=== PATIENT | male | born 1955 | race Two or more races ===

== ENCOUNTER 2018-05-25 11:29 | Inpatient (IN) | payer OTHER ==
[~2018-05-25] VITALS: Ht 180.3 cm; Wt 86.0 kg
[2018-05-25] MEDS ORDERED: morphine 4 MG/ML VIAL IV STA (12:21)
[2018-05-25] MEDS ORDERED: ONDANSETRON 4 MG INJ IV STA (12:21)
[2018-05-25] MEDS ORDERED: SOD CHLORIDE 0.9% 1,000 ML IV STA (12:21)
[2018-05-25] MEDS ORDERED: OMEG-176 PO (13:00)
[2018-05-25] MEDS ORDERED: MULTI PO (13:00)
[2018-05-25] MEDS ORDERED: HYDROmorphONE 2 MG/ML SYG IV STA (13:24)
--- NOTE | 2018-05-25 14:26 | ERD ---
ER Documentation Chief Complaint Chief Complaint pt bib RA [id number] fall last night at home, left knee pain, "maybe passed out" HPI Patient is a 63-year-old male with hypertension who presents with passing out and left leg pain. The patient said that last night at 11 PM he said "I fainted or my knee went out". He said that his left knee is swollen. He got up to go to the bathroom when this episode happened. He was brought in by ambulance. He is having left leg pain as well. He has had no treatment yet. He denies any bleeding. Upon review of old medical records this is the patient's first visit to the emergency department. He does have a primary doctor. ROS All systems reviewed and are negative except as per history of present illness. Medications Home Meds Reported Medications Paradise-3S/Dha/Epa/Fish Oil (Fish Oil 1,000 mg Softgel) 1 Each Capsule, 1 EACH PO DAILY, CAP 05/25/18 Multivitamins* (Theragran*) 1 Tab Tab, 1 TAB PO DAILY, TAB 05/25/18 Allergies Allergies: Coded Allergies: No Known Allergy (Unverified , 05/25/18) PMhx/Soc History of Surgery: Yes (BACK SURGERY X2,APPENDECTOMY,BRAIN SX) Anesthesia Reaction: No Hx Neurological Disorder: No Hx Respiratory Disorders: No Hx Cardiac Disorders: Yes (HTN) Hx Psychiatric Problems: No Hx Miscellaneous Medical Probl: Yes (HIGH CHOLESTEROL) Hx Alcohol Use: Yes Hx Substance Use: No Hx Tobacco Use: Yes Smoking Status: Current some day smoker FmHx Family History: No diabetes Physical Exam Vitals Vital Signs Date Temp Pulse Resp B/P (MAP) Pulse Ox O2 O2 Flow FiO2 Time Delivery Rate 05/25/18 98.3 74 18 84/51 (62) 98 11:31 Physical Exam Const: No acute distress Head: Atraumatic Eyes: Normal Conjunctiva ENT: Normal External Ears, Nose and Mouth. Neck: Full range of motion. No meningismus. Resp: Clear to auscultation bilaterally Cardio: Regular rate and rhythm, no murmurs Abd: Soft, non tender, non distended. Normal bowel sounds Skin: No petechiae or rashes Back: No midline or flank tenderness Ext: Swelling to the proximal tibia/fibula area, patient able to wiggle toes on the left foot and does have 2+ DP pulses Neur: Awake and alert Psych: Normal Mood and Affect Result Diagram: 05/25/18 1251 05/25/18 1251 Results 24 hrs Laboratory Tests Test 05/25/18 12:51 White Blood Count 16.8 10^3/ul Red Blood Count 4.25 10^6/ul Hemoglobin 14.1 g/dl Hematocrit 40.9 % Mean Corpuscular Volume 96.2 fl Mean Corpuscular Hemoglobin 33.2 pg Mean Corpuscular Hemoglobin Concent 34.5 g/dl Red Cell Distribution Width 13.1 % Platelet Count 219 10^3/UL Mean Platelet Volume 9.4 fl Immature Granulocytes % 0.400 % Neutrophils % 46.5 % Lymphocytes % 46.0 % Monocytes % 6.4 % Eosinophils % 0.3 % Basophils % 0.4 % Nucleated Red Blood Cells % 0.0 /100WBC Immature Granulocytes # 0.060 10^3/ul Neutrophils # 7.8 10^3/ul Lymphocytes # 7.7 10^3/ul Monocytes # 1.1 10^3/ul Eosinophils # 0.1 10^3/ul Basophils # 0.1 10^3/ul Nucleated Red Blood Cells # 0.0 10^3/ul Prothrombin Time 12.8 Sec Prothrombin Time Ratio 1.0 INR International Normalized Ratio 0.95 Activated Partial Thromboplast Time 26.3 Sec Sodium Level 130 mmol/L Potassium Level 3.9 mmol/L Chloride Level 92 mmol/L Carbon Dioxide Level 26 mmol/L Anion Gap 12 Blood Urea Nitrogen 15 mg/dl Creatinine 0.87 mg/dl Est Glomerular Filtrat Rate mL/min > 60 mL/min Glucose Level 127 mg/dl Calcium Level 8.7 mg/dl Total Bilirubin 1.0 mg/dl Direct Bilirubin 0.00 mg/dl Indirect Bilirubin 1.0 mg/dl Aspartate Amino Transf (AST/SGOT) 27 IU/L Alanine Aminotransferase (ALT/SGPT) 22 IU/L Alkaline Phosphatase 82 IU/L Troponin I < 0.012 ng/ml Total Protein 7.3 g/dl Albumin 4.1 g/dl Globulin 3.20 g/dl Albumin/Globulin Ratio 1.28 Lipase 58 U/L Current Medications Medications Dose Sig/Yuni Start Time Status Last (Trade) Ordered Route PRN Stop Time Admin Dose Reason Admin Sodium 1,000 ml @ Q1H STAT 05/25/18 DC 05/25/18 Chloride 1,000 mls/hr IV 12:21 12:42 05/25/18 13:20 Morphine 4 mg ONCE STAT 05/25/18 DC 05/25/18 Sulfate IV 12:21 12:42 (morphine) 05/25/18 12:23 Ondansetron 4 mg ONCE STAT 05/25/18 DC 05/25/18 HCl (Zofran IV 12:21 12:42 Inj) 05/25/18 12:23 1 mg ONCE STAT 05/25/18 DC 05/25/18 Hydromorphone IV 13:24 13:40 HCl 05/25/18 (Dilaudid) 13:25 Ondansetron 4 mg ER BRIDGE 05/25/18 HCl (Zofran PRN IV 14:30 Inj) NAUSEA AND/OR 05/26/18 VOMITING 14:29 650 mg ER BRIDGE 05/25/18 Acetaminophen PRN PO MILD 14:30 (Tylenol PAIN(1-3)OR 05/26/18 Tab) ELEVATED TEMP 14:29 Procedures/MDM X-ray of the left tibia/fibula read by me: Proximal tibia and fibula fractures with mild displacement, comminuted Chest x-ray read by radiology. Splint Note Type: Posterior long leg Location: Left lower extremity Indication: Proximal tibia and fibula fracture Splint Assessment: Neurovascularly intact post splint placement with good fit. Smoking Cessation Therapy: Pt. was lectured for greater than 3 minutes on the health risks of continued smoking and the benefits of cessation. EKG read by me: Rate/Rhythm: Regular rate and rhythm at a normal rate Intervals: Normal Impression: No evidence of ischemia or arrhythmia Patient is a 63-year-old male with hypertension who presents with syncope. The patient was found to have a proximal tibia and fibula fracture. I believe the patient likely syncopized and fell to the ground onto his left leg. 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 I spoke with Dr. Singh from orthopedic surgery who will see the patient for fixation. I spoke with Dr. Meza from the panel team for admission to a telemetry bed. I do believe that inpatient admission is appropriate at this time as the patient had syncope but also a fracture which will need surgical fixation at the patient will not be able to ambulate or do activities of daily living. Departure Diagnosis: Primary Impression: Tibia/fibula fracture, shaft Encounter type: initial encounter Fracture type: closed Laterality: left Qualified Codes: S82.202A - Unspecified fracture of shaft of left tibia, initial encounter for closed fracture; S82.402A - Unspecified fracture of shaft of left fibula, initial encounter for closed fracture Additional Impressions: Syncope Syncope type: unspecified Qualified Codes: R55 - Syncope and collapse Fall Encounter type: initial encounter Qualified Codes: W19.XXXA - Unspecified fall, initial encounter Condition: KAMAR Su MD May 25, 2018 14:26
[2018-05-25] MEDS ORDERED: ONDANSETRON 4 MG INJ IV PRN ×2 (14:30→16:00)
[2018-05-25] MEDS ORDERED: ACETAMINOPHEN 325 MG TAB PO PRN ×2 (14:30→16:00)
[2018-05-25] MEDS ORDERED: CHOL100062 PO (15:26)
[2018-05-25] MEDS ORDERED: CYAN100080 PO (15:27)
[2018-05-25] MEDS ORDERED: [UNRECOGNIZED DRUG - CODE] TP (15:28)
[2018-05-25] MEDS ORDERED: POLY17PO6 PO (15:30)
[2018-05-25] MEDS ORDERED: ATEN-51 PO (15:31)
[2018-05-25] MEDS ORDERED: AMLO2.5T78 PO (15:31)
[2018-05-25] MEDS ORDERED: ALBU90AE INHALATION (15:32)
[2018-05-25] MEDS ORDERED: MULT-105 PO (15:32)
[2018-05-25] MEDS ORDERED: VIA100 PO (15:33)
[2018-05-25] MEDS ORDERED: FLUO10TA PO (15:34)
[2018-05-25] MEDS ORDERED: [UNRECOGNIZED DRUG - CODE] IU (15:36)
[2018-05-25] MEDS ORDERED: ATOR40TA68 PO (15:37)
[2018-05-25] MEDS ORDERED: ASPI-817 PO (15:37)
[2018-05-25] MEDS ORDERED: AMLO5TAB4 PO (15:38)
--- NOTE | 2018-05-25 15:39 | HP ---
Date/Time of Note Date/Time of Note DATE: 05/25/18 TIME: 15:39 Assessment/Plan VTE Prophylaxis Pharmacological prophylaxis: LMWH Lines/Catheters IV Catheter Type (from [facility]): Saline Lock Assessment/Plan Hospital Course 63-year-old male with comorbidities including COPD, hypertension, dyslipidemia, and anxiety disorder with a ground-level fall with impact to the left lower extremity and imaging studies showing comminuted fracture of the left proximal tibia and mildly impacted fracture of the left proximal fibula, who will be admitted to inpatient setting for further treatment and evaluation. 1. Syncope. -Etiology unclear. -Obtain a 2D echocardiogram to evaluate left ventricular ejection fraction and evaluate for any structural heart disease. -Continue telemetry monitoring. -Rule out for any underlying ACS. -Obtain a carotid Doppler study to evaluate for any significant carotid artery stenosis. -Obtain a brain CT scan. -Obtain a cardiology evaluation. 2. Comminuted fracture of the left proximal tibia and mildly impacted fracture of the left proximal fibula. -Continue bedrest. -Continue pain control. -Start prophylactic anticoagulation. -Orthopedic surgery consult. -Nonweightbearing on the left lower extremity. 3. Abnormal EKG. -Will rule out the patient for any ACS. -Obtain cardiology consult. -Obtain 2D echocardiogram. 4. Hypertension. -The patient was recently advised by his provider to hold antihypertensives because of hypotension and syncopal episodes. -Hold antihypertensives. 5. Dyslipidemia. -Low-cholesterol diet -Obtain fasting lipid panel. 6. COPD. -Continue maintenance inhalers. -Continue PRN LULA. 7. Anxiety disorder. -Continue BuSpar. 8. Alcohol dependence. -Daily beer drinker. -Start Librium taper to prevent any DTs. -IV benzodiazepines for any active DTs. -Daily multivitamins. 9. Hyponatremia. -Etiology unclear. -We will obtain a serum and urine osmolality. -Obtain a serum TSH and a cortisol level. -Monitor. 10. Leukocytosis. -Etiology unclear. -Probably reactive in origin. -The patient remains afebrile. Plan: The patient will be admitted to inpatient telemetry floor. The patient will be started on a low-cholesterol diet. The patient will be started on DVT prophylaxis. The patient will remain a full code. Activities will be bedrest. The rest of the patient's management will be based on the clinical course, inputs from consultants, and the results of diagnostic studies. Based on the patient's clinical presentation, he most probably requires at least 2 midnights' stay for further management and evaluation of his clinical presentation. The patient was seen in collaboration with Dr. Meza. Result Diagram: 05/25/18 1251 05/25/18 1251 Results 24hrs Laboratory Tests Test 05/25/18 12:51 White Blood Count 16.8 H Red Blood Count 4.25 L Hemoglobin 14.1 Hematocrit 40.9 L Mean Corpuscular Volume 96.2 Mean Corpuscular Hemoglobin 33.2 H Mean Corpuscular Hemoglobin Concent 34.5 Red Cell Distribution Width 13.1 Platelet Count 219 Mean Platelet Volume 9.4 Immature Granulocytes % 0.400 Neutrophils % 46.5 Lymphocytes % 46.0 Monocytes % 6.4 Eosinophils % 0.3 Basophils % 0.4 Nucleated Red Blood Cells % 0.0 Immature Granulocytes # 0.060 H Neutrophils # 7.8 H Lymphocytes # 7.7 H Monocytes # 1.1 H Eosinophils # 0.1 Basophils # 0.1 Nucleated Red Blood Cells # 0.0 Prothrombin Time 12.8 Prothrombin Time Ratio 1.0 INR International Normalized Ratio 0.95 Activated Partial Thromboplast Time 26.3 Sodium Level 130 L Potassium Level 3.9 Chloride Level 92 L Carbon Dioxide Level 26 Anion Gap 12 Blood Urea Nitrogen 15 Creatinine 0.87 Est Glomerular Filtrat Rate mL/min > 60 Glucose Level 127 Calcium Level 8.7 Total Bilirubin 1.0 Direct Bilirubin 0.00 Indirect Bilirubin 1.0 Aspartate Amino Transf (AST/SGOT) 27 Alanine Aminotransferase (ALT/SGPT) 22 Alkaline Phosphatase 82 Troponin I < 0.012 Total Protein 7.3 Albumin 4.1 Globulin 3.20 Albumin/Globulin Ratio 1.28 Lipase 58 HPI/ROS Admit Date/Time Admit Date/Time May 25, 2018 at 14:20 Hx of Present Illness This is a 63-year-old male with a past medical history of hypertension currently off antihypertensives because of frequent fainting spells, COPD, dyslipidemia, and anxiety disorder. The patient had a fall last night at 11 PM in his apartment. The patient verbalized that he got out of his bed and walked to the bathroom and he does not remember anything. The next thing he remembers was him lying on the floor. The patient crawled to his bedroom. The patient called his neighbor the next morning and was brought to the ER by EMS. He reported pain in the left lower extremity and inability to ambulate. The patient does not remember if he hit his head. He verbalized that he has been having frequent episodes of fainting in the recent past and he was told not to take his antihypertensives because his syncopal episodes are caused by hypotension. The patient denied any chest pain and the patient denied any history of seizures. In the emergency room, the patient underwent a x-ray of the left lower extremity that was showing comminuted fracture of the left proximal tibia with mild medial and anterior displacement of the distal fracture fragments along with mildly impacted fracture of the left proximal fibula. A splint was put in by the ER physician. An orthopedic surgery consult was obtained. ROS Constitutional: no complaints Eyes: no complaints ENT: no complaints Respiratory: no complaints Cardiovascular: no complaints Gastrointestinal: no complaints Genitourinary: no complaints Musculoskeletal: bone/joint pain Skin: no complaints Neurologic: no complaints Endocrine: no complaints Lymphatic: no complaints Psychological: no complaints Immunologic: no complaints PMH/Family/Social Past Medical History 1. Dyslipidemia. 2. COPD. 3. Hypertension. 4. Anxiety disorder. Coded Allergies: No Known Allergy (Unverified , 05/25/18) Past Surgical History 1. Brain surgery as a child. 2. Appendectomy. Social History He is . Lives by himself in an apartment. Alcohol Use: heavy Smoking Status: Former smoker Drug Use: none Exam/Review of Systems Vital Signs Vitals Vital Signs Date Temp Pulse Resp B/P (MAP) Pulse Ox O2 O2 Flow FiO2 Time Delivery Rate 05/25/18 89 18 106/62 94 Nasal 2.0 14:41 (77) Cannula 05/25/18 98.3 11:31 Exam Exam General: Adequately build 63 year-old male lying in bed in no apparent distress. HEENT: Normocephalic. Surgical scar the scalp in the left occipitoparietal area. Eyes: Anicteric sclerae, conjunctivae clear. ENT: Nasal septum midline, oral mucosa moist. Neck supple, no JVD noticed. Respiratory: Bilaterally diminished breath sounds. No use of accessory muscles of respiration. No adventitious breath sounds. Cardiovascular: S1, S2 heard. Regular rate and rhythm. Abdomen: Soft, nontender, and nondistended. Bowel sounds positive in all 4 jhon drants. Genitourinary: Deferred. Extremities: No cyanosis, no clubbing. Peripheral pulses palpable. Left lower extremity crusting present. Toes on the left foot could be moved. Neurologic: Cranial nerves II through XII grossly intact. The patient is awake, alert, and oriented. Skin: Normal skin turgor. No skin rashes. Additional Comments CXR IMPRESSION: 1. No radiographic evidence of acute cardiopulmonary disease. 2. Mild cardiomegaly and aortic atherosclerosis. X-Ray Tibia/Fibula IMPRESSION: 1. Comminuted fracture of the left proximal tibia with mild medial and anterior displacement of the distal fracture fragments. 2. Mildly impacted fracture of the left proximal fibula. DU HOWARD NP May 25, 2018 15:39
[2018-05-25 15:42] VITALS: BP 110/76; PULSE 93; RESP 20
[2018-05-25] MEDS ORDERED: DOCU250C58 PO (15:42)
[2018-05-25] MEDS ORDERED: SYMB80120 INHALATION (15:42)
[2018-05-25] MEDS ORDERED: OMEG-135 PO (15:43)
[2018-05-25] MEDS ORDERED: TIOT18CA INHALATION (15:44)
[2018-05-25] MEDS ORDERED: FLUT16SP17 NASAL (15:44)
[2018-05-25] MEDS ORDERED: TRA100 PO (15:45)
[2018-05-25 15:46] VITALS: PULSE 91
[2018-05-25] MEDS ORDERED: BUSP10TA2 PO (15:46)
[2018-05-25 16:00] VITALS: PULSE 97
[2018-05-25] MEDS ORDERED: morphine 2 MG INJ IV PRN (16:00)
[2018-05-25] MEDS ORDERED: NACL 0.9% 3 ML SYG IV SCH (16:00)
[2018-05-25] MEDS ORDERED: ALBUTEROL 0.083% (NEB) 2.5 MG/3 ML AMP HHN PRN (16:30)
[2018-05-25 16:41] VITALS: Ht 180.3 cm; Wt 86.0 kg
[2018-05-25] MEDS ORDERED: LORAZEPAM 4 MG/ML VIAL IV PRN (17:00)
--- NOTE | 2018-05-25 18:58 | NUR ---
Admitted from ER with Dx of Proximal tib/fib fracture/ Syncope. Awake, A&O x4. Oriented to room, call light use. Skin assessment done, photo taken. Discussed plan of care. Received t/o from Dr. Rosi Singh for CT left knee/ankle, pro walk for long leg brace with dial lock at the knee, approval form sent to central supply.
[2018-05-25 19:32] VITALS: BP 121/68; PULSE 94; RESP 22
[2018-05-25 20:00] VITALS: PULSE 91
[2018-05-25] MEDS: ARFORMOTEROL TARTRATE 15MCG/2 ML AMP NEB SCH (20:25)
--- NOTE | 2018-05-25 21:40 | NUR ---
Pt had CT of Left leg done. Pt given all night medications. Pt currently in room resting. Will continue to monitor.
[2018-05-25] MEDS: BUSPIRONE 10 MG TAB PO SCH (21:41)
[2018-05-25] MEDS: traZODone 100 MG TAB PO SCH (21:41)
[2018-05-25] MEDS: CHLORDIAZEPOXIDE 25 MG CAP PO SCH (21:41)
[2018-05-25] MEDS: ATORVASTATIN 40 MG TAB PO SCH (21:42)
--- NOTE | 2018-05-25 23:00 | CONS ---
DATE OF ADMISSION: 05/25/2018 DATE OF CONSULTATION: 05/25/2018 REASON FOR CONSULTATION: Preoperative evaluation. REQUESTING PHYSICIAN: Car Anne from the hospitalist service. HISTORY OF PRESENT ILLNESS: Mr. Valente is a 63-year-old male with history of recurrent syncopal epis odes over a 6-month period per patient, hypertension, dyslipidemia, COPD, recent quitting of tobacco, alcohol dependence who presented status post a syncopal episode with left leg pain. Upon arrival, t emperature was 98.3, blood pressure 84/51, pulse 74, respiratory rate 18, satting 98%. The patient's labs revealed a white blood cell count of 16.8, hemoglobin 14.1, platelet count 219; sodium 130, pot assium 3.9, creatinine 0.8, BUN 15; TSH of 4.1, free T4 of 1.3; INR of 0.95. The patient underwent a tib-fib x-ray revealing a comminuted fracture of left proximal tibia with mild medial and anterior d isplacement of the distal fracture fragment and a chest x-ray that revealed mild cardiomegaly and aor tic atherosclerosis. The patient's electrocardiogram revealed normal sinus rhythm, rate of 96, luis l axis, normal intervals with lateral T-wave inversions. The patient subsequently has been admitted to the floor and since admit to the floor denies chest pain, shortness of breath. He does have leg p ain. The patient states that he remembers getting up to go to bathroom at night, then he went to get some Skittles, he said, and the next thing he knows he woke up on the ground. PAST MEDICAL HISTORY: As above in HPI. MEDICATIONS CURRENTLY IN HOSPITAL: 1. Lovenox 40 mg subcutaneous daily. 2. Spiriva. 3. Vitamin D. 4. Vitamin B12. 5. Prozac. 6. Flonase. 7. MiraLax. 8. Theragran. 9. Lipitor 40 mg at bedtime. 10. BuSpar. 11. Trazodone. 12. Librium. 13. Ativan. 14. Morphine. ALLERGIES: NO KNOWN DRUG ALLERGIES. SOCIAL HISTORY: Remote tobacco, quit x1 to 2 months. Positive EtOH dependence. No illicit drug use . FAMILY HISTORY: No history of sudden cardiac or early CAD. REVIEW OF SYSTEMS: As above in HPI. CONSTITUTIONAL: No fevers or chills. PULMONARY: No current shortness of breath. CARDIOVASCULAR: No current chest pain. GASTROINTESTINAL: No vomiting. GENITOURINARY: No hematuria. MUSCULOSKELETAL: Degenerative joint disease, leg fracture. PSYCHIATRIC: The patient denies depression. NEUROLOGIC: No documented history of CVA. ENDOCRINE: No documented history of diabetes mellitus. PHYSICAL EXAMINATION: VITAL SIGNS: Temperature 98, blood pressure 110/76, pulse 92, respiratory rate 20, satting 98%. GENERAL: The patient is alert, awake, no acute distress. NECK: JVP approximately 8 to 9 cm of water. CHEST: Fair air movement throughout. HEART: Regular rate and rhythm, normal S1 and S2, I/ systolic murmur, nondisplaced PMI. ABDOMEN: Positive bowel sounds, soft. EXTREMITIES: No significant pitting edema, 1+ pulses in bilateral posterior tibial, left leg in a dr edgar. LABORATORIES: As above in HPI with most recently from today: Sodium 130, potassium 3.9, creatinine 0.8, BUN 15. TSH of 4.1. IMAGING STUDIES: As above in HPI. No further imaging studies for my review at this time. ECG: As above in HPI. No further electrocardiograms for my review at this time. IMPRESSION: 1. Syncope, rule out cardiac etiology, rule out cardiac arrhythmia. 2. Abnormal electrocardiogram, assess for acute coronary syndrome. 3. Dyslipidemia without medications. 4. Left tibia fracture. 5. History of chronic obstructive pulmonary disease. 6. Possible anxiety disorder. 7. Hyponatremia. 8. Leukocytosis. RECOMMENDATIONS: 1. At this time, we would maintain the patient on telemetry monitoring to assess for any possible ar rhythmia that caused patient's fall. 2. We will give patient IV fluid hydration and follow volume status closely. 3. Check a 2D echo to further assess this patient's ejection fraction, wall motion, any major abnorm alities. 4. Complete the patient's rule out for myocardial infarction to ensure this patient's constellation of symptoms are not a result of an acute coronary syndrome such as acute myocardial infarction. 5. Continue the patient's statin and adjust it according to a fasting lipid panel to be checked. 6. Continue to check serial EKGs to assess for any significant ongoing changes, repeat EKG in the mo rning, EKG for any complaints of chest pain or change in rhythm. 7. Pending ortho evaluation with probable need for lower extremity surgery. 8. Further recommendations pertaining to the surgical candidacy of the patient will be made after co mpletion of above studies including a 2D echo, serial troponin analysis, and serial blood pressures. Thank you for allowing me to take part in the care of this patient. I will continue to follow along very closely with you with further recommendations to be made as the patient progresses through his [facility] clinical course. Dictated By: IVANA TORRES/KAROLINE Conf#: [id number] DID#: [id number] CC: CAR ANNE BUCKRAM SEWER; JOHNY ROPER MD;*End*
[2018-05-25 23:35] VITALS: BP 121/71; PULSE 93; RESP 17
[2018-05-26] VITALS (13 sets, daily range): BP systolic 117–159; BP diastolic 64–78; PULSE 86–105; RESP 18–22
--- NOTE | 2018-05-26 07:29 | NUR ---
EOSS: Pt in room resting comfortably. Pt has no complaints, no s/s of distress. Bedside shift report given to ARLENE West.
[2018-05-26] MEDS: ARFORMOTEROL TARTRATE 15MCG/2 ML AMP NEB SCH ×2 (08:19→21:14)
[2018-05-26] MEDS: CHOLECALCIFEROL 1,000 UNIT TAB PO SCH (08:58)
[2018-05-26] MEDS: CYANOCOBALAMIN 500 MCG TAB PO SCH (08:58)
[2018-05-26] MEDS: TIOTROPIUM 18 MCG CAPSULE INHA DEV INH SCH (08:58)
[2018-05-26] MEDS: MULTIVITAMINS THERAPEUTIC TAB PO SCH (08:58)
[2018-05-26] MEDS: CHLORDIAZEPOXIDE 25 MG CAP PO SCH ×3 (08:58→20:30)
[2018-05-26] MEDS: FLUOXETINE 10 MG CAP PO SCH (08:58)
[2018-05-26] MEDS: BUSPIRONE 10 MG TAB PO SCH ×3 (08:58→21:29)
[2018-05-26] MEDS: DOCUSATE SODIUM 250 MG CAP PO SCH (08:58)
[2018-05-26] MEDS: FLUTICASONE 0.05% 16 GM NAS SPRAY NASAL SCH (08:58)
[2018-05-26] MEDS: POLYETHYLENE GLYCOL 17 GM PACKET PO SCH (08:58)
[2018-05-26] MEDS: ENOXAPARIN 40 MG/0.4 ML SYG SC SCH (09:32)
[2018-05-26] MEDS: morphine SULFATE/PF (2 MG/2 ML) SYG IV PRN ×3 (09:33→20:28)
[2018-05-26] MEDS ORDERED: IOHEXOL 100 ML ONE (14:11)
[2018-05-26] MEDS ORDERED: SOD CHLORIDE 0.9% 100 ML ONE (14:11)
--- NOTE | 2018-05-26 14:15 | PN ---
Date/Time of Note Date/Time of Note DATE: 05/26/18 TIME: 14:07 Assessment/Plan VTE Prophylaxis Risk score (from Ns)>0 risk: 5 SCD applied (from Ns): No SCD contraindicated: other Pharmacological prophylaxis: LMWH Lines/Catheters IV C[facility]ter Type ([facility] Saline Lock Assessment/Plan Hospital Course SUBJECTIVE: LLE pain well controlled. OBJECTIVE: Physical Exam General: Adequately build 63 year-old male lying in bed in no apparent distress. HEENT: Normocephalic. Surgical scar the scalp in the left occipitoparietal area. Eyes: Anicteric sclerae, conjunctivae clear. ENT: Nasal septum midline, oral mucosa moist. Neck supple, no JVD noticed. Respiratory: Bilaterally diminished breath sounds. No use of accessory muscles of respiration. No adventitious breath sounds. Cardiovascular: S1, S2 heard. Regular rate and rhythm. Abdomen: Soft, nontender, and nondistended. Bowel sounds positive in all 4 quadrants. Genitourinary: Deferred. Extremities: No cyanosis, no clubbing. Peripheral pulses palpable. Left lower extremity crusting present. Toes on the left foot could be moved. Neurologic: Cranial nerves II through XII grossly intact. The patient is awake, alert, and oriented. Skin: Normal skin turgor. No skin rashes. Labs & Vitals per chart ASSESSMENT & PLAN 63-year-old male with comorbidities including COPD, hypertension, dyslipidemia, and anxiety disorder with a ground-level fall with impact to the left lower extremity and imaging studies showing comminuted fracture of the left proximal tibia and mildly impacted fracture of the left proximal fibula, who was admitted to inpatient setting for further treatment and evaluation. 1. Syncope. -Etiology unclear. -Pending 2D echocardiogram to evaluate left ventricular ejection fraction and evaluate for any structural heart disease. -Continue telemetry monitoring. -Ruled out for any underlying ACS. -Carotid Doppler study showing moderate stenosis (50 - 69%) of the right internal carotid artery. -Brain CT scan negative for any acute findings. -Cardiology following. 2. Comminuted fracture of the left proximal tibia and mildly impacted fracture of the left proximal fibula. -Continue bedrest. -Continue pain control. -Continue prophylactic anticoagulation. -Orthopedic surgery consult. -Nonweightbearing on the left lower extremity. 3. Abnormal EKG. -Troponins negative. -Cardiology following. -Pending 2D echocardiogram. 4. Hypertension. -The patient was recently advised by his provider to hold antihypertensives because of hypotension and syncopal episodes. -Hold antihypertensives. 5. Dyslipidemia. -Low-cholesterol diet -Fasting lipid panel satisfactory. 6. COPD. -Continue maintenance inhalers. -Continue PRN LULA. 7. Anxiety disorder. -Continue BuSpar. 8. Alcohol dependence. -Daily beer drinker. -Continue Librium taper to prevent any DTs. -IV benzodiazepines for any active DTs. -Daily multivitamins. 9. Hyponatremia. -Etiology unclear. -Hypotonic. Probably secondary to alcoholism. 10. Leukocytosis. -Etiology unclear. -Probably reactive in origin. -The patient remains afebrile. 11. Fluids, electrolytes, and nutrition. -Low-cholesterol diet. 12. DVT prophylaxis. -Subcutaneous Lovenox. 13. Plan. -Obtain a CT to evaluate for any carotid stenosis. -Await cardiac clearance for surgical intervention. -Continue pain control. -Continue nonweightbearing of the left lower extremity. The patient was seen in collaboration with Dr. Mcintosh. Result Diagram: 05/26/18 0511 05/26/18 0511 Results 24hrs Laboratory Tests Test 05/25/18 17:33 05/25/18 17:50 05/26/18 05:11 Creatine Kinase 135 126 Creatine Kinase Index 1.3 1.6 Creatinine Kinase MB (Mass) 1.77 2.05 Troponin I < 0.012 < 0.012 Urine Osmolality 553 Urine Opiates Screen Positive Urine Barbiturates Negative Urine Amphetamines Screen Negative Urine Benzodiazepines Screen Negative Urine Cocaine Screen Negative Urine Cannabinoids Negative White Blood Count 14.9 H Red Blood Count 3.44 L Hemoglobin 11.6 L Hematocrit 33.6 L Mean Corpuscular Volume 97.7 Mean Corpuscular Hemoglobin 33.7 H Mean Corpuscular 34.5 Hemoglobin Concent Red Cell Distribution Width 12.9 Platelet Count 165 # Mean Platelet Volume 9.5 Immature Granulocytes % 0.400 Neutrophils % Segmented Neutrophils % (Manual) 43 Band Neutrophils % (Manual) 3 Lymphocytes % Lymphocytes % (Manual) 33 Reactive Lymphocytes % (Manual) 14 H Monocytes % Monocytes % (Manual) 3 Eosinophils % Eosinophils % (Manual) 2 Basophils % Basophils % (Manual) 1 Metamyelocytes % (manual) 1 H Nucleated Red Blood Cells % 0.0 Immature Granulocytes # 0.060 H Neutrophils # Neutrophils # (Manual) 6.5 Band Neutrophils # 0.4 Lymphocytes (Manual) 4.9 H Lymphocytes # Reactive Lymphocytes # 2.0 H Monocytes # Monocytes # (Manual) 0.4 Eosinophils # Basophils # Basophils # (Manual) 0.1 H Metamyelocytes # 0.1 H Nucleated Red Blood Cells # Platelet Estimate NORMAL Anisocytosis 1+ Prothrombin Time 13.9 Prothrombin Time Ratio 1.1 INR International 1.06 Normalized Ratio Activated Partial Thromboplast 29.2 Time Sodium Level 132 L Potassium Level 4.6 Chloride Level 93 L Carbon Dioxide Level 29 Anion Gap 10 Blood Urea Nitrogen 19 Creatinine 0.77 Est Glomerular Filtrat > 60 Rate mL/min Glucose Level 111 Calcium Level 8.4 Phosphorus Level 3.8 Magnesium Level 2.0 Total Bilirubin 0.9 Direct Bilirubin 0.00 Indirect Bilirubin 0.9 Aspartate Amino 21 Transf (AST/SGOT) Alanine 26 Aminotransferase (ALT/SGPT) Alkaline Phosphatase 65 Total Protein 5.8 #L Albumin 3.4 Globulin 2.40 Albumin/Globulin Ratio 1.41 Triglycerides Level 61 Cholesterol Level 126 LDL Cholesterol, Calculated 65 HDL Cholesterol 49 Cholesterol/HDL Ratio 2.5 Exam/Review of Systems Vital Signs Vitals Vital Signs Date Temp Pulse Resp B/P (MAP) Pulse Ox O2 O2 Flow FiO2 Time Delivery Rate 05/26/18 88 12:51 05/26/18 98.0 20 159/72 92 Nasal 11:33 (101) Cannula 05/26/18 2.0 08:26 Intake and Output 05/25/18 05/25/18 05/26/18 1515:00 23:00 07:00 IntakeIntake Total 400 ml 540 ml OutputOutput Total 100 ml 650 ml BalanceBalance 300 ml -110 ml Medications Medications Current Medications IV Flush (NS 3 ml) 3 ml PER PROTOCOL IV ; Start 05/25/18 at 16:00 Ondansetron HCl (Zofran Inj) 4 mg Q6H PRN IV NAUSEA AND/OR VOMITING; Start 05/25/18 at 16:00 Acetaminophen (Tylenol Tab) 650 mg Q6H PRN PO PAIN LEVEL 1-3 OR FEVER; Start 05/25/18 at 16:00 Acetaminophen/ Hydrocodone Bitart ([place] (5/325)) 1 tab Q6H PRN PO PAIN LEVEL 4-6; Start 05/25/18 at 16:00 Enoxaparin Sodium (Lovenox) 40 mg DAILY SC Last administered on 05/26/18 09:32; Admin Dose 40 MG; Start 05/26/18 at 09:00 Tiotropium [place] (Spiriva) 1 inh DAILY INH Last administered on 05/26/18 08:58; Admin Dose 1 INH; Start 05/26/18 at 09:00 Albuterol (Proventil 0.083% (Neb)) 2.5 mg Q4H RESP THERAPY PRN HHN SHORTNESS OF BREATH; Start 05/25/18 at 16:30 Atorvastatin Calcium (Lipitor) 40 mg QHS PO Last administered on 05/25/18 21:42; Admin Dose 40 MG; Start 05/25/18 at 21:00 Buspirone HCl (Buspar) 10 mg TID PO Last administered on 05/26/18 12:35; Admin Dose 10 MG; Start 05/25/18 at 21:00 Cholecalciferol (Vitamin D) 1,000 unit DAILY PO Last administered on 05/26/18 08:58; Admin Dose 1,000 UNIT; Start 05/26/18 at 09:00 Cyanocobalamin (Vitamin B12) 1,000 mcg DAILY PO Last administered on 05/26/18 08:58; Admin Dose 1,000 MCG; Start 05/26/18 at 09:00 Docusate Sodium (Colace) 250 mg DAILY PO Last administered on 05/26/18 08:58; Admin Dose 250 MG; Start 05/26/18 at 09:00 Fluoxetine HCl (Prozac) 10 mg DAILY PO Last administered on 05/26/18 08:58; Admin Dose 10 MG; Start 05/26/18 at 09:00 Fluticasone Propionate (Flonase 0.05% Nasal) 1 spray DAILY NASAL Last administered on 05/26/18 08:58; Admin Dose 1 SPRAY; Start 05/26/18 at 09:00 Polyethylene Glycol (Miralax) 17 gm DAILY PO Last administered on 05/26/18 08:58; Admin Dose 17 GM; Start 05/26/18 at 09:00 Trazodone HCl (Desyrel) 100 mg QHS PO Last administered on 05/25/18 21:41; Admin Dose 100 MG; Start 05/25/18 at 21:00 Arformoterol Tartrate (Brovana (Neb)) 2 ml BID RESP THERAPY NEB Last administered on 05/26/18 08:19; Admin Dose 2 ML; Start 05/25/18 at 20:00 Chlordiazepoxide (Librium) 25 mg TID PO Last administered on 05/26/18at 12:35; Admin Dose 25 MG; Start 05/25/18 at 21:00 Lorazepam (Ativan) 1 mg Q2H PRN IV Anxiety; Start 05/25/18 at 17:00 Multivitamins Therapeutic (Theragran) 1 tab DAILY PO Last administered on 05/26/18at 08:58; Admin Dose 1 TAB; Start 05/26/18 at 09:00 Morphine Sulfate (morphine SULFATE (PF)) 2 mg Q4H PRN IV PAIN LEVEL 7-10 Last administered on 05/26/18 09:33; Admin Dose 2 MG; Start 05/25/18 at 22:00 DU HOWARD NP May 26, 2018 14:15
--- NOTE | 2018-05-26 15:07 | CONS ---
Date/Time of Note Date/Time of Note DATE: 05/26/18 TIME: 15:04 Assessment/Plan Assessment/Plan Hospital Course IMPRESSION: 1. Syncope, rule out cardiac etiology, rule out cardiac arrhythmia. -neg trop x 3 2. Abnormal electrocardiogram, assess for acute coronary syndrome. 3. Dyslipidemia without medications. 4. Left tibia fracture. 5. History of chronic obstructive pulmonary disease. 6. Possible anxiety disorder. 7. Hyponatremia-slowly improving 8. Leukocytosis. REcc: -Tele -start BB -will f/u echo -pain control -continue statin -pnding ortho eval Result Diagram: 05/26/18 0511 05/26/18 0511 Results 24hrs Laboratory Tests Test 05/25/18 17:33 05/25/18 17:50 05/26/18 05:11 Creatine Kinase 135 126 Creatine Kinase Index 1.3 1.6 Creatinine Kinase MB (Mass) 1.77 2.05 Troponin I < 0.012 < 0.012 Urine Osmolality 553 Urine Opiates Screen Positive Urine Barbiturates Negative Urine Amphetamines Screen Negative Urine Benzodiazepines Screen Negative Urine Cocaine Screen Negative Urine Cannabinoids Negative White Blood Count 14.9 H Red Blood Count 3.44 L Hemoglobin 11.6 L Hematocrit 33.6 L Mean Corpuscular Volume 97.7 Mean Corpuscular Hemoglobin 33.7 H Mean Corpuscular 34.5 Hemoglobin Concent Red Cell Distribution Width 12.9 Platelet Count 165 # Mean Platelet Volume 9.5 Immature Granulocytes % 0.400 Neutrophils % Segmented Neutrophils % (Manual) 43 Band Neutrophils % (Manual) 3 Lymphocytes % Lymphocytes % (Manual) 33 Reactive Lymphocytes % (Manual) 14 H Monocytes % Monocytes % (Manual) 3 Eosinophils % Eosinophils % (Manual) 2 Basophils % Basophils % (Manual) 1 Metamyelocytes % (manual) 1 H Nucleated Red Blood Cells % 0.0 Immature Granulocytes # 0.060 H Neutrophils # Neutrophils # (Manual) 6.5 Band Neutrophils # 0.4 Lymphocytes (Manual) 4.9 H Lymphocytes # Reactive Lymphocytes # 2.0 H Monocytes # Monocytes # (Manual) 0.4 Eosinophils # Basophils # Basophils # (Manual) 0.1 H Metamyelocytes # 0.1 H Nucleated Red Blood Cells # Platelet Estimate NORMAL Anisocytosis 1+ Prothrombin Time 13.9 Prothrombin Time Ratio 1.1 INR International 1.06 Normalized Ratio Activated Partial Thromboplast 29.2 Time Sodium Level 132 L Potassium Level 4.6 Chloride Level 93 L Carbon Dioxide Level 29 Anion Gap 10 Blood Urea Nitrogen 19 Creatinine 0.77 Est Glomerular Filtrat > 60 Rate mL/min Glucose Level 111 Calcium Level 8.4 Phosphorus Level 3.8 Magnesium Level 2.0 Total Bilirubin 0.9 Direct Bilirubin 0.00 Indirect Bilirubin 0.9 Aspartate Amino 21 Transf (AST/SGOT) Alanine 26 Aminotransferase (ALT/SGPT) Alkaline Phosphatase 65 Total Protein 5.8 #L Albumin 3.4 Globulin 2.40 Albumin/Globulin Ratio 1.41 Triglycerides Level 61 Cholesterol Level 126 LDL Cholesterol, Calculated 65 HDL Cholesterol 49 Cholesterol/HDL Ratio 2.5 Consultation Date/Type/Reason Admit Date/Time May 25, 2018 at 14:20 Initial Consult Date 05/25/18 Type of Consult cardiology Reason for Consultation syncope Requesting Provider: DU HOWARD [employer] ESTIMATING MANAGER Exam/Review of Systems Vital Signs Vitals Vital Signs Date Temp Pulse Resp B/P (MAP) Pulse Ox O2 O2 Flow FiO2 Time Delivery Rate 05/26/18 88 12:51 05/26/18 98.0 20 159/72 92 Nasal 11:33 (101) Cannula 05/26/18 2.0 08:26 Intake and Output 05/25/18 05/25/18 05/26/18 1515:00 23:00 07:00 IntakeIntake Total 400 ml 540 ml OutputOutput Total 100 ml 650 ml BalanceBalance 300 ml -110 ml Exam Review of Systems: CONSTITUTIONAL: No fevers, chills. PULMONARY: No sob CARDIOVASCULAR: No chest pain/palpitations GASTROINTESTINAL: No nausea/vomiting. GENITOURINARY: No hematuria/dysuria. MUSCULOSKELETAL: pain in leg PSYCHIATRIC: The patient denies depression. NEUROLOGIC: No weakness Constitutional: alert Psych: no complaints Head: normocephalic ENMT: mucosa pink and moist Neck: supple, jvd (9 cm water) Respiratory: clear to auscultation Cardiovascular: regular rate and rhythm Gastrointestinal: soft, non-tender Musculoskeletal: muscle tone (normal) Extremities: edema (none) Neurological: other (NO focval deficits) Medications Medications Current Medications IV Flush (NS 3 ml) 3 ml PER PROTOCOL IV ; Start 05/25/18 at 16:00 Ondansetron HCl (Zofran Inj) 4 mg Q6H PRN IV NAUSEA AND/OR VOMITING; Start 05/25/18 at 16:00 Acetaminophen (Tylenol Tab) 650 mg Q6H PRN PO PAIN LEVEL 1-3 OR FEVER; Start 05/25/18 at 16:00 Acetaminophen/ Hydrocodone Bitart ([place] (5/325)) 1 tab Q6H PRN PO PAIN LEVEL 4-6; Start 05/25/18 at 16:00 Enoxaparin Sodium (Lovenox) 40 mg DAILY SC Last administered on 05/26/18 09:32; Admin Dose 40 MG; Start 05/26/18 at 09:00 Tiotropium [place] (Spiriva) 1 inh DAILY INH Last administered on 05/26/18 08:58; Admin Dose 1 INH; Start 05/26/18 at 09:00 Albuterol (Proventil 0.083% (Neb)) 2.5 mg Q4H RESP THERAPY PRN HHN SHORTNESS OF BREATH; Start 05/25/18 at 16:30 Atorvastatin Calcium (Lipitor) 40 mg QHS PO Last administered on 05/25/18at 21:42; Admin Dose 40 MG; Start 05/25/18 at 21:00 Buspirone HCl (Buspar) 10 mg TID PO Last administered on 05/26/18at 12:35; Admin Dose 10 MG; Start 05/25/18 at 21:00 Cholecalciferol (Vitamin D) 1,000 unit DAILY PO Last administered on 05/26/18 08:58; Admin Dose 1,000 UNIT; Start 05/26/18 at 09:00 Cyanocobalamin (Vitamin B12) 1,000 mcg DAILY PO Last administered on 05/26/18 08:58; Admin Dose 1,000 MCG; Start 05/26/18 at 09:00 Docusate Sodium (Colace) 250 mg DAILY PO Last administered on 05/26/18 08:58; Admin Dose 250 MG; Start 05/26/18 at 09:00 Fluoxetine HCl (Prozac) 10 mg DAILY PO Last administered on 05/26/18 08:58; Admin Dose 10 MG; Start 05/26/18 at 09:00 Fluticasone Propionate (Flonase 0.05% Nasal) 1 spray DAILY NASAL Last administered on 05/26/18 08:58; Admin Dose 1 SPRAY; Start 05/26/18 at 09:00 Polyethylene Glycol (Miralax) 17 gm DAILY PO Last administered on 05/26/18 08:58; Admin Dose 17 GM; Start 05/26/18 at 09:00 Trazodone HCl (Desyrel) 100 mg QHS PO Last administered on 05/25/18 21:41; Admin Dose 100 MG; Start 05/25/18 at 21:00 Arformoterol Tartrate (Brovana (Neb)) 2 ml BID RESP THERAPY NEB Last administered on 05/26/18 08:19; Admin Dose 2 ML; Start 05/25/18 at 20:00 Chlordiazepoxide (Librium) 25 mg TID PO Last administered on 05/26/18 12:35; Admin Dose 25 MG; Start 05/25/18 at 21:00 Lorazepam (Ativan) 1 mg Q2H PRN IV Anxiety; Start 05/25/18 at 17:00 Multivitamins Therapeutic (Theragran) 1 tab DAILY PO Last administered on 05/26/18 08:58; Admin Dose 1 TAB; Start 05/26/18 at 09:00 Morphine Sulfate (morphine SULFATE (PF)) 2 mg Q4H PRN IV PAIN LEVEL 7-10 Last administered on 05/26/18 09:33; Admin Dose 2 MG; Start 05/25/18 at 22:00 IVANA LANGSTON May 26, 2018 15:06
[2018-05-26] MEDS ORDERED: HYDROmorphONE 1 MG/ML SYG IV ONE ×2 (16:00)
--- NOTE | 2018-05-26 17:16 | RADRPT ---
Echocardiogram Report Patient Name: ANDREA MAS Gender: Male Date: 1955 Study Date: 26-May-2018 Editor Managing Director: Raeann Mendez RDCS Location: 603-A Ref. Physician: DU HOWARD Quality: Adequate Procedures: Transthoracic echocardiogram with complete 2D, M-Mode, and doppler examination. Indications: Evaluate Left Ventricular function. 2D/M Mode Doppler Measurement Value Normal Ranges Measurement Value Normal Ranges LVIDd 2D 3.4 3.5 - 5.6 cm AV Peak Yoandy 1.1 m/sec LVIDs 2D 2.3 2.1 - 4.1 cm AV Peak PG 5.0 mmHg FS 2D 32.5 % AI Peak PG 38.0 mmHg LVPWd 2D 1.1 0.6 - 1.1 cm AI Peak Yoandy 3.1 m/sec IVSd 2D 0.9 0.6 - 1.1 cm AI PHT 583.0 msec IVS/LVPW 2D 0.9 LVOT Peak Yoandy 0.9 m/sec AoR Diam 2D 3.8 2.0 - 3.7 cm LVOT Peak PG 3.0 mmHg LA/Ao 2D 1 0 - 1 MV E Peak Yoandy 0.6 m/sec EDV 2D 38.6 cm3 MV A Peak Yoandy 0.9 m/sec ESV 2D 11.9 cm3 MV E/A 0.6 LA Dimen 2D 3.6 2.3 - 4.0 cm MV Decel Time 183 msec MV E/A 0.6 Findings Left Ventricle: Normal left ventricular systolic function. Normal left ventricular cavity size. Left ventricular wall thickness upper limits of normal. Ejection fraction is visually estimated at 60 %. Tissue Doppler/Mitral Doppler indices are consistent with impaired relaxation (Stage I diastolic dysfunction). Right Ventricle: Normal right ventricular size. Normal right ventricular systolic function. Left Atrium: The left atrium is normal in size. Right Atrium: The right atrium is normal in size. Atrial Septum: Normal atrial septum. Bubble study was performed with and with out valsalva indicating no evidence of intra atrial shunt. Mitral Valve: Normal appearance of the mitral valve. Trace mitral regurgitation. Aortic Valve: Normal appearance of the aortic valve. Mild aortic valve regurgitation. Tricuspid Valve: Normal appearance of the tricuspid valve. There is trace tricuspid regurgitation. Pericardium: There is an anterior echo free space consistent with epicardial fat pad. Aorta: Sinotubular junction: 3.80 cm. IVC: Normal size and normal respiratory collapse consistent with normal right atrial pressure. Conclusions Normal left ventricular systolic function. Normal left ventricular cavity size. Left ventricular wall thickness upper limits of normal. Ejection fraction is visually estimated at 60 %. Tissue Doppler/Mitral Doppler indices are consistent with impaired relaxation (Stage I diastolic dysfunction). Normal atrial septum. Bubble study was performed with and with out valsalva indicating no evidence of intra atrial shunt. Normal appearance of the mitral valve. Trace mitral regurgitation. Normal appearance of the aortic valve. Mild aortic valve regurgitation. Normal appearance of the tricuspid valve. There is trace tricuspid regurgitation. Electronically Signed By: Herminio Mac 26-May-2018 17:15:48 -0800 Patient Name: ANDREA MAS Study Date: 26-May-2018 [id number]
--- NOTE | 2018-05-26 18:34 | NUR ---
Seen by Dr. Singh, assisted MD to re-align left leg w/ long leg brace applied. Pre medicated with dilaudid 1 mg IV once. Repeat xray of left knee/leg was ordered by MD. Plan : Awaiting for cardiac clearance for possible surgery.
[2018-05-26] MEDS: ATORVASTATIN 40 MG TAB PO SCH (20:28)
[2018-05-26] MEDS: traZODone 100 MG TAB PO SCH (20:29)
[2018-05-26] MEDS: METOPROLOL 25 MG TAB PO SCH (20:30)
--- NOTE | 2018-05-26 22:03 | CONS ---
DATE OF ADMISSION: 05/25/2018 DATE OF CONSULTATION: 05/25/2018 HISTORY OF PRESENT ILLNESS: The patient is a 63-year-old male, who was admitted on 05/25/2018 when daxa woodard was brought into the emergency room because of the painful swelling involving his left lower extrem ity, which developed following a fall during his fainting spell. He is not exactly sure what was the mechanism of injury to his left lower extremity. However, after the fall, he could not stand up or walk because of the pain. PAST HISTORY: He is known to have several medical problems including hypertension, dyslipidemia, [employer] D and anxiety disorder. He is known to be a smoker, and he also has alcohol dependency. He had an a ppendectomy and back surgery in the past. PHYSICAL EXAMINATION: My examination revealed a 63-year-old male, who is not in any acute distress. His left lower extremity was immobilized in a long leg brace with a dial lock at the knee joint. Li mited examination through the brace revealed an obvious swelling around the left knee along with the tenderness over the proximal portion of the left leg. There was no local tenderness around the left ankle, and there were mild swelling, probably from the swelling around the left knee. There was no evidence of acute neurovascular compromise involving the left lower extremity. DIAGNOSTIC STUDIES: X-rays of the left knee and leg revealed a presence of fracture involving the pr oximal shaft of the left tibia with extension up to the medial tibial plateau along with the x-rays i nvolving the fibular neck. The fractures were minimally displaced. DIAGNOSTIC IMPRESSION: Orthopedic surgical problem is fracture involving the proximal shaft of the l eft tibia combined with the undisplaced medial tibial plateau fracture along with the fibular neck fr acture. TREATMENT PLAN: 1. Trial of conservative nonsurgical treatment with manipulative reduction and immobilization in a l eleanor leg brace. 2. If the alignment was not satisfactory or cannot be maintained in a satisfactory alignment, then o pen reduction and internal fixation of the proximal tibia and medial tibial plateau fracture have to be considered. Dictated By: KELSEY SOL MD IK/NTS Conf#: [id number] DID#: [id number] CC: JOHNY ROPER MD;*EndCC*
--- NOTE | 2018-05-26 23:36 | OPR ---
DATE OF OPERATION: 05/26/2018 PREOPERATIVE DIAGNOSIS: Proximal tibial shaft fracture with extension into the medial tibial plateau along with the fibular neck fracture. POSTOPERATIVE DIAGNOSIS: Proximal tibial shaft fracture with extension into the medial tibial platea u along with the fibular neck fracture. PROCEDURE PERFORMED: Manipulative reduction of the proximal tibial shaft fracture with extension int o the medial tibial plateau followed by immobilization of the left lower extremity in a long leg brac e. ANESTHESIA: IV sedation with 1 mg of Dilaudid. SURGEON: Kelsey Sol MD. DESCRIPTION OF PROCEDURE: After positioning the patient properly, the proximal thigh portion of the long leg brace was stabilized in the proximal femur, and then with the distal portion of the brace fr ee of the leg, manipulative reduction was carried out by exerting distal axial pull along with the ro tatory adjustment and then this was stabilized by applying the distal portion of the brace into the p roximal and mid portion of the leg. After the stabilization, the ____ lock of the knee was locked in full extension. The patient tolerated the entire procedure very well without any unusual problems. Postop, repeated x-rays were ordered. Dictated By: KELSEY SOL MD IK/NTS Conf#: [id number] DID#: [id number] CC: JOHNY ROPER MD;*EndCC*
[2018-05-27] VITALS (9 sets, daily range): BP systolic 114–141; BP diastolic 55–73; PULSE 69–106; RESP 16–18
--- NOTE | 2018-05-27 07:13 | NUR ---
EOSS Hourly rounding performed, vitals stable through night, pt with leg pain r/t to fall injury, pain meds administered. Pt currently resting in bed, bed alarm on, call light within reach.
[2018-05-27] MEDS: ARFORMOTEROL TARTRATE 15MCG/2 ML AMP NEB SCH ×2 (08:27→19:49)
--- NOTE | 2018-05-27 08:40 | RADRPT ---
Vent Rate: 95 bpm RR Interval: 0 msec MS Interval: 152 msec QRS Duration: 88 msec QT Interval: 360 msec QTC Interval: 452 msec P-R-T [place]: 78 - 79 - 84 degrees Normal sinus rhythm Anteroseptal infarct , age undetermined Abnormal ECG Electronically Signed By: Chance Mcelroy [id number]
[2018-05-27] MEDS: CHOLECALCIFEROL 1,000 UNIT TAB PO SCH (09:30)
[2018-05-27] MEDS: BUSPIRONE 10 MG TAB PO SCH ×3 (09:30→20:44)
[2018-05-27] MEDS: METOPROLOL 25 MG TAB PO SCH ×2 (09:30→20:45)
[2018-05-27] MEDS: FLUOXETINE 10 MG CAP PO SCH (09:30)
[2018-05-27] MEDS: DOCUSATE SODIUM 250 MG CAP PO SCH (09:31)
[2018-05-27] MEDS: MULTIVITAMINS THERAPEUTIC TAB PO SCH (09:31)
[2018-05-27] MEDS: POLYETHYLENE GLYCOL 17 GM PACKET PO SCH (09:31)
[2018-05-27] MEDS: CYANOCOBALAMIN 500 MCG TAB PO SCH (09:31)
[2018-05-27] MEDS: ENOXAPARIN 40 MG/0.4 ML SYG SC SCH (09:35)
[2018-05-27] MEDS: FLUTICASONE 0.05% 16 GM NAS SPRAY NASAL SCH (09:37)
[2018-05-27] MEDS: CHLORDIAZEPOXIDE 25 MG CAP PO SCH (09:37)
[2018-05-27] MEDS: TIOTROPIUM 18 MCG CAPSULE INHA DEV INH SCH (09:37)
[2018-05-27] MEDS: HYDROCODONE/APAP (5/325) TAB PO PRN (09:46)
--- NOTE | 2018-05-27 11:33 | PN ---
Date/Time of Note Date/Time of Note DATE: 05/27/18 TIME: 11:18 Assessment/Plan VTE Prophylaxis Risk score (from Nsg)>0 risk: 5 SCD applied (from Ns): No SCD contraindicated: other Pharmacological prophylaxis: LMWH Lines/Catheters IV Catheter Type (from Nrs): Peripheral IV Urinary Cath still in place: No Assessment/Plan Hospital Course SUBJECTIVE: LLE pain well controlled. OBJECTIVE: Physical Exam General: Adequately build 63 year-old male lying in bed in no apparent distress. HEENT: Normocephalic. Surgical scar the scalp in the left occipitoparietal area. Eyes: Anicteric sclerae, conjunctivae clear. ENT: Nasal septum midline, oral mucosa moist. Neck supple, no JVD noticed. Respiratory: Bilaterally diminished breath sounds. No use of accessory muscles of respiration. No adventitious breath sounds. Cardiovascular: S1, S2 heard. Regular rate and rhythm. Abdomen: Soft, nontender, and nondistended. Bowel sounds positive in all 4 quadrants. Genitourinary: Deferred. Extremities: No cyanosis, no clubbing. Peripheral pulses palpable. Left lower extremity brace in place. Minimal pedal edema on the left. Neurologic: Cranial nerves II through XII grossly intact. The patient is awake, alert, and oriented. Skin: Normal skin turgor. No skin rashes. Labs & Vitals per chart ASSESSMENT & PLAN 63-year-old male with comorbidities including COPD, hypertension, dyslipidemia, and anxiety disorder with a ground-level fall with impact to the left lower extremity and imaging studies showing comminuted fracture of the left proximal tibia and mildly impacted fracture of the left proximal fibula, who was admitted to inpatient setting for further treatment and evaluation. 1. Syncope. -Etiology unclear. -2D echocardiogram showing preserved LVEF. -Continue telemetry monitoring. -Ruled out for any underlying ACS. -Carotid Doppler study showing moderate stenosis (50 - 69%) of the right internal carotid artery. -Neck CTA showing focal 50 - 69% stenosis proximal right ICA due to calcified plaque; focal 50% stenosis proximal left ICA due to calcified plaque. -Brain CT scan negative for any acute findings. -Cardiology following. 2. Comminuted fracture of the left proximal tibia and mildly impacted fracture of the left proximal fibula. -Continue bedrest. -Continue pain control. -Continue prophylactic anticoagulation. -S/P manipulative reduction of the proximal tibial shaft fracture with extension into the medial tibial plateau followed by immobilization of the left lower extremity in a long leg brace on 05/26/2018. -Nonweightbearing on the left lower extremity. 3. Carotid artery stenosis. -Neck CTA showing focal 50 - 69% stenosis proximal right ICA due to calcified plaque; focal 50% stenosis proximal left ICA due to calcified plaque. -Vascular Surgery consult obtained. -Hold initiation of antiplatelet(ASA) therapy in anticipation for any surgical intervention. 4. Hypertension. -Continue BBs. 5. Dyslipidemia. -Low-cholesterol diet -Fasting lipid panel satisfactory. 6. COPD. -Continue maintenance inhalers. -Continue PRN LULA. 7. Anxiety disorder. -Continue BuSpar. 8. Alcohol dependence. -Daily beer drinker. -Continue Librium taper to prevent any DTs. -IV benzodiazepines for any active DTs. -Daily multivitamins. 9. Hyponatremia. -Etiology unclear. -Hypotonic. -Probably secondary to alcoholism. 10. Leukocytosis. -Etiology unclear. -Probably reactive in origin. -The patient remains afebrile. 11. Fluids, electrolytes, and nutrition. -Low-cholesterol diet. 12. DVT prophylaxis. -Subcutaneous Lovenox. 13. Plan. -Continue pain control. -Continue nonweightbearing of the left lower extremity. -Obtain Vascular Surgery consult for evaluation of carotid artery disease. Plan of care was explained to the patient and updated the patient's daughter Madyson @ [phone]. The patient was seen in collaboration with Dr. Mcintosh. Result Diagram: 05/27/18 0449 05/27/18 0449 Results 24hrs Laboratory Tests Test 05/27/18 04:49 White Blood Count 14.7 H Red Blood Count 3.15 L Hemoglobin 10.7 L Hematocrit 30.9 L Mean Corpuscular Volume 98.1 Mean Corpuscular Hemoglobin 34.0 H Mean Corpuscular Hemoglobin Concent 34.6 Red Cell Distribution Width 12.9 Platelet Count 151 Mean Platelet Volume 9.3 Immature Granulocytes % 0.300 Neutrophils % 41.7 Lymphocytes % 49.0 Monocytes % 7.6 Eosinophils % 1.1 Basophils % 0.3 Nucleated Red Blood Cells % 0.0 Immature Granulocytes # 0.050 H Neutrophils # 6.1 Lymphocytes # 7.2 H Monocytes # 1.1 H Eosinophils # 0.2 Basophils # 0.0 Nucleated Red Blood Cells # 0.0 Sodium Level 130 L Potassium Level 4.6 Chloride Level 94 L Carbon Dioxide Level 30 Anion Gap 6 Blood Urea Nitrogen 17 Creatinine 0.71 Est Glomerular Filtrat Rate mL/min > 60 Glucose Level 107 Calcium Level 8.4 Phosphorus Level 3.9 Magnesium Level 1.9 Exam/Review of Systems Vital Signs Vitals Vital Signs Date Temp Pulse Resp B/P (MAP) Pulse Ox O2 O2 Flow FiO2 Time Delivery Rate 05/27/18 101 08:38 05/27/18 93 Nasal 3.0 08:25 Cannula 05/27/18 98.0 133/72 07:50 (92) Intake and Output 05/26/18 05/26/18 05/27/18 1515:00 23:00 07:00 IntakeIntake Total 800 ml 330 ml OutputOutput Total 650 ml 500 ml BalanceBalance 150 ml -170 ml Medications Medications Current Medications IV Flush (NS 3 ml) 3 ml PER PROTOCOL IV ; Start 05/25/18 at 16:00 Ondansetron HCl (Zofran Inj) 4 mg Q6H PRN IV NAUSEA AND/OR VOMITING; Start 05/25/18 at 16:00 Acetaminophen (Tylenol Tab) 650 mg Q6H PRN PO PAIN LEVEL 1-3 OR FEVER; Start 05/25/18 at 16:00 Acetaminophen/ Hydrocodone Bitart ([place] (5/325)) 1 tab Q6H PRN PO PAIN LEVEL 4-6 Last administered on 05/27/18at 09:46; Admin Dose 1 TAB; Start 05/25/18 at 16:00 Enoxaparin Sodium (Lovenox) 40 mg DAILY SC Last administered on 05/27/18at 09:35; Admin Dose 40 MG; Start 05/26/18 at 09:00 Tiotropium [place] (Spiriva) 1 inh DAILY INH Last administered on 05/27/18at 09:37; Admin Dose 1 INH; Start 05/26/18 at 09:00 Albuterol (Proventil 0.083% (Neb)) 2.5 mg Q4H RESP THERAPY PRN HHN SHORTNESS OF BREATH; Start 05/25/18 at 16:30 Atorvastatin Calcium (Lipitor) 40 mg QHS PO Last administered on 05/26/18at 20:28; Admin Dose 40 MG; Start 05/25/18 at 21:00 Buspirone HCl (Buspar) 10 mg TID PO Last administered on 05/27/18 09:30; Admin Dose 10 MG; Start 05/25/18 at 21:00 Cholecalciferol (Vitamin D) 1,000 unit DAILY PO Last administered on 05/27/18 09:30; Admin Dose 1,000 UNIT; Start 05/26/18 at 09:00 Cyanocobalamin (Vitamin B12) 1,000 mcg DAILY PO Last administered on 05/27/18 09:31; Admin Dose 1,000 MCG; Start 05/26/18 at 09:00 Docusate Sodium (Colace) 250 mg DAILY PO Last administered on 05/27/18 09:31; Admin Dose 250 MG; Start 05/26/18 at 09:00 Fluoxetine HCl (Prozac) 10 mg DAILY PO Last administered on 05/27/18 09:30; Admin Dose 10 MG; Start 05/26/18 at 09:00 Fluticasone Propionate (Flonase 0.05% Nasal) 1 spray DAILY NASAL Last admin istered on 05/27/18 09:37; Admin Dose 1 SPRAY; Start 05/26/18 at 09:00 Polyethylene Glycol (Miralax) 17 gm DAILY PO Last administered on 05/27/18 09:31; Admin Dose 17 GM; Start 05/26/18 at 09:00 Trazodone HCl (Desyrel) 100 mg QHS PO Last administered on 05/26/18 20:29; Admin Dose 100 MG; Start 05/25/18 at 21:00 Arformoterol Tartrate (Brovana (Neb)) 2 ml BID RESP THERAPY NEB Last admin istered on 05/27/18 08:27; Admin Dose 2 ML; Start 05/25/18 at 20:00 Chlordiazepoxide (Librium) 25 mg TID PO Last administered on 05/27/18 09:37; Admin Dose 25 MG; Start 05/25/18 at 21:00 Lorazepam (Ativan) 1 mg Q2H PRN IV Anxiety; Start 05/25/18 at 17:00 Multivitamins Therapeutic (Theragran) 1 tab DAILY PO Last administered on 05/27/18 09:31; Admin Dose 1 TAB; Start 12/29/18 at 09:00 Morphine Sulfate (morphine SULFATE (PF)) 2 mg Q4H PRN IV PAIN LEVEL 7-10 Last administered on 05/26/18at 20:28; Admin Dose 2 MG; Start 05/25/18 at 22:00 Metoprolol Tartrate (Lopressor) 25 mg BID PO Last administered on 05/27/18at 09:30; Admin Dose 25 MG; Start 05/26/18 at 21:00 DU HOWARD NP May 27, 2018 11:28
[2018-05-27] MEDS: morphine SULFATE/PF (2 MG/2 ML) SYG IV PRN (12:25)
--- NOTE | 2018-05-27 13:27 | CONS ---
Date/Time of Note Date/Time of Note DATE: 05/27/18 TIME: 13:25 Assessment/Plan Assessment/Plan Hospital Course IMPRESSION: 1. Syncope, rule out cardiac etiology, rule out cardiac arrhythmia. -neg trop x 3 2. Abnormal electrocardiogram, assess for acute coronary syndrome. 3. Dyslipidemia without medications. 4. Left tibia fracture. 5. History of chronic obstructive pulmonary disease. 6. Possible anxiety disorder. 7. Hyponatremia-slowly improving 8. Leukocytosis. REcc: -Tele -Continue BB -would lighten sedation as patient very somnolent -pain control -continue statin -s/p orthopaedic surgical procedure Result Diagram: 05/27/18 0449 05/27/18448 Results 24hrs Laboratory Tests Test 05/27/18 04:49 White Blood Count 14.7 H Red Blood Count 3.15 L Hemoglobin 10.7 L Hematocrit 30.9 L Mean Corpuscular Volume 98.1 Mean Corpuscular Hemoglobin 34.0 H Mean Corpuscular Hemoglobin Concent 34.6 Red Cell Distribution Width 12.9 Platelet Count 151 Mean Platelet Volume 9.3 Immature Granulocytes % 0.300 Neutrophils % 41.7 Lymphocytes % 49.0 Monocytes % 7.6 Eosinophils % 1.1 Basophils % 0.3 Nucleated Red Blood Cells % 0.0 Immature Granulocytes # 0.050 H Neutrophils # 6.1 Lymphocytes # 7.2 H Monocytes # 1.1 H Eosinophils # 0.2 Basophils # 0.0 Nucleated Red Blood Cells # 0.0 Sodium Level 130 L Potassium Level 4.6 Chloride Level 94 L Carbon Dioxide Level 30 Anion Gap 6 Blood Urea Nitrogen 17 Creatinine 0.71 Est Glomerular Filtrat Rate mL/min > 60 Glucose Level 107 Calcium Level 8.4 Phosphorus Level 3.9 Magnesium Level 1.9 Consultation Date/Type/Reason Admit Date/Time May 25, 2018 at 14:20 Initial Consult Date 05/25/18 Type of Consult cardiology Reason for Consultation syncope Requesting Provider: DU HOWARD WET CROWN BLOCKING OPERATOR Exam/Review of Systems Vital Signs Vitals Vital Signs Date Temp Pulse Resp B/P (MAP) Pulse Ox O2 O2 Flow FiO2 Time Delivery Rate 05/27/18 98.6 69 16 114/55 95 11:19 (74) 05/27/18 Nasal 3.0 08:25 Cannula Intake and Output 05/26/18 05/26/18 05/27/18 1414:59 22:59 06:59 IntakeIntake Total 800 ml 330 ml OutputOutput Total 650 ml 500 ml BalanceBalance 150 ml -170 ml Exam Review of Systems: CONSTITUTIONAL: No fevers, chills. PULMONARY: No sob CARDIOVASCULAR: No chest pain/palpitations GASTROINTESTINAL: No nausea/vomiting. GENITOURINARY: No hematuria/dysuria. MUSCULOSKELETAL: No myagias/arthalgias. PSYCHIATRIC: The patient denies depression. NEUROLOGIC: No weakness Constitutional: alert Psych: no complaints Head: normocephalic ENMT: mucosa pink and moist Neck: supple, jvd (9 cm water) Respiratory: clear to auscultation Cardiovascular: regular rate and rhythm Gastrointestinal: soft, non-tender Musculoskeletal: muscle tone (normal) Extremities: edema (none) Neurological: other (No focal deficits) Medications Medications Current Medications IV Flush (NS 3 ml) 3 ml PER PROTOCOL IV ; Start 05/25/18 at 16:00 Ondansetron HCl (Zofran Inj) 4 mg Q6H PRN IV NAUSEA AND/OR VOMITING; Start 05/25/18 at 16:00 Acetaminophen (Tylenol Tab) 650 mg Q6H PRN PO PAIN LEVEL 1-3 OR FEVER; Start 05/25/18 at 16:00 Acetaminophen/ Hydrocodone Bitart ([place] (5/325)) 1 tab Q6H PRN PO PAIN LEVEL 4-6 Last administered on 05/27/18at 09:46; Admin Dose 1 TAB; Start 05/25/18 at 16:00 Enoxaparin Sodium (Lovenox) 40 mg DAILY SC Last administered on 05/27/18at 09:35; Admin Dose 40 MG; Start 05/26/18 at 09:00 Tiotropium [place] (Spiriva) 1 inh DAILY INH Last administered on 05/27/18at 09:37; Admin Dose 1 INH; Start 05/26/18 at 09:00 Albuterol (Proventil 0.083% (Neb)) 2.5 mg Q4H RESP THERAPY PRN HHN SHORTNESS OF BREATH; Start 05/25/18 at 16:30 Atorvastatin Calcium (Lipitor) 40 mg QHS PO Last administered on 05/26/18at 20:28; Admin Dose 40 MG; Start 05/25/18 at 21:00 Buspirone HCl (Buspar) 10 mg TID PO Last administered on 05/27/18 09:30; A dmin Dose 10 MG; Start 05/25/18 at 21:00 Cholecalciferol (Vitamin D) 1,000 unit DAILY PO Last administered on 05/27/18 09:30; Admin Dose 1,000 UNIT; Start 05/26/18 at 09:00 Cyanocobalamin (Vitamin B12) 1,000 mcg DAILY PO Last administered on 05/27/18 09:31; Admin Dose 1,000 MCG; Start 05/26/18 at 09:00 Docusate Sodium (Colace) 250 mg DAILY PO Last administered on 05/27/18 09:31; Admin Dose 250 MG; Start 05/26/18 at 09:00 Fluoxetine HCl (Prozac) 10 mg DAILY PO Last administered on 05/27/18 09:30; Admin Dose 10 MG; Start 05/26/18 at 09:00 Fluticasone Propionate (Flonase 0.05% Nasal) 1 spray DAILY NASAL Last administered on 05/27/18 09:37; Admin Dose 1 SPRAY; Start 05/26/18 at 09:00 Polyethylene Glycol (Miralax) 17 gm DAILY PO Last administered on 05/27/18 09:31; Admin Dose 17 GM; Start 05/26/18 at 09:00 Trazodone HCl (Desyrel) 100 mg QHS PO Last administered on 05/26/18 20:29; Admin Dose 100 MG; Start 05/25/18 at 21:00 Arformoterol Tartrate (Brovana (Neb)) 2 ml BID RESP THERAPY NEB Last administered on 05/27/18 08:27; Admin Dose 2 ML; Start 05/25/18 at 20:00 Lorazepam (Ativan) 1 mg Q2H PRN IV Anxiety; Start 05/25/18 at 17:00 Multivitamins Therapeutic (Theragran) 1 tab DAILY PO Last administered on 05/27/18 09:31; Admin Dose 1 TAB; Start 05/26/18 at 09:00 Morphine Sulfate (morphine SULFATE (PF)) 2 mg Q4H PRN IV PAIN LEVEL 7-10 Last administered on 05/27/18 12:25; Admin Dose 2 MG; Start 05/25/18 at 22:00 Metoprolol Tartrate (Lopressor) 25 mg BID PO Last administered on 05/27/18at 09:30; Admin Dose 25 MG; Start 05/26/18 at 21:00 Chlordiazepoxide (Librium) 10 mg TID PO ; Start 05/27/18 at 13:00 IVANA LANGSTON May 27, 2018 13:27
[2018-05-27] MEDS: CHLORDIAZEPOXIDE 5 MG CAP PO SCH ×2 (13:32→20:44)
--- NOTE | 2018-05-27 18:21 | NUR ---
EOSS: Patient lying comfortably in bed on NC 2L, AO4. No incidents occurred during shift. VSS. MCKENZIE.
--- NOTE | 2018-05-27 20:24 | CONS ---
DATE OF ADMISSION: 05/25/2018 DATE OF CONSULTATION: REASON FOR CONSULTATION: Evaluation of a carotid stenosis. HISTORY OF PRESENT ILLNESS: This is a 63-year-old male with a history of COPD, hypertension, and hyp erlipidemia, admitted because of syncope. Part of his workup included a carotid ultrasound, which rojas s showed a 50% to 69% stenosis in the right internal carotid artery. This was followed up with a CT angiogram of the neck, which has showed 50% to 69% stenosis of the right internal carotid artery and focal 50% stenosis of the left internal carotid artery. The patient is currently recovering from his syncopal episode. PAST MEDICAL HISTORY: Hypertension, hyperlipidemia, COPD and dyslipidemia. PAST SURGICAL HISTORY: None. ALLERGIES: NONE. SOCIAL HISTORY: Positive for daily alcohol use. MEDICATIONS: List reviewed. PHYSICAL EXAMINATION: GENERAL: The patient is awake, responds appropriately. VITAL SIGNS: Blood pressure is 119/69, pulse is 72, respiration is 18, saturation is 94% on 3 liters of oxygen. CARDIOVASCULAR: Regular rate and rhythm. LUNGS: Clear. ABDOMEN: Soft. EXTREMITIES: Warm. LABORATORY VALUES: Significant for hemoglobin of 10.7, white count 14.7 and platelet count 151. Nor mal coagulation factors and a creatinine of 0.71. IMPRESSION: 1. Syncope. 2. Right carotid stenosis. RECOMMENDATIONS: The patient will need a neurological evaluation. If no other cause of syncope is n oted, the patient will need right carotid endarterectomy. This should be done after the patient has recovered from orthopedic procedure that was just done with fracture of the tibia. This was discusse d with the patient. We will discuss with the referring physicians. Dictated By: COLLIN EGAN/KAROLINE Conf#: [id number] DID#: [id number]
[2018-05-27] MEDS: ATORVASTATIN 40 MG TAB PO SCH (20:44)
[2018-05-27] MEDS: traZODone 100 MG TAB PO SCH (20:44)
--- NOTE | 2018-05-27 23:21 | NUR ---
Spoke with pt's sister Madyson. Madyson states that she would like to be called by MD to get results of Brain CT.
[2018-05-28] VITALS (11 sets, daily range): BP systolic 101–135; BP diastolic 55–66; PULSE 72–94; RESP 16–18
--- NOTE | 2018-05-28 07:52 | NUR ---
EOSS: Pt in room resting comfortably. Pt has no complaints at this time. Bedside shift report given to ARLENE Child.
[2018-05-28] MEDS: BUSPIRONE 10 MG TAB PO SCH ×3 (08:07→20:45)
[2018-05-28] MEDS: CYANOCOBALAMIN 500 MCG TAB PO SCH (08:07)
[2018-05-28] MEDS: DOCUSATE SODIUM 250 MG CAP PO SCH (08:08)
[2018-05-28] MEDS: CHOLECALCIFEROL 1,000 UNIT TAB PO SCH (08:08)
[2018-05-28] MEDS: FLUOXETINE 10 MG CAP PO SCH (08:08)
[2018-05-28] MEDS: CHLORDIAZEPOXIDE 5 MG CAP PO SCH ×3 (08:08→20:19)
[2018-05-28] MEDS: FLUTICASONE 0.05% 16 GM NAS SPRAY NASAL SCH (08:08)
[2018-05-28] MEDS: METOPROLOL 25 MG TAB PO SCH ×2 (08:08→20:45)
[2018-05-28] MEDS: MULTIVITAMINS THERAPEUTIC TAB PO SCH (08:08)
[2018-05-28] MEDS: TIOTROPIUM 18 MCG CAPSULE INHA DEV INH SCH (08:09)
[2018-05-28] MEDS: POLYETHYLENE GLYCOL 17 GM PACKET PO SCH (08:09)
[2018-05-28] MEDS: ENOXAPARIN 40 MG/0.4 ML SYG SC SCH (08:25)
[2018-05-28] MEDS: ARFORMOTEROL TARTRATE 15MCG/2 ML AMP NEB SCH ×2 (08:41→20:26)
--- NOTE | 2018-05-28 10:37 | PN ---
Date/Time of Note Date/Time of Note DATE: 05/28/18 TIME: 10:36 Assessment/Plan Lines/Catheters IV Catheter Type (from Nrsg): Peripheral IV Teague in Place (from Nrsg): No Assessment/Plan Assessment/Plan MPRESSION: 1. Syncope. 2. Right carotid stenosis. RECOMMENDATIONS: The patient will need a neurological evaluation. If no other cause of syncope is noted, the patient will need right carotid endarterectomy. This should be done after the patient has recovered from orthopedic procedure that was just done with fracture of the tibia. This was discussed with the patient. We will discuss with the referring physicians. Subjective 24 Hr Interval Summary Constitutional: improved Pain Control: mild Exam/Review of Systems Vital Signs Vitals Vital Signs Date Temp Pulse Resp B/P (MAP) Pulse Ox O2 O2 Flow FiO2 Time Delivery Rate 05/28/18 3.0 08:43 05/28/18 83 20 95 Nasal 08:42 Cannula 05/28/18 98.0 135/66 07:18 (89) Intake and Output 05/27/18 05/27/18 05/28/18 1515:00 23:00 07:00 IntakeIntake Total 520 ml OutputOutput Total 500 ml BalanceBalance 20 ml Exam Eyes: nl conjunctiva, EOMI, nl lids, nl sclera ENMT: nl external ears & nose, nl lips & teeth, nl nasal mucosa & septum, mucosa pink and moist Neck: supple, non-tender Respiratory: clear to auscultation, normal air movement Cardiovascular: regular rate and rhythm, nl pulses Musculoskeletal: nl extremities to inspection, nl gait and stance Results Result Diagram: 05/28/18 0446 05/28/18 044 COLLIN MARTINS MD May 28, 2018 10:37
[2018-05-28] MEDS: morphine SULFATE/PF (2 MG/2 ML) SYG IV PRN ×2 (13:13→20:45)
--- NOTE | 2018-05-28 14:10 | CONS ---
Date/Time of Note Date/Time of Note DATE: 05/28/18 TIME: 14:08 Assessment/Plan Assessment/Plan Hospital Course IMPRESSION: 1. Syncope, rule out cardiac etiology, rule out cardiac arrhythmia. -neg trop x 3 2. Abnormal electrocardiogram, assess for acute coronary syndrome. 3. Dyslipidemia without medications. 4. Left tibia fracture. 5. History of chronic obstructive pulmonary disease. 6. Possible anxiety disorder. 7. Hyponatremia-slowly improving 8. Leukocytosis. 9. carotid stenosis REcc: -Tele -Continue BB -pain control -continue statin -s/p vascvular surgery consult given carotid stenosis -s/p orthopaedic surgical procedure Result Diagram: 05/28/18 0446 05/28/18 0446 Results 24hrs Laboratory Tests Test 05/28/18 04:46 White Blood Count 12.6 H Red Blood Count 3.12 L Hemoglobin 10.5 L Hematocrit 30.3 L Mean Corpuscular Volume 97.1 Mean Corpuscular Hemoglobin 33.7 H Mean Corpuscular Hemoglobin Concent 34.7 Red Cell Distribution Width 13.0 Platelet Count 158 Mean Platelet Volume 9.3 Immature Granulocytes % 0.400 Neutrophils % 36.4 L Lymphocytes % 52.1 H Monocytes % 8.4 Eosinophils % 2.4 Basophils % 0.3 Nucleated Red Blood Cells % 0.0 Immature Granulocytes # 0.050 H Neutrophils # 4.6 Lymphocytes # 6.6 H Monocytes # 1.1 H Eosinophils # 0.3 Basophils # 0.0 Nucleated Red Blood Cells # 0.0 Sodium Level 134 L Potassium Level 4.9 Chloride Level 95 L Carbon Dioxide Level 32 H Anion Gap 7 Blood Urea Nitrogen 19 Creatinine 0.70 Est Glomerular Filtrat Rate mL/min > 60 Glucose Level 99 Calcium Level 8.5 Phosphorus Level 4.0 Magnesium Level 2.1 Consultation Date/Type/Reason Admit Date/Time May 25, 2018 at 14:20 Initial Consult Date 05/25/18 Type of Consult cardiology Reason for Consultation syncope Requesting Provider: DU HOWARD WOOD MODEL BUILDER Exam/Review of Systems Vital Signs Vitals Vital Signs Date Temp Pulse Resp B/P (MAP) Pulse Ox O2 O2 Flow FiO2 Time Delivery Rate 05/28/18 76 12:00 05/28/18 98.4 16 122/58 95 11:23 (79) 05/28/18 3.0 08:43 05/28/18 Nasal 08:42 Cannula Intake and Output 05/27/18 05/27/18 05/28/18 1515:00 23:00 07:00 IntakeIntake Total 520 ml OutputOutput Total 500 ml BalanceBalance 20 ml Exam Review of Systems: CONSTITUTIONAL: No fevers, chills. PULMONARY: No sob CARDIOVASCULAR: No chest pain/palpitations GASTROINTESTINAL: No nausea/vomiting. GENITOURINARY: No hematuria/dysuria. MUSCULOSKELETAL: No myagias/arthalgias. PSYCHIATRIC: The patient denies depression. NEUROLOGIC: No weakness Constitutional: alert, oriented Psych: no complaints Head: normocephalic ENMT: mucosa pink and moist Neck: supple, jvd (9 cm water) Respiratory: clear to auscultation Cardiovascular: regular rate and rhythm Gastrointestinal: soft, non-tender Musculoskeletal: muscle tone (normal) Extremities: edema (none) Neurological: other (No focal deficits) Medications Medications Current Medications IV Flush (NS 3 ml) 3 ml PER PROTOCOL IV ; Start 05/25/18 at 16:00 Ondansetron HCl (Zofran Inj) 4 mg Q6H PRN IV NAUSEA AND/OR VOMITING; Start 05/25/18 at 16:00 Acetaminophen (Tylenol Tab) 650 mg Q6H PRN PO PAIN LEVEL 1-3 OR FEVER; Start 05/25/18 at 16:00 Acetaminophen/ Hydrocodone Bitart ([place] (5/325)) 1 tab Q6H PRN PO PAIN LEVEL 4-6 Last administered on 05/27/18at 09:46; Admin Dose 1 TAB; Start 05/25/18 at 16:00 Enoxaparin Sodium (Lovenox) 40 mg DAILY SC Last administered on 05/28/18at 08:25; Admin Dose 40 MG; Start 05/26/18 at 09:00 Tiotropium [place] (Spiriva) 1 inh DAILY INH Last administered on 05/28/18at 08 :09; Admin Dose 1 INH; Start 05/26/18 at 09:00 Albuterol (Proventil 0.083% (Neb)) 2.5 mg Q4H RESP THERAPY PRN HHN SHORTNESS OF BREATH; Start 05/25/18 at 16:30 Atorvastatin Calcium (Lipitor) 40 mg QHS PO Last administered on 05/27/18at 20:44; Admin Dose 40 MG; Start 05/25/18 at 21:00 Buspirone HCl (Buspar) 10 mg TID PO Last administered on 05/28/18 13:13; Admin Dose 10 MG; Start 05/25/18 at 21:00 Cholecalciferol (Vitamin D) 1,000 unit DAILY PO Last administered on 05/28/18 08:08; Admin Dose 1,000 UNIT; Start 05/26/18 at 09:00 Cyanocobalamin (Vitamin B12) 1,000 mcg DAILY PO Last administered on 05/28/18 08:07; Admin Dose 1,000 MCG; Start 05/26/18 at 09:00 Docusate Sodium (Colace) 250 mg DAILY PO Last administered on 05/28/18 08:08; Admin Dose 250 MG; Start 05/26/18 at 09:00 Fluoxetine HCl (Prozac) 10 mg DAILY PO Last administered on 05/28/18 08:08; Admin Dose 10 MG; Start 05/26/18 at 09:00 Fluticasone Propionate (Flonase 0.05% Nasal) 1 spray DAILY NASAL Last adm inistered on 05/28/18 08:08; Admin Dose 1 SPRAY; Start 05/26/18 at 09:00 Polyethylene Glycol (Miralax) 17 gm DAILY PO Last administered on 05/28/18 08:09; Admin Dose 17 GM; Start 05/26/18 at 09:00 Trazodone HCl (Desyrel) 100 mg QHS PO Last administered on 05/27/18 20:44; Admin Dose 100 MG; Start 05/25/18 at 21:00 Arformoterol Tartrate (Brovana (Neb)) 2 ml BID RESP THERAPY NEB Last adm inistered on 05/28/18 08:41; Admin Dose 2 ML; Start 05/25/18 at 20:00 Lorazepam (Ativan) 1 mg Q2H PRN IV Anxiety; Start 05/25/18 at 17:00 Multivitamins Therapeutic (Theragran) 1 tab DAILY PO Last administered on 05/28/18 08:08; Admin Dose 1 TAB; Start 05/26/18 at 09:00 Morphine Sulfate (morphine SULFATE (PF)) 2 mg Q4H PRN IV PAIN LEVEL 7-10 Last administered on 05/28/18 13:13; Admin Dose 2 MG; Start 05/25/18 at 22:00 Metoprolol Tartrate (Lopressor) 25 mg BID PO Last administered on 05/28/18at 08:08; Admin Dose 25 MG; Start 05/26/18 at 21:00 Chlordiazepoxide (Librium) 10 mg TID PO Last administered on 05/28/18at 13:13; Admin Dose 10 MG; Start 05/27/18 at 13:00 IVANA LANGSTON May 28, 2018 14:10
--- NOTE | 2018-05-28 15:45 | PN ---
Date/Time of Note Date/Time of Note DATE: 05/28/18 TIME: 15:38 Assessment/Plan VTE Prophylaxis Risk score (from Ns)>0 risk: 12 SCD applied (from [facility] [place]): No SCD contraindicated: low risk/ambulating Pharmacological prophylaxis: NA/contraindicated Pharm contraindication: low risk/ambulating Lines/Catheters IV Catheter Type (from [facility] Peripheral IV Urinary Cath still in place: No Assessment/Plan Hospital Course Assessment and plan 1. Syncope ukn etio, likely due to orthostatic changes/hypovolemia. unable to do orthostatics, stable observed 2. Carotid stenosis bilateral, possibly symptomatic, stable consult neurology. Surgical eval appreciated. 3. Lt Tib- Fib fracture sp reduction/ immobilization, nwb, stable consider dc to snf 4. Past alcoholism versus ongoing? 5. Nonadherence 6. Failure to thrive 7. Anemia rule out occult bleed 8. History of lacunar infarcts? Obtain MRI 9. Chronic COPD 10. Past tobacco 11. Hypertension? 12. Dyslipidemia 13. Abn EKG, however echo w/o any wma's Subjective: No history of tongue bite or incontinence. Recurrent falls possibly syncope occurring without any known aggravating or relieving factors. Sometimes days sometimes night sometimes outside his house. No previous history of injuries prior to this arrival. He drinks 4 beers a day. He is awake alert oriented to year month and eyes any chest pain palpitations loss of focal deficits speech or vision prior to these events. Denies any history of strokes. Objective: Vital signs stable Physical exam No pallor adenopathy droop or carotid bruits appreciated Heart regular no murmur rub gallop Clear Benign No edema Neuro: Essentially symmet bilat Result Diagram: 05/28/18 0446 05/28/18 0446 Results 24hrs Laboratory Tests Test 05/28/18 04:46 White Blood Count 12.6 H Red Blood Count 3.12 L Hemoglobin 10.5 L Hematocrit 30.3 L Mean Corpuscular Volume 97.1 Mean Corpuscular Hemoglobin 33.7 H Mean Corpuscular Hemoglobin Concent 34.7 Red Cell Distribution Width 13.0 Platelet Count 158 Mean Platelet Volume 9.3 Immature Granulocytes % 0.400 Neutrophils % 36.4 L Lymphocytes % 52.1 H Monocytes % 8.4 Eosinophils % 2.4 Basophils % 0.3 Nucleated Red Blood Cells % 0.0 Immature Granulocytes # 0.050 H Neutrophils # 4.6 Lymphocytes # 6.6 H Monocytes # 1.1 H Eosinophils # 0.3 Basophils # 0.0 Nucleated Red Blood Cells # 0.0 Sodium Level 134 L Potassium Level 4.9 Chloride Level 95 L Carbon Dioxide Level 32 H Anion Gap 7 Blood Urea Nitrogen 19 Creatinine 0.70 Est Glomerular Filtrat Rate mL/min > 60 Glucose Level 99 Calcium Level 8.5 Phosphorus Level 4.0 Magnesium Level 2.1 Exam/Review of Systems Vital Signs Vitals Vital Signs Date Temp Pulse Resp B/P (MAP) Pulse Ox O2 O2 Flow FiO2 Time Delivery Rate 05/28/18 76 12:00 05/28/18 98.4 16 122/58 95 11:23 (79) 05/28/18 3.0 08:43 05/28/18 Nasal 08:42 Cannula Intake and Output 05/27/18 05/27/18 05/28/18 1414:59 22:59 06:59 IntakeIntake Total 520 ml OutputOutput Total 500 ml BalanceBalance 20 ml Medications Medications Current Medications IV Flush (NS 3 ml) 3 ml PER PROTOCOL IV ; Start 05/25/18 at 16:00 Ondansetron HCl (Zofran Inj) 4 mg Q6H PRN IV NAUSEA AND/OR VOMITING; Start 05/25/18 at 16:00 Acetaminophen (Tylenol Tab) 650 mg Q6H PRN PO PAIN LEVEL 1-3 OR FEVER; Start 05/25/18 at 16:00 Acetaminophen/ Hydrocodone Bitart ([place] (5/325)) 1 tab Q6H PRN PO PAIN LEVEL 4-6 Last administered on 05/27/18at 09:46; Admin Dose 1 TAB; Start 05/25/18 at 16:00 Enoxaparin Sodium (Lovenox) 40 mg DAILY SC Last administered on 05/28/18at 08:25; Admin Dose 40 MG; Start 05/26/18 at 09:00 Tiotropium [place] (Spiriva) 1 inh DAILY INH Last administered on 05/28/18at 08:09; Admin Dose 1 INH; Start 05/26/18 at 09:00 Albuterol (Proventil 0.083% (Neb)) 2.5 mg Q4H RESP THERAPY PRN HHN SHORTNESS OF BREATH; Start 05/25/18 at 16:30 Atorvastatin Calcium (Lipitor) 40 mg QHS PO Last administered on 05/27/18 20:44; Admin Dose 40 MG; Start 05/25/18 at 21:00 Buspirone HCl (Buspar) 10 mg TID PO Last administered on 05/28/18 13:13; Admin Dose 10 MG; Start 05/25/18 at 21:00 Cholecalciferol (Vitamin D) 1,000 unit DAILY PO Last administered on 05/28/18 08:08; Admin Dose 1,000 UNIT; Start 05/26/18 at 09:00 Cyanocobalamin (Vitamin B12) 1,000 mcg DAILY PO Last administered on 05/28/18 08:07; Admin Dose 1,000 MCG; Start 05/26/18 at 09:00 Docusate Sodium (Colace) 250 mg DAILY PO Last administered on 05/28/18 08:08; Admin Dose 250 MG; Start 05/26/18 at 09:00 Fluoxetine HCl (Prozac) 10 mg DAILY PO Last administered on 05/28/18 08:08; Admin Dose 10 MG; Start 05/26/18 at 09:00 Fluticasone Propionate (Flonase 0.05% Nasal) 1 spray DAILY NASAL Last administered on 05/28/18 08:08; Admin Dose 1 SPRAY; Start 05/26/18 at 09:00 Polyethylene Glycol (Miralax) 17 gm DAILY PO Last administered on 05/28/18 08:09; Admin Dose 17 GM; Start 05/26/18 at 09:00 Trazodone HCl (Desyrel) 100 mg QHS PO Last administered on 05/27/18 20:44; Admin Dose 100 MG; Start 05/25/18 at 21:00 Arformoterol Tartrate (Brovana (Neb)) 2 ml BID RESP THERAPY NEB Last administered on 05/28/18 08:41; Admin Dose 2 ML; Start 05/25/18 at 20:00 Lorazepam (Ativan) 1 mg Q2H PRN IV Anxiety; Start 05/25/18 at 17:00 Multivitamins Therapeutic (Theragran) 1 tab DAILY PO Last administered on 05/28/18 08:08; Admin Dose 1 TAB; Start 05/26/18 at 09:00 Morphine Sulfate (morphine SULFATE (PF)) 2 mg Q4H PRN IV PAIN LEVEL 7-10 Last administered on 05/28/18at 13:13; Admin Dose 2 MG; Start 05/25/18 at 22:00 Metoprolol Tartrate (Lopressor) 25 mg BID PO Last administered on 05/28/18at 08:08; Admin Dose 25 MG; Start 05/26/18 at 21:00 Chlordiazepoxide (Librium) 10 mg TID PO Last administered on 05/28/18at 13:13; Admin Dose 10 MG; Start 05/27/18 at 13:00 SURINDER NAVA MD May 28, 2018 15:44
[2018-05-28] MEDS ORDERED: ALBUTEROL HFA 8 GM INHALER INH PRN (16:00)
--- NOTE | 2018-05-28 17:51 | PN ---
DATE: 05/28/2018 Fairly comfortable with the left lower extremity in a long leg brace. Post-reduction x-rays of the l eft knee and tibia shows satisfactory alignment of the fractures. He can be treated with continuous immobilization of the left lower extremity in the already applied long leg brace. He has to be on no nweightbearing completely involving the left lower extremity for 4 to 6 weeks and the arrangement has to be made for him to keep this restrictions. If the restriction of nonweightbearing on the left lo wer extremity can be complied, he can be discharged any time from orthopedic surgical point of view. He needs to follow up orthopedic surgical care in 2 weeks including x-rays of the left knee. Dictated By: KELSEY SOL MD IK/NTS Conf#: [id number] DID#: [id number] CC: SURINDER NAVA MD; Derrick Rincon MD; IVANA LANGSTON MD;*EndCC*
--- NOTE | 2018-05-28 18:29 | NUR ---
EOSS: Pt laying in bed comfortably, a/o x 4, with left leg brace, non-pitting edema on LLE. VS stable, no acute events during shift. Pt was seen by Dr. Singh, stated may get by without surgery on his left leg as long as he wears the leg brace and does not stand on it. Pt spoke to me and stated he wants a second opinion from his MD. Will endorse plan of care to oncoming shift accordingly.
--- NOTE | 2018-05-28 19:50 | NUR ---
While attempting to obtain MRI screening. Pt states that he does not want to do screening, and does not want his MRI tonight. He states that he is willing to do it, but not tonight.
[2018-05-28] MEDS: ATORVASTATIN 40 MG TAB PO SCH (20:45)
[2018-05-29] VITALS (14 sets, daily range): BP systolic 108–139; BP diastolic 59–77; PULSE 72–150; RESP 18–20
[2018-05-29] MEDS: POLYETHYLENE GLYCOL 17 GM PACKET PO SCH (08:23)
[2018-05-29] MEDS: CHLORDIAZEPOXIDE 5 MG CAP PO SCH ×3 (08:23→21:42)
[2018-05-29] MEDS: MULTIVITAMINS THERAPEUTIC TAB PO SCH (08:23)
[2018-05-29] MEDS: DOCUSATE SODIUM 250 MG CAP PO SCH (08:23)
[2018-05-29] MEDS: CHOLECALCIFEROL 1,000 UNIT TAB PO SCH (08:23)
[2018-05-29] MEDS: BUSPIRONE 10 MG TAB PO SCH ×3 (08:23→21:42)
[2018-05-29] MEDS: FLUOXETINE 10 MG CAP PO SCH (08:23)
[2018-05-29] MEDS: METOPROLOL 25 MG TAB PO SCH ×2 (08:24→21:43)
[2018-05-29] MEDS: morphine SULFATE/PF (2 MG/2 ML) SYG IV PRN ×2 (08:24→18:34)
[2018-05-29] MEDS: TIOTROPIUM 18 MCG CAPSULE INHA DEV INH SCH (08:24)
[2018-05-29] MEDS: FLUTICASONE 0.05% 16 GM NAS SPRAY NASAL SCH (08:25)
[2018-05-29] MEDS: ENOXAPARIN 40 MG/0.4 ML SYG SC SCH (08:34)
[2018-05-29] MEDS: CYANOCOBALAMIN 500 MCG TAB PO SCH (08:34)
[2018-05-29] MEDS: ARFORMOTEROL TARTRATE 15MCG/2 ML AMP NEB SCH ×2 (09:00→19:37)
--- NOTE | 2018-05-29 12:26 | CONS ---
Assessment/Plan Assessment/Plan Hospital Course A; 63 yo M with hx of brain surgery NOS, repeated syncopal episodes who presents following a fall c/b L tib/fib fx...for which neurology is consulted. Perhaps syncope vs. seizure Stroke is less likely... CTH is without acute intracranial pathology, though is notable for old strokes. CTA N is notable for moderate BL ICA stenoses. P: MRI w/ and w/o contrast for further characterization EEG to evaluate for epileptiform activity Await orthostatics Cont ASA/Lipitor for secondary stroke prevention Other medical management and supportive care per primary Will follow clinically Result Diagram: 05/29/18 0434 05/29/18 0434 Results 24hrs Laboratory Tests Test 05/29/18 04:34 White Blood Count 12.3 H Red Blood Count 3.15 L Hemoglobin 10.6 L Hematocrit 30.7 L Mean Corpuscular Volume 97.5 Mean Corpuscular Hemoglobin 33.7 H Mean Corpuscular Hemoglobin Concent 34.5 Red Cell Distribution Width 13.2 Platelet Count 180 Mean Platelet Volume 9.4 Immature Granulocytes % 0.500 H Neutrophils % Segmented Neutrophils % (Manual) 42 Band Neutrophils % (Manual) 1 Lymphocytes % Lymphocytes % (Manual) 23 Reactive Lymphocytes % (Manual) 25 H Monocytes % Monocytes % (Manual) 5 Eosinophils % Eosinophils % (Manual) 4 Basophils % Nucleated Red Blood Cells % 0.0 Immature Granulocytes # 0.060 H Neutrophils # Neutrophils # (Manual) 5.2 Band Neutrophils # 0.1 Lymphocytes (Manual) 2.8 Lymphocytes # Reactive Lymphocytes # 3.0 H Monocytes # Monocytes # (Manual) 0.6 Eosinophils # Basophils # Nucleated Red Blood Cells # Platelet Estimate NORMAL Polychromasia 1+ Anisocytosis 1+ Echinocytes 1+ Sodium Level 132 L Potassium Level 4.3 Chloride Level 97 Carbon Dioxide Level 32 H Anion Gap 3 L Blood Urea Nitrogen 19 Creatinine 0.67 Est Glomerular Filtrat Rate mL/min > 60 Glucose Level 114 Calcium Level 8.2 L Magnesium Level 1.9 Iron Level 65 Total Iron Binding Capacity 222 L Percent Iron Saturation 29 Total Bilirubin 0.5 Direct Bilirubin 0.00 Indirect Bilirubin 0.5 Aspartate Amino Transf (AST/SGOT) 19 Alanine Aminotransferase (ALT/SGPT) 27 Alkaline Phosphatase 57 Total Protein 5.9 L Albumin 3.1 L Globulin 2.80 Albumin/Globulin Ratio 1.10 Triglycerides Level 57 Cholesterol Level 109 LDL Cholesterol, Calculated 63 HDL Cholesterol 35 Cholesterol/HDL Ratio 3.1 Consultation Date/Type/Reason Admit Date/Time May 25, 2018 at 14:20 Type of Consult Neurology Requesting Provider: SURINDER NAVA MD Date/Time of Note DATE: 05/29/18 TIME: 12:26 Hx of Present Illness Hx of Present Illness This is a 63-year-old male with a past medical history of hypertension currently off antihypertensives because of frequent fainting spells, COPD, dyslipidemia, and anxiety disorder. The patient had a fall last night at 11 PM in his apartment. The patient verbalized that he got out of his bed and walked to the bathroom and he does not remember anything. The next thing he remembers was him lying on the floor. The patient crawled to his bedroom. The patient called his neighbor the next morning and was brought to the ER by EMS. He reported pain in the left lower extremity and inability to ambulate. The patient does not remember if he hit his head. He verbalized that he has been having frequent episodes of fainting in the recent past and he was told not to take his antihypertensives because his syncopal episodes are caused by hypotension. The patient denied any chest pain and the patient denied any history of seizures. In the emergency room, the patient underwent a x-ray of the left lower extremity that was showing comminuted fracture of the left proximal tibia with mild medial and anterior displacement of the distal fracture fragments along with mildly impacted fracture of the left proximal fibula. A splint was put in by the ER physician. An orthopedic surgery consult was obtained. negative unless noted otherwise in HPI Exam/Review of Systems Vital Signs Vitals Vital Signs Date Temp Pulse Resp B/P (MAP) Pulse Ox O2 O2 Flow FiO2 Time Delivery Rate 05/29/18 72 12:00 05/29/18 98.3 18 131/67 96 11:59 (88) 139/73 (95) 05/29/18 Nasal 3.0 10:48 Cannula Intake and Output 05/28/18 05/28/18 05/29/18 1515:00 23:00 07:00 IntakeIntake Total 900 ml 720 ml OutputOutput Total 500 ml 650 ml BalanceBalance 400 ml 70 ml Exam PE: Gen Appearance: No Apparent Distress HEENT: Normocephalic Cardiovascular: Regular rate Lungs: Clear bilaterally Abdomen: Soft Extremities: Dry NE: The patient was alert and oriented.. Language was normal. Fund of knowledge was normal. Pupils were equal and reactive to light. There was no afferent pupillary defect. Visual singh were normal. Funduscopic examination was limited. Extra-ocular m ovements were full. Ptosis was absent. There was no nystagmus. Facial sensation was normal. Face was symmetric with normal strength. Hearing was intact. Palate movements were normal. Neck strength was normal. There was normal tongue bulk and speed of movement. Tone was normal. Muscle bulk was normal. I did not see fasciculations. Arms were strong; legs were pain-limited (L>R). Vibration sensation was normal. Temperature and pinprick sensation was normal. Rapid alternating movements were normal. There was no dysmetria. There was no intention tremor. Gait was deferred due to bedrest. Arm and leg reflexes were 2+ and symmetric. Rodriguez's sign was absent. Plantar responses were flexor. Medications Medications Current Medications IV Flush (NS 3 ml) 3 ml PER PROTOCOL IV ; Start 05/25/18 at 16:00 Ondansetron HCl (Zofran Inj) 4 mg Q6H PRN IV NAUSEA AND/OR VOMITING; Start 05/25/18 at 16:00 Acetaminophen (Tylenol Tab) 650 mg Q6H PRN PO PAIN LEVEL 1-3 OR FEVER; Start 05/25/18 at 16:00 Acetaminophen/ Hydrocodone Bitart ([place] (5/325)) 1 tab Q6H PRN PO PAIN LEVEL 4-6 Last administered on 05/27/18at 09:46; Admin Dose 1 TAB; Start 05/25/18 at 16:00 Enoxaparin Sodium (Lovenox) 40 mg DAILY SC Last administered on 05/29/18 08:34; Admin Dose 40 MG; Start 05/26/18 at 09:00 Tiotropium [place] (Spiriva) 1 inh DAILY INH Last administered on 05/29/18 08:24; Admin Dose 1 INH; Start 05/26/18 at 09:00 Albuterol (Proventil 0.083% (Neb)) 2.5 mg Q4H RESP THERAPY PRN HHN SHORTNESS OF BREATH; Start 05/25/18 at 16:30 Atorvastatin Calcium (Lipitor) 40 mg QHS PO Last administered on 05/28/18 20:45; Admin Dose 40 MG; Start 05/25/18 at 21:00 Buspirone HCl (Buspar) 10 mg TID PO Last administered on 05/29/18 12:14; Admin Dose 10 MG; Start 05/25/18 at 21:00 Cholecalciferol (Vitamin D) 1,000 unit DAILY PO Last administered on 05/29/18 08:23; Admin Dose 1,000 UNIT; Start 05/26/18 at 09:00 Cyanocobalamin (Vitamin B12) 1,000 mcg DAILY PO Last administered on 05/29/18 08:34; Admin Dose 1,000 MCG; Start 05/26/18 at 09:00 Docusate Sodium (Colace) 250 mg DAILY PO Last administered on 05/29/18 08:23; Admin Dose 250 MG; Start 05/26/18 at 09:00 Fluoxetine HCl (Prozac) 10 mg DAILY PO Last administered on 05/29/18 08:23; Admin Dose 10 MG; Start 05/26/18 at 09:00 Fluticasone Propionate (Flonase 0.05% Nasal) 1 spray DAILY NASAL Last administered on 05/29/18 08:25; Admin Dose 1 SPRAY; Start 05/26/18 at 09:00 Polyethylene Glycol (Miralax) 17 gm DAILY PO Last administered on 05/29/18 08:23; Admin Dose 17 GM; Start 05/26/18 at 09:00 Arformoterol Tartrate (Brovana (Neb)) 2 ml BID RESP THERAPY NEB Last administered on 05/28/18 20:26; Admin Dose 2 ML; Start 05/25/18 at 20:00 Lorazepam (Ativan) 1 mg Q2H PRN IV Anxiety; Start 05/25/18 at 17:00 Multivitamins Therapeutic (Theragran) 1 tab DAILY PO Last administered on 05/29/18 08:23; Admin Dose 1 TAB; Start 05/26/18 at 09:00 Morphine Sulfate (morphine SULFATE (PF)) 2 mg Q4H PRN IV PAIN LEVEL 7-10 Last administered on 05/29/18 08:24; Admin Dose 2 MG; Start 05/25/18 at 22:00 Metoprolol Tartrate (Lopressor) 25 mg BID PO Last administered on 05/29/18 08:24; Admin Dose 25 MG; Start 05/26/18 at 21:00 Chlordiazepoxide (Librium) 10 mg TID PO Last administered on 05/29/18 12:14; Admin Dose 10 MG; Start 05/27/18 at 13:00 Albuterol (Ventolin Hfa) 2 puff Q6H RESP THERAPY PRN INH SHORTNESS OF BREATH; Start 05/28/18 at 16:00 Imaging Imaging CTH reviewed: IMPRESSION: 1. Negative for evidence of acute intracranial hemorrhage or significant mass effect. Negative for CT evidence of acute large territory vascular infarct. If there is concern for recent ischemia, consider MRI brain for further evaluation. 2. Patchy low density changes in the supratentorial deep white matter are nonspecific but likely due to chronic small vessel ischemia. Chronic lacunar infarcts in bilateral cerebral hemispheres as described. 3. Moderate intracranial atherosclerosis. Moderate diffuse cerebral tissue loss. CTA N: IMPRESSION: 1. Focal 50 - 69% stenosis proximal right ICA due to calcified plaque. 2. Focal 50% stenosis proximal left ICA due to calcified plaque. 3. Aortic arch and great vessel origins were not included in the film of view. Past Medical History reviewed Medications Current Medications IV Flush (NS 3 ml) 3 ml PER PROTOCOL IV ; Start 05/25/18 at 16:00 Ondansetron HCl (Zofran Inj) 4 mg Q6H PRN IV NAUSEA AND/OR VOMITING; Start 05/25/18 at 16:00 Acetaminophen (Tylenol Tab) 650 mg Q6H PRN PO PAIN LEVEL 1-3 OR FEVER; Start 05/25/18 at 16:00 Acetaminophen/ Hydrocodone Bitart ([place] (5/325)) 1 tab Q6H PRN PO PAIN LEVEL 4-6 Last administered on 05/27/18at 09:46; Admin Dose 1 TAB; Start 05/25/18 at 16:00 Enoxaparin Sodium (Lovenox) 40 mg DAILY SC Last administered on 05/29/18 08:34; Admin Dose 40 MG; Start 05/26/18 at 09:00 Tiotropium [place] (Spiriva) 1 inh DAILY INH Last administered on 05/29/18 08:24; Admin Dose 1 INH; Start 05/26/18 at 09:00 Albuterol (Proventil 0.083% (Neb)) 2.5 mg Q4H RESP THERAPY PRN HHN SHORTNESS OF BREATH; Start 05/25/18 at 16:30 Atorvastatin Calcium (Lipitor) 40 mg QHS PO Last administered on 05/28/18 20:45; Admin Dose 40 MG; Start 05/25/18 at 21:00 Buspirone HCl (Buspar) 10 mg TID PO Last administered on 05/29/18 12:14; Admin Dose 10 MG; Start 05/25/18 at 21:00 Cholecalciferol (Vitamin D) 1,000 unit DAILY PO Last administered on 05/29/18 08:23; Admin Dose 1,000 UNIT; Start 05/26/18 at 09:00 Cyanocobalamin (Vitamin B12) 1,000 mcg DAILY PO Last administered on 05/29/18 08:34; Admin Dose 1,000 MCG; Start 05/26/18 at 09:00 Docusate Sodium (Colace) 250 mg DAILY PO Last administered on 05/29/18 08:23; Admin Dose 250 MG; Start 05/26/18 at 09:00 Fluoxetine HCl (Prozac) 10 mg DAILY PO Last administered on 05/29/18 08:23; Admin Dose 10 MG; Start 05/26/18 at 09:00 Fluticasone Propionate (Flonase 0.05% Nasal) 1 spray DAILY NASAL Last administered on 05/29/18 08:25; Admin Dose 1 SPRAY; Start 05/26/18 at 09:00 Polyethylene Glycol (Miralax) 17 gm DAILY PO Last administered on 05/29/18 08:23; Admin Dose 17 GM; Start 05/26/18 at 09:00 Arformoterol Tartrate (Brovana (Neb)) 2 ml BID RESP THERAPY NEB Last administered on 05/28/18 20:26; Admin Dose 2 ML; Start 05/25/18 at 20:00 Lorazepam (Ativan) 1 mg Q2H PRN IV Anxiety; Start 05/25/18 at 17:00 Multivitamins Therapeutic (Theragran) 1 tab DAILY PO Last administered on 05/29/18 08:23; Admin Dose 1 TAB; Start 05/26/18 at 09:00 Morphine Sulfate (morphine SULFATE (PF)) 2 mg Q4H PRN IV PAIN LEVEL 7-10 Last administered on 05/29/18 08:24; Admin Dose 2 MG; Start 05/25/18 at 22:00 Metoprolol Tartrate (Lopressor) 25 mg BID PO Last administered on 05/29/18 08:24; Admin Dose 25 MG; Start 05/26/18 at 21:00 Chlordiazepoxide (Librium) 10 mg TID PO Last administered on 05/29/18 12:14; Admin Dose 10 MG; Start 05/27/18 at 13:00 Albuterol (Ventolin Hfa) 2 puff Q6H RESP THERAPY PRN INH SHORTNESS OF BREATH; Start 05/28/18 at 16:00 Allergies: Coded Allergies: No Known Allergy (Unverified , 05/25/18) Past Surgical History reviewed Social History reviewed Alcohol Use: heavy Smoking Status: Former smoker Drug Use: none FILEMON AREVALO NP May 29, 2018 12:26 MIKE RENEE May 30, 2018 06:37
--- NOTE | 2018-05-29 13:29 | CONS ---
Date/Time of Note Date/Time of Note DATE: 05/29/18 TIME: 13:28 Assessment/Plan Assessment/Plan Hospital Course IMPRESSION: 1. Syncope, rule out cardiac etiology, rule out cardiac arrhythmia. -neg trop x 3 2. Abnormal electrocardiogram, assess for acute coronary syndrome. 3. Dyslipidemia without medications. 4. Left tibia fracture. 5. History of chronic obstructive pulmonary disease. 6. Possible anxiety disorder. 7. Hyponatremia-slowly improving 8. Leukocytosis. 9. carotid stenosis REcc: -Tele -Continue BB -pain control -continue statin -s/p vascular surgery consult given carotid stenosis -s/p orthopaedic surgical procedure Result Diagram: 05/29/18 0434 05/29/18 0434 Results 24hrs Laboratory Tests Test 05/29/18 04:34 White Blood Count 12.3 H Red Blood Count 3.15 L Hemoglobin 10.6 L Hematocrit 30.7 L Mean Corpuscular Volume 97.5 Mean Corpuscular Hemoglobin 33.7 H Mean Corpuscular Hemoglobin Concent 34.5 Red Cell Distribution Width 13.2 Platelet Count 180 Mean Platelet Volume 9.4 Immature Granulocytes % 0.500 H Neutrophils % Segmented Neutrophils % (Manual) 42 Band Neutrophils % (Manual) 1 Lymphocytes % Lymphocytes % (Manual) 23 Reactive Lymphocytes % (Manual) 25 H Monocytes % Monocytes % (Manual) 5 Eosinophils % Eosinophils % (Manual) 4 Basophils % Nucleated Red Blood Cells % 0.0 Immature Granulocytes # 0.060 H Neutrophils # Neutrophils # (Manual) 5.2 Band Neutrophils # 0.1 Lymphocytes (Manual) 2.8 Lymphocytes # Reactive Lymphocytes # 3.0 H Monocytes # Monocytes # (Manual) 0.6 Eosinophils # Basophils # Nucleated Red Blood Cells # Platelet Estimate NORMAL Polychromasia 1+ Anisocytosis 1+ Echinocytes 1+ Sodium Level 132 L Potassium Level 4.3 Chloride Level 97 Carbon Dioxide Level 32 H Anion Gap 3 L Blood Urea Nitrogen 19 Creatinine 0.67 Est Glomerular Filtrat Rate mL/min > 60 Glucose Level 114 Calcium Level 8.2 L Magnesium Level 1.9 Iron Level 65 Total Iron Binding Capacity 222 L Percent Iron Saturation 29 Total Bilirubin 0.5 Direct Bilirubin 0.00 Indirect Bilirubin 0.5 Aspartate Amino Transf (AST/SGOT) 19 Alanine Aminotransferase (ALT/SGPT) 27 Alkaline Phosphatase 57 Total Protein 5.9 L Albumin 3.1 L Globulin 2.80 Albumin/Globulin Ratio 1.10 Triglycerides Level 57 Cholesterol Level 109 LDL Cholesterol, Calculated 63 HDL Cholesterol 35 Cholesterol/HDL Ratio 3.1 Consultation Date/Type/Reason Admit Date/Time May 25, 2018 at 14:20 Initial Consult Date 05/25/18 Type of Consult cardiology Reason for Consultation syncope Requesting Provider: DU HOWARD NP Exam/Review of Systems Vital Signs Vitals Vital Signs Date Temp Pulse Resp B/P (MAP) Pulse Ox O2 O2 Flow FiO2 Time Delivery Rate 05/29/18 72 12:00 05/29/18 98.3 18 131/67 96 11:59 (88) 139/73 (95) 05/29/18 Nasal 3.0 10:48 Cannula Intake and Output 05/28/18 05/28/18 05/29/18 1515:00 23:00 07:00 IntakeIntake Total 900 ml 720 ml OutputOutput Total 500 ml 650 ml BalanceBalance 400 ml 70 ml Exam Review of Systems: CONSTITUTIONAL: No fevers, chills. PULMONARY: No sob CARDIOVASCULAR: No chest pain/palpitations GASTROINTESTINAL: No nausea/vomiting. GENITOURINARY: No hematuria/dysuria. MUSCULOSKELETAL: No myagias/arthalgias. PSYCHIATRIC: The patient denies depression. NEUROLOGIC: No weakness Constitutional: alert, oriented Psych: no complaints Head: normocephalic ENMT: mucosa pink and moist Neck: supple, jvd (9 cm water) Respiratory: diminished breath sounds Cardiovascular: regular rate and rhythm Gastrointestinal: soft, non-tender Musculoskeletal: muscle tone (normal) Extremities: edema (none) Neurological: other (No focal deficits) Medications Medications Current Medications IV Flush (NS 3 ml) 3 ml PER PROTOCOL IV ; Start 05/25/18 at 16:00 Ondansetron HCl (Zofran Inj) 4 mg Q6H PRN IV NAUSEA AND/OR VOMITING; Start 05/25/18 at 16:00 Acetaminophen (Tylenol Tab) 650 mg Q6H PRN PO PAIN LEVEL 1-3 OR FEVER; Start 05/25/18 at 16:00 Acetaminophen/ Hydrocodone Bitart ([place] (5/325)) 1 tab Q6H PRN PO PAIN LEVEL 4-6 Last administered on 05/27/18at 09:46; Admin Dose 1 TAB; Start 05/25/18 at 16:00 Enoxaparin Sodium (Lovenox) 40 mg DAILY SC Last administered on 05/29/18 08:34; Admin Dose 40 MG; Start 05/26/18 at 09:00 Tiotropium [place] (Spiriva) 1 inh DAILY INH Last administered on 05/29/18 08:24; Admin Dose 1 INH; Start 05/26/18 at 09:00 Albuterol (Proventil 0.083% (Neb)) 2.5 mg Q4H RESP THERAPY PRN HHN SHORTNESS OF BREATH; Start 05/25/18 at 16:30 Atorvastatin Calcium (Lipitor) 40 mg QHS PO Last administered on 05/28/18 20:45; Admin Dose 40 MG; Start 05/25/18 at 21:00 Buspirone HCl (Buspar) 10 mg TID PO Last administered on 05/29/18 12:14; Admin Dose 10 MG; Start 05/25/18 at 21:00 Cholecalciferol (Vitamin D) 1,000 unit DAILY PO Last administered on 05/29/18 08:23; Admin Dose 1,000 UNIT; Start 05/26/18 at 09:00 Cyanocobalamin (Vitamin B12) 1,000 mcg DAILY PO Last administered on 05/29/18 08:34; Admin Dose 1,000 MCG; Start 05/26/18 at 09:00 Docusate Sodium (Colace) 250 mg DAILY PO Last administered on 05/29/18 08:23; Admin Dose 250 MG; Start 05/26/18 at 09:00 Fluoxetine HCl (Prozac) 10 mg DAILY PO Last administered on 05/29/18 08:23; Admin Dose 10 MG; Start 05/26/18 at 09:00 Fluticasone Propionate (Flonase 0.05% Nasal) 1 spray DAILY NASAL Last administered on 05/29/18 08:25; Admin Dose 1 SPRAY; Start 05/26/18 at 09:00 Polyethylene Glycol (Miralax) 17 gm DAILY PO Last administered on 05/29/18 08:23; Admin Dose 17 GM; Start 05/26/18 at 09:00 Arformoterol Tartrate (Brovana (Neb)) 2 ml BID RESP THERAPY NEB Last administered on 05/28/18 20:26; Admin Dose 2 ML; Start 05/25/18 at 20:00 Lorazepam (Ativan) 1 mg Q2H PRN IV Anxiety; Start 05/25/18 at 17:00 Multivitamins Therapeutic (Theragran) 1 tab DAILY PO Last administered on 05/29/18 08:23; Admin Dose 1 TAB; Start 05/26/18 at 09:00 Morphine Sulfate (morphine SULFATE (PF)) 2 mg Q4H PRN IV PAIN LEVEL 7-10 Last administered on 05/29/18 08:24; Admin Dose 2 MG; Start 05/25/18 at 22:00 Metoprolol Tartrate (Lopressor) 25 mg BID PO Last administered on 05/29/18 08:24; Admin Dose 25 MG; Start 05/26/18 at 21:00 Chlordiazepoxide (Librium) 10 mg TID PO Last administered on 05/29/18 12:14; Admin Dose 10 MG; Start 05/27/18 at 13:00 Albuterol (Ventolin Hfa) 2 puff Q6H RESP THERAPY PRN INH SHORTNESS OF BREATH; Start 05/28/18 at 16:00 IVANA LANGSTON May 29, 2018 13:29
--- NOTE | 2018-05-29 15:26 | PN ---
Date/Time of Note Date/Time of Note DATE: 05/29/18 TIME: 15:24 Assessment/Plan VTE Prophylaxis Risk score (from Ns)>0 risk: 13 SCD applied (from [facility] [place]): No SCD contraindicated: bilateral LE trauma Pharmacological prophylaxis: NA/contraindicated, LMWH Pharm contraindication: low risk/ambulating Lines/Catheters IV [facility]ter Type (from [facility] Peripheral IV Urinary Cath still in place: No Assessment/Plan Hospital Course Assessment and plan 1. Syncope ukn etio, likely due to orthostatic changes/hypovolemia. unable to do orthostatics, stable observe and appreciate neurology opinion 2. Carotid stenosis bilateral, possibly symptomatic, stable consulted neuro. Surgical eval appreciated. 3. Lt Tib- Fib fracture sp reduction/ immobilization, nwb, stable, dc to snf. X-rays prior to or to visit 4. Past alcoholism vs ongoing? 5. Nonadherence 6. Failure to thrive: Discharge to sniff after eval from neuro/vascular carotid stenosis 7. Anemia rule out occult bleed 8. History of lacunar infarcts? MRI pending 9. Chronic COPD 10. Past tobacco 11. Hypertension? 12. Dyslipidemia 13. Abn EKG, however echo w/o any wma's Subjective: no history of tongue bite or incontinence. Recurrent falls possibly syncope occurring without any known aggravating or relieving factors. Sometimes days sometimes night sometimes outside his house. No previous history of injuries prior to this arrival. He drinks 4 beers a day. He is awake alert oriented to year month and eyes any chest pain palpitations loss of focal deficits speech or vision prior to these events. Denies any history of strokes. 05/29: No distress. No loss of speech vision focal deficits, chest pain or palpitations Objective: Vital signs stable Physical exam No pallor adenopathy droop or carotid bruits appreciated Heart reg no murmur rub gallop Clear Benign No edema Neuro: Essentially symmet bilat Result Diagram: 05/29/18 0434 05/29/18 0434 Results 24hrs Laboratory Tests Test 05/29/18 04:34 White Blood Count 12.3 H Red Blood Count 3.15 L Hemoglobin 10.6 L Hematocrit 30.7 L Mean Corpuscular Volume 97.5 Mean Corpuscular Hemoglobin 33.7 H Mean Corpuscular Hemoglobin Concent 34.5 Red Cell Distribution Width 13.2 Platelet Count 180 Mean Platelet Volume 9.4 Immature Granulocytes % 0.500 H Neutrophils % Segmented Neutrophils % (Manual) 42 Band Neutrophils % (Manual) 1 Lymphocytes % Lymphocytes % (Manual) 23 Reactive Lymphocytes % (Manual) 25 H Monocytes % Monocytes % (Manual) 5 Eosinophils % Eosinophils % (Manual) 4 Basophils % Nucleated Red Blood Cells % 0.0 Immature Granulocytes # 0.060 H Neutrophils # Neutrophils # (Manual) 5.2 Band Neutrophils # 0.1 Lymphocytes (Manual) 2.8 Lymphocytes # Reactive Lymphocytes # 3.0 H Monocytes # Monocytes # (Manual) 0.6 Eosinophils # Basophils # Nucleated Red Blood Cells # Platelet Estimate NORMAL Polychromasia 1+ Anisocytosis 1+ Echinocytes 1+ Sodium Level 132 L Potassium Level 4.3 Chloride Level 97 Carbon Dioxide Level 32 H Anion Gap 3 L Blood Urea Nitrogen 19 Creatinine 0.67 Est Glomerular Filtrat Rate mL/min > 60 Glucose Level 114 Calcium Level 8.2 L Magnesium Level 1.9 Iron Level 65 Total Iron Binding Capacity 222 L Percent Iron Saturation 29 Total Bilirubin 0.5 Direct Bilirubin 0.00 Indirect Bilirubin 0.5 Aspartate Amino Transf (AST/SGOT) 19 Alanine Aminotransferase (ALT/SGPT) 27 Alkaline Phosphatase 57 Total Protein 5.9 L Albumin 3.1 L Globulin 2.80 Albumin/Globulin Ratio 1.10 Triglycerides Level 57 Cholesterol Level 109 LDL Cholesterol, Calculated 63 HDL Cholesterol 35 Cholesterol/HDL Ratio 3.1 Exam/Review of Systems Vital Signs Vitals Vital Signs Date Temp Pulse Resp B/P (MAP) Pulse Ox O2 O2 Flow FiO2 Time Delivery Rate 05/29/18 72 12:00 05/29/18 98.3 18 131/67 96 11:59 (88) 139/73 (95) 05/29/18 Nasal 3.0 10:48 Cannula Intake and Output 05/28/18 05/28/18 05/29/18 1515:00 23:00 07:00 IntakeIntake Total 900 ml 720 ml OutputOutput Total 500 ml 650 ml BalanceBalance 400 ml 70 ml Medications Medications Current Medications IV Flush (NS 3 ml) 3 ml PER PROTOCOL IV ; Start 05/25/18 at 16:00 Ondansetron HCl (Zofran Inj) 4 mg Q6H PRN IV NAUSEA AND/OR VOMITING; Start 05/25/18 at 16:00 Acetaminophen (Tylenol Tab) 650 mg Q6H PRN PO PAIN LEVEL 1-3 OR FEVER; Start 05/25/18 at 16:00 Acetaminophen/ Hydrocodone Bitart ([place] (5/325)) 1 tab Q6H PRN PO PAIN LEVEL 4-6 Last administered on 05/27/18at 09:46; Admin Dose 1 TAB; Start 05/25/18 at 16:00 Enoxaparin Sodium (Lovenox) 40 mg DAILY SC Last administered on 05/29/18 08:34; Admin Dose 40 MG; Start 05/26/18 at 09:00 Tiotropium [place] (Spiriva) 1 inh DAILY INH Last administered on 05/29/18 08:24; Admin Dose 1 INH; Start 05/26/18 at 09:00 Albuterol (Proventil 0.083% (Neb)) 2.5 mg Q4H RESP THERAPY PRN HHN SHORTNESS OF BREATH; Start 05/25/18 at 16:30 Atorvastatin Calcium (Lipitor) 40 mg QHS PO Last administered on 05/28/18at 20: 45; Admin Dose 40 MG; Start 05/25/18 at 21:00 Buspirone HCl (Buspar) 10 mg TID PO Last administered on 05/29/18 12:14; Admin Dose 10 MG; Start 05/25/18 at 21:00 Cholecalciferol (Vitamin D) 1,000 unit DAILY PO Last administered on 05/29/18 08:23; Admin Dose 1,000 UNIT; Start 05/26/18 at 09:00 Cyanocobalamin (Vitamin B12) 1,000 mcg DAILY PO Last administered on 05/29/18 08:34; Admin Dose 1,000 MCG; Start 05/26/18 at 09:00 Docusate Sodium (Colace) 250 mg DAILY PO Last administered on 05/29/18 08:23; Admin Dose 250 MG; Start 05/26/18 at 09:00 Fluoxetine HCl (Prozac) 10 mg DAILY PO Last administered on 05/29/18 08:23; Admin Dose 10 MG; Start 05/26/18 at 09:00 Fluticasone Propionate (Flonase 0.05% Nasal) 1 spray DAILY NASAL Last administered on 05/29/18 08:25; Admin Dose 1 SPRAY; Start 05/26/18 at 09:00 Polyethylene Glycol (Miralax) 17 gm DAILY PO Last administered on 05/29/18 08 :23; Admin Dose 17 GM; Start 05/26/18 at 09:00 Arformoterol Tartrate (Brovana (Neb)) 2 ml BID RESP THERAPY NEB Last administered on 05/28/18at 20:26; Admin Dose 2 ML; Start 05/25/18 at 20:00 Lorazepam (Ativan) 1 mg Q2H PRN IV Anxiety; Start 05/25/18 at 17:00 Multivitamins Therapeutic (Theragran) 1 tab DAILY PO Last administered on 05/29/18 08:23; Admin Dose 1 TAB; Start 05/26/18 at 09:00 Morphine Sulfate (morphine SULFATE (PF)) 2 mg Q4H PRN IV PAIN LEVEL 7-10 Last administered on 05/29/18 08:24; Admin Dose 2 MG; Start 05/25/18 at 22:00 Metoprolol Tartrate (Lopressor) 25 mg BID PO Last administered on 05/29/18 08:24; Admin Dose 25 MG; Start 05/26/18 at 21:00 Chlordiazepoxide (Librium) 10 mg TID PO Last administered on 05/29/18 12:14; Admin Dose 10 MG; Start 05/27/18 at 13:00 Albuterol (Ventolin Hfa) 2 puff Q6H RESP THERAPY PRN INH SHORTNESS OF BREATH; Start 05/28/18 at 16:00 SURINDER NAVA MD May 29, 2018 15:26
--- NOTE | 2018-05-29 17:24 | NUR ---
EOSS Patient is alert, oriented x4. Respiration even and unlabored. On nasal cannula at 2lit/min. No SOB or desaturation noted. Patient on bed rest. Repositioned Q2H. Denies pain,
[2018-05-29] MEDS: ATORVASTATIN 40 MG TAB PO SCH (21:42)
[2018-05-30] VITALS (13 sets, daily range): BP systolic 116–162; BP diastolic 57–84; PULSE 68–92; RESP 18–20
--- NOTE | 2018-05-30 05:39 | NUR ---
Collected stool sample. Informed lab to pick pack worker sample.
[2018-05-30] MEDS: CYANOCOBALAMIN 500 MCG TAB PO SCH (08:11)
[2018-05-30] MEDS: CHLORDIAZEPOXIDE 5 MG CAP PO SCH ×3 (08:11→20:23)
[2018-05-30] MEDS: TIOTROPIUM 18 MCG CAPSULE INHA DEV INH SCH (08:11)
[2018-05-30] MEDS: MULTIVITAMINS THERAPEUTIC TAB PO SCH (08:11)
[2018-05-30] MEDS: METOPROLOL 25 MG TAB PO SCH ×2 (08:12→20:24)
[2018-05-30] MEDS: FLUOXETINE 10 MG CAP PO SCH (08:12)
[2018-05-30] MEDS: BUSPIRONE 10 MG TAB PO SCH ×3 (08:12→20:24)
[2018-05-30] MEDS: DOCUSATE SODIUM 250 MG CAP PO SCH (08:12)
[2018-05-30] MEDS: CHOLECALCIFEROL 1,000 UNIT TAB PO SCH (08:12)
[2018-05-30] MEDS: FLUTICASONE 0.05% 16 GM NAS SPRAY NASAL SCH (08:13)
[2018-05-30] MEDS: POLYETHYLENE GLYCOL 17 GM PACKET PO SCH (08:13)
[2018-05-30] MEDS: ENOXAPARIN 40 MG/0.4 ML SYG SC SCH (08:29)
[2018-05-30] MEDS: ARFORMOTEROL TARTRATE 15MCG/2 ML AMP NEB SCH ×2 (08:30→21:05)
[2018-05-30] MEDS ORDERED: ASPIRIN (EC) 325 MG TAB PO ONE (11:00)
--- NOTE | 2018-05-30 11:19 | NUR ---
Received phone call from patient's sister Madyson ([phone]), who requested to speak with Dr. Gallo and Dr. Morris. Informed both MDs.
--- NOTE | 2018-05-30 11:22 | CONS ---
Date/Time of Note Date/Time of Note DATE: 05/30/18 TIME: 11:21 Assessment/Plan Assessment/Plan Hospital Course IMPRESSION: 1. Syncope, rule out cardiac etiology, rule out cardiac arrhythmia. -neg trop x 3 2. Abnormal electrocardiogram, assess for acute coronary syndrome. 3. Dyslipidemia without medications. 4. Left tibia fracture. 5. History of chronic obstructive pulmonary disease. 6. Possible anxiety disorder. 7. Hyponatremia-slowly improving 8. Leukocytosis. 9. carotid stenosis REcc: -Tele -Continue BB -pain control -continue statin -s/p vascular surgery consult given carotid stenosis -s/p orthopaedic surgical procedure Result Diagram: 05/29/18 0434 05/29/18 0434 Results 24hrs Laboratory Tests Test 05/30/18 05:30 Stool Occult Blood NEGATIVE Consultation Date/Type/Reason Admit Date/Time May 25, 2018 at 14:20 Initial Consult Date 05/25/18 Type of Consult cardiology Reason for Consultation syncope Requesting Provider: SURINDER NAVA MD Exam/Review of Systems Vital Signs Vitals Vital Signs Date Temp Pulse Resp B/P (MAP) Pulse Ox O2 O2 Flow FiO2 Time Delivery Rate 05/30/18 3.0 08:32 05/30/18 82 18 96 Nasal 08:31 Cannula 05/30/18 98.2 137/81 07:47 (99) Intake and Output 05/29/18 05/29/18 05/30/18 1515:00 23:00 07:00 IntakeIntake Total 450 ml 520 ml OutputOutput Total 1200 ml 650 ml BalanceBalance -750 ml -130 ml Exam Review of Systems: CONSTITUTIONAL: No fevers, chills. PULMONARY: No sob CARDIOVASCULAR: No chest pain/palpitations GASTROINTESTINAL: No nausea/vomiting. GENITOURINARY: No hematuria/dysuria. MUSCULOSKELETAL: No myagias/arthalgias. PSYCHIATRIC: The patient denies depression. NEUROLOGIC: No weakness Constitutional: alert Psych: no complaints Head: normocephalic ENMT: mucosa pink and moist Neck: supple, jvd (9 cm water) Respiratory: diminished breath sounds Cardiovascular: regular rate and rhythm Gastrointestinal: soft, non-tender Musculoskeletal: muscle tone (normal) Extremities: edema (none) Neurological: other (No focalo deficits) Medications Medications Current Medications IV Flush (NS 3 ml) 3 ml PER PROTOCOL IV ; Start 05/25/18 at 16:00 Ondansetron HCl (Zofran Inj) 4 mg Q6H PRN IV NAUSEA AND/OR VOMITING; Start 05/25/18 at 16:00 Acetaminophen (Tylenol Tab) 650 mg Q6H PRN PO PAIN LEVEL 1-3 OR FEVER; Start 05/25/18 at 16:00 Acetaminophen/ Hydrocodone Bitart ([place] (5/325)) 1 tab Q6H PRN PO PAIN LEVEL 4-6 Last administered on 05/27/18 09:46; Admin Dose 1 TAB; Start 05/25/18 at 16:00 Enoxaparin Sodium (Lovenox) 40 mg DAILY SC Last administered on 05/30/18 08:29; Admin Dose 40 MG; Start 05/26/18 at 09:00 Tiotropium [place] (Spiriva) 1 inh DAILY INH Last administered on 05/30/18 08:11; Admin Dose 1 INH; Start 05/26/18 at 09:00 Albuterol (Proventil 0.083% (Neb)) 2.5 mg Q4H RESP THERAPY PRN HHN SHORTNESS OF BREATH; Start 05/25/18 at 16:30 Atorvastatin Calcium (Lipitor) 40 mg QHS PO Last administered on 05/29/18 21:42; Admin Dose 40 MG; Start 05/25/18 at 21:00 Buspirone HCl (Buspar) 10 mg TID PO Last administered on 05/30/18 08:12; Admin Dose 10 MG; Start 05/25/18 at 21:00 Cholecalciferol (Vitamin D) 1,000 unit DAILY PO Last administered on 05/30/18 08:12; Admin Dose 1,000 UNIT; Start 05/26/18 at 09:00 Cyanocobalamin (Vitamin B12) 1,000 mcg DAILY PO Last administered on 05/30/18 08:11; Admin Dose 1,000 MCG; Start 05/26/18 at 09:00 Docusate Sodium (Colace) 250 mg DAILY PO Last administered on 05/30/18 08:12; Admin Dose 250 MG; Start 05/26/18 at 09:00 Fluoxetine HCl (Prozac) 10 mg DAILY PO Last administered on 05/30/18 08:12; Admin Dose 10 MG; Start 05/26/18 at 09:00 Fluticasone Propionate (Flonase 0.05% Nasal) 1 spray DAILY NASAL Last administered on 05/30/18 08:13; Admin Dose 1 SPRAY; Start 05/26/18 at 09:00 Polyethylene Glycol (Miralax) 17 gm DAILY PO Last administered on 05/30/18 08:13; Admin Dose 17 GM; Start 05/26/18 at 09:00 Arformoterol Tartrate (Brovana (Neb)) 2 ml BID RESP THERAPY NEB Last administered on 05/29/18 19:37; Admin Dose 2 ML; Start 05/25/18 at 20:00 Lorazepam (Ativan) 1 mg Q2H PRN IV Anxiety; Start 05/25/18 at 17:00 Multivitamins Therapeutic (Theragran) 1 tab DAILY PO Last administered on 05/30/18 08:11; Admin Dose 1 TAB; Start 05/26/18 at 09:00 Morphine Sulfate (morphine SULFATE (PF)) 2 mg Q4H PRN IV PAIN LEVEL 7-10 Last administered on 05/29/18 18:34; Admin Dose 2 MG; Start 05/25/18 at 22:00 Metoprolol Tartrate (Lopressor) 25 mg BID PO Last administered on 05/30/18 08:12; Admin Dose 25 MG; Start 05/26/18 at 21:00 Chlordiazepoxide (Librium) 10 mg TID PO Last administered on 05/30/18 08:11; Admin Dose 10 MG; Start 05/27/18 at 13:00 Albuterol (Ventolin Hfa) 2 puff Q6H RESP THERAPY PRN INH SHORTNESS OF BREATH; Start 05/28/18 at 16:00 Aspirin (Halfprin) 81 mg DAILY PO ; Start 05/31/18 at 09:00 IVANA LANGSTON May 30, 2018 11:22
--- NOTE | 2018-05-30 11:59 | NUR ---
CM NOTE DISCHARGE PLAN UPDATE: INQUIRY SENT FOR SNF PLACEMENT TO [place] [phone] PHONE [facility] [phone] AND FAX [phone] FAX [facility] FAX [phone] [place] FAX [phone] [facility] FAX [phone] RECEIVED A CALL FROM [facility] AND PT IS BEING REVIEWED AT THIS TIME, WILL AWAIT AN UPDATE. Addendum: 05/30/18 at 1311 by SIENA DESAI RN, CM CM NOTE PT HAS BEEN ACCEPTED AT [facility] PER DISHA, PT IS NOW PENDING AUTH.
--- NOTE | 2018-05-30 12:40 | CONS ---
Assessment/Plan Assessment/Plan Hospital Course A: 63 yo M with hx of brain surgery NOS, repeated syncopal episodes who presents following a fall c/b L tib/fib fx...for which neurology is consulted. Of note, he reports a Hx of epilepsy earlier in life following remote head trauma... The clinical picture raises concern for seizure.. Of note, MRI brain revealed a small R putamen infarction.. CTA N is notable for moderate BL ICA stenoses, R> L. P: Recommend vascular surgeon to evaluate R carotid stenosis Await EEG to evaluate for epileptiform activity Start asa daily for secondary stroke prevention Cont Lipitor for the same Other medical management and supportive care per primary Will follow clinically Result Diagram: 05/29/18 0434 05/29/18 0434 Results 24hrs Laboratory Tests Test 05/30/18 05:30 Stool Occult Blood NEGATIVE Consultation Date/Type/Reason Admit Date/Time May 25, 2018 at 14:20 Type of Consult Neurology Requesting Provider: SURINDER NAVA MD Date/Time of Note DATE: 05/30/18 TIME: 12:40 24 HR Interval Summary Free Text/Dictation Continues telemetry monitoring. S/p MRI. Pt states that he had brain surgery as a kid after falling out of a window. He also states that he had a hx of epilepsy as a kid which according to him, has supposedly resolved. Exam Vital Signs Vitals Vital Signs Date Temp Pulse Resp B/P (MAP) Pulse Ox O2 O2 Flow FiO2 Time Delivery Rate 05/30/18 78 12:00 05/30/18 98.0 20 157/84 98 Nasal 11:46 (108) Cannula 05/30/18 3.0 08:32 Intake and Output 05/29/18 05/29/18 05/30/18 1515:00 23:00 07:00 IntakeIntake Total 450 ml 520 ml OutputOutput Total 1200 ml 650 ml BalanceBalance -750 ml -130 ml Exam PE: Gen Appearance: No Apparent Distress HEENT: Normocephalic Cardiovascular: Regular rate Lungs: Clear bilaterally Abdomen: Soft Extremities: Dry NE: The patient was alert and oriented.. Language was normal. Fund of knowledge was normal. Pupils were equal and reactive to light. There was no afferent pupillary defect. Visual singh were normal. Funduscopic examination was limited. Extra-ocular movements were full. Ptosis was absent. There was no nystagmus. Facial sensation was normal. Face was symmetric with normal strength. Hearing was intact. Palate movements were normal. Neck strength was normal. There was normal tongue bulk and speed of movement. Tone was normal. Muscle bulk was normal. I did not see fasciculations. Arms were strong; legs were pain-limited (L>R). Vibration sensation was normal. Temperature and pinprick sensation was normal. Rapid alternating movements were normal. There was no dysmetria. There was no intention tremor. Gait was deferred due to bedrest. Arm and leg reflexes were 2+ and symmetric. Rodriguez's sign was absent. Plantar responses were flexor. FILEMON AREVALO NP May 30, 2018 12:40 MIKE RENEE May 30, 2018 13:14
--- NOTE | 2018-05-30 14:10 | PN ---
Date/Time of Note Date/Time of Note DATE: 05/30/18 TIME: 14:01 Assessment/Plan VTE Prophylaxis Risk score (from Ns)>0 risk: 13 SCD applied (from Ns): No SCD contraindicated: low risk/ambulating Pharmacological prophylaxis: LMWH Lines/Catheters IV Catheter Type (from [facility]): Peripheral IV Urinary Cath still in place: No Assessment/Plan Hospital Course Assessment and plan 1. Syncope ukn etio, likely due to orthostatic changes/hypovolemia. unable to do orthostatics, stable observe, appreciate neurology opinion. MRI results noted. EEG pending. 2. Carotid stenosis bilateral, possibly symptomatic, stable consulted neuro/vascular. 3. Lt Tib- Fib fracture sp reduction/ immobilization, nwb, stable, dc to snf. Xr prior to or to visit 4. Past alcoholism vs ongoing? 5. Nonadherence 6. Ftt: Dc to snf after eval from neuro/vascular carotid stenosis. vs ARU 7. Anemia rule out occult bleed 8. H/o lacunar infarcts? MRI- subacute/ acute; recommend recovery from stroke/ leg fracture, then carotid surgery 9. Chr COPD 10. Past tobacco 11. Hypertension? 12. Dyslipidemia 13. Abn EKG, however echo w/o any wma's S: no history of tongue bite or incontinence. Recurrent falls possibly syncope occurring without any known aggravating or relieving factors. Sometimes days sometimes night sometimes outside his house. No previous history of injuries p rior to this arrival. He drinks 4 beers a day. He is awake alert oriented to year month and eyes any chest pain palpitations loss of focal deficits speech or vision prior to these events. Denies any history of strokes. 05/29: No distress. No loss of speech vision focal deficits, chest pain or palp itations 05/30: No tongue bite no loss of speech or vision. Frustrated wants to ambulate. O: Vital signs stable PE No pallor adenopathy droop or carotid bruits appreciated s1s2 reg no m/r/g Clear Benign No edema; brace intact Neuro: Essentially symmet bilat Result Diagram: 05/29/1843305/29/18 0434 Results 24hrs Laboratory Tests Test 05/30/18 05:30 Stool Occult Blood NEGATIVE Exam/Review of Systems Vital Signs Vitals Vital Signs Date Temp Pulse Resp B/P (MAP) Pulse Ox O2 O2 Flow FiO2 Time Delivery Rate 05/30/18 78 12:00 05/30/18 98.0 20 157/84 98 Nasal 11:46 (108) Cannula 05/30/18 3.0 08:32 Intake and Output 05/29/18 05/29/18 05/30/18 1515:00 23:00 07:00 IntakeIntake Total 450 ml 520 ml OutputOutput Total 1200 ml 650 ml BalanceBalance -750 ml -130 ml Medications Medications Current Medications IV Flush (NS 3 ml) 3 ml PER PROTOCOL IV ; Start 05/25/18 at 16:00 Ondansetron HCl (Zofran Inj) 4 mg Q6H PRN IV NAUSEA AND/OR VOMITING; Start 05/25/18 at 16:00 Acetaminophen (Tylenol Tab) 650 mg Q6H PRN PO PAIN LEVEL 1-3 OR FEVER; Start 05/25/18 at 16:00 Acetaminophen/ Hydrocodone Bitart ([place] (5/325)) 1 tab Q6H PRN PO PAIN LEVEL 4-6 Last administered on 05/27/18 09:46; Admin Dose 1 TAB; Start 05/25/18 at 16:00 Enoxaparin Sodium (Lovenox) 40 mg DAILY SC Last administered on 05/30/18 08:29; Admin Dose 40 MG; Start 05/26/18 at 09:00 Tiotropium [place] (Spiriva) 1 inh DAILY INH Last administered on 05/30/18 08:11; Admin Dose 1 INH; Start 05/26/18 at 09:00 Albuterol (Proventil 0.083% (Neb)) 2.5 mg Q4H RESP THERAPY PRN HHN SHORTNESS OF BREATH; Start 05/25/18 at 16:30 Atorvastatin Calcium (Lipitor) 40 mg QHS PO Last administered on 05/29/18 21:42; Admin Dose 40 MG; Start 05/25/18 at 21:00 Buspirone HCl (Buspar) 10 mg TID PO Last administered on 05/30/18 12:04; Admin Dose 10 MG; Start 05/25/18 at 21:00 Cholecalciferol (Vitamin D) 1,000 unit DAILY PO Last administered on 05/30/18 08:12; Admin Dose 1,000 UNIT; Start 05/26/18 at 09:00 Cyanocobalamin (Vitamin B12) 1,000 mcg DAILY PO Last administered on 05/30/18 08:11; Admin Dose 1,000 MCG; Start 05/26/18 at 09:00 Docusate Sodium (Colace) 250 mg DAILY PO Last administered on 05/30/18 08:12; Admin Dose 250 MG; Start 05/26/18 at 09:00 Fluoxetine HCl (Prozac) 10 mg DAILY PO Last administered on 05/30/18 08:12; Admin Dose 10 MG; Start 05/26/18 at 09:00 Fluticasone Propionate (Flonase 0.05% Nasal) 1 spray DAILY NASAL Last administered on 05/30/18 08:13; Admin Dose 1 SPRAY; Start 05/26/18 at 09:00 Polyethylene Glycol (Miralax) 17 gm DAILY PO Last administered on 05/30/18 08:13; Admin Dose 17 GM; Start 05/26/18 at 09:00 Arformoterol Tartrate (Brovana (Neb)) 2 ml BID RESP THERAPY NEB Last administered on 05/29/18 19:37; Admin Dose 2 ML; Start 05/25/18 at 20:00 Lorazepam (Ativan) 1 mg Q2H PRN IV Anxiety; Start 05/25/18 at 17:00 Multivitamins Therapeutic (Theragran) 1 tab DAILY PO Last administered on 05/30/18 08:11; Admin Dose 1 TAB; Start 05/26/18 at 09:00 Morphine Sulfate (morphine SULFATE (PF)) 2 mg Q4H PRN IV PAIN LEVEL 7-10 Last administered on 05/29/18 18:34; Admin Dose 2 MG; Start 05/25/18 at 22:00 Metoprolol Tartrate (Lopressor) 25 mg BID PO Last administered on 05/30/18 08:12; Admin Dose 25 MG; Start 05/26/18 at 21:00 Chlordiazepoxide (Librium) 10 mg TID PO Last administered on 05/30/18 12:04; Admin Dose 10 MG; Start 05/27/18 at 13:00 Albuterol (Ventolin Hfa) 2 puff Q6H RESP THERAPY PRN INH SHORTNESS OF BREATH; Start 05/28/18 at 16:00 Aspirin (Halfprin) 81 mg DAILY PO ; Start 05/31/18 at 09:00 SURINDER NAVA MD May 30, 2018 14:10
--- NOTE | 2018-05-30 14:21 | NUR ---
cm note aru eval referral made s/w Dago ext [phone] and per Dago he will work on eval right away.
[2018-05-30] MEDS: THIAMINE 100 MG TAB PO SCH (15:54)
[2018-05-30] MEDS: LOSARTAN 25 MG TAB PO SCH (15:54)
--- NOTE | 2018-05-30 18:45 | PN ---
Date/Time of Note Date/Time of Note DATE: 05/30/18 TIME: 18:41 Assessment/Plan Lines/Catheters IV Catheter Type (from Nrsg): Peripheral IV Teague in Place (from Nrsg): No Assessment/Plan Assessment/Plan MPRESSION: 1. Syncope. 2. Right carotid stenosis. RECOMMENDATIONS: If no other cause of syncope is noted, the patient will need right carotid endarterectomy. This should be done after the patient has recovered from orthopedic procedure that was just done with fracture of the tibia. This can be done in 2 to 3 weeks This was discussed with the patient. We will discuss with the referring physicians. Subjective 24 Hr Interval Summary Constitutional: improved Pain Control: mild Exam/Review of Systems Vital Signs Vitals Vital Signs Date Temp Pulse Resp B/P (MAP) Pulse Ox O2 O2 Flow FiO2 Time Delivery Rate 05/30/18 88 16:04 05/30/18 98.3 20 162/77 92 Nasal 15:48 (105) Cannula 05/30/18 3.0 08:32 Intake and Output 05/29/18 05/29/18 05/30/18 1515:00 23:00 07:00 IntakeIntake Total 450 ml 520 ml OutputOutput Total 1200 ml 650 ml BalanceBalance -750 ml -130 ml Exam Eyes: nl conjunctiva, EOMI, nl lids, nl sclera ENMT: nl external ears & nose, nl lips & teeth, nl nasal mucosa & septum, mucosa pink and moist Neck: supple, non-tender Respiratory: clear to auscultation, normal air movement Cardiovascular: regular rate and rhythm, nl pulses Gastrointestinal: soft, nl liver, spleen, non-tender Musculoskeletal: nl extremities to inspection, nl gait and stance Results Result Diagram: 05/29/18 0434 05/29/18 0434 COLLIN MARTINS MD May 30, 2018 18:45
--- NOTE | 2018-05-30 20:02 | NUR ---
EOSS Patient is AAOx4. BP was slightly elevated with SBP in the 150s and 160s. Scheduled BP meds given and BP stabilized. Patient has denied any respiratory distress. On nasal cannula at 2L. No SOB or desaturation noted. Patient continues to be on bed rest. No complaints of pain during shift. Lastly, patient's sister Madyson called and stated she did not hear back from . Paged Dr. Hughes again to inform him. EEG results pending. All needs attended. Continue with plan of care.
[2018-05-30] MEDS: ATORVASTATIN 40 MG TAB PO SCH (20:24)
[2018-05-30] MEDS: morphine LIQ (10 MG/5 ML) CUP PO PRN (20:24)
[2018-05-31] VITALS (10 sets, daily range): BP systolic 142–167; BP diastolic 74–78; PULSE 67–81; RESP 18–20
--- NOTE | 2018-05-31 05:56 | NUR ---
NURSES NOTE: PATIENT REFUSED 4AM VITALS. CHARGE NURSE AWARE, PT STABLE, WILL CONTINUE TO MONITOR.
--- NOTE | 2018-05-31 06:43 | NUR ---
EOSS: PATIENT IS A/O X3-4, SR ON THE MONITORS, VSS, ON ROOM AIR, STILL HAS BRACE ON LEFT LEG, MANAGED PAIN THROUGHOUT THE NIGHT, NO C/O CP OR SOB, NO ACUTE EVENTS OVER NIGHT. PATIENT IS CLEAN AND DRY, HAS CALL LIGHT IN REACH, BED IN LOWEST POSITION, REFUSING BED ALARM, NON-SLIP SOCKS ON, ROOM IS CLUTTER FREE. CONTINUE POC; WILL ENDORSE TO DAY SHIFT RN.
--- NOTE | 2018-05-31 07:54 | EEG ---
EEG NOTE Report Details DATE OF TEST: 05/30/18 HISTORY: The patient is a 63-year-old M who presents following LOC. This EEG is requested to evaluate for an epileptic disorder. SEDATION: None. CONDITIONS OF RECORDING: This EEG was recorded digitally on the intelloCut machine, using the International 10-20 System of electrodes plus anterior temporals and [place]. STATES SAMPLED: Wakefulness through stage II sleep. FINDINGS: During wakefulness, there is a 7 Hz posterior dominant rhythm, which attenuates normally with eye opening. There is a normal vjwjuqno-ox-gayorheoa frequency-amplitude gradient. The remainder of the awake background is notable for admixed theta and delta activity. Photic stimulation does not elicit any definite driving responses or epileptiform discharges. Hyperventilation was not performed. The patient passed into sleep, reaching stage II, characterized by normal and symmetrical vertex waves and spindles. No asymmetries, focal abnormalities or epileptiform discharges were seen. IMPRESSION: Abnormal electroencephalogram due to: mild diffuse slowing. COMMENT: The slowing of the background indicates mild, diffuse cortical dysfunction of nonspecific etiology. Clinical correlation is advised. MIKE RENEE May 31, 2018 07:54
[2018-05-31] MEDS: METOPROLOL 25 MG TAB PO SCH ×2 (08:16→21:22)
[2018-05-31] MEDS: CHOLECALCIFEROL 1,000 UNIT TAB PO SCH (08:17)
[2018-05-31] MEDS: DOCUSATE SODIUM 250 MG CAP PO SCH (08:17)
[2018-05-31] MEDS: FLUOXETINE 10 MG CAP PO SCH (08:17)
[2018-05-31] MEDS: LOSARTAN 25 MG TAB PO SCH (08:17)
[2018-05-31] MEDS: CHLORDIAZEPOXIDE 5 MG CAP PO SCH ×3 (08:17→21:22)
[2018-05-31] MEDS: TIOTROPIUM 18 MCG CAPSULE INHA DEV INH SCH (08:18)
[2018-05-31] MEDS: THIAMINE 100 MG TAB PO SCH (08:18)
[2018-05-31] MEDS: CYANOCOBALAMIN 500 MCG TAB PO SCH (08:18)
[2018-05-31] MEDS: MULTIVITAMINS THERAPEUTIC TAB PO SCH (08:18)
[2018-05-31] MEDS: ASPIRIN (EC) 81 MG TAB PO SCH (08:18)
[2018-05-31] MEDS: BUSPIRONE 10 MG TAB PO SCH ×3 (08:18→21:22)
[2018-05-31] MEDS: POLYETHYLENE GLYCOL 17 GM PACKET PO SCH (08:18)
[2018-05-31] MEDS: FLUTICASONE 0.05% 16 GM NAS SPRAY NASAL SCH (08:18)
[2018-05-31] MEDS: ENOXAPARIN 40 MG/0.4 ML SYG SC SCH (08:34)
[2018-05-31] MEDS: ARFORMOTEROL TARTRATE 15MCG/2 ML AMP NEB SCH ×2 (08:39→20:00)
[2018-05-31] MEDS: morphine LIQ (10 MG/5 ML) CUP PO PRN ×2 (10:58→22:34)
--- NOTE | 2018-05-31 12:26 | CONS ---
Date/Time of Note Date/Time of Note DATE: 05/31/18 TIME: 12:23 Assessment/Plan Assessment/Plan Hospital Course IMPRESSION: 1. Syncope, rule out cardiac etiology, rule out cardiac arrhythmia. -neg trop x 3 2. Abnormal electrocardiogram, assess for acute coronary syndrome. 3. Dyslipidemia without medications. 4. Left tibia fracture. 5. History of chronic obstructive pulmonary disease. 6. Possible anxiety disorder. 7. Hyponatremia-slowly improving 8. Leukocytosis. 9. carotid stenosis REcc: -Tele -Continue BB -pain control -continue statin -s/p vascular surgery consult given carotid stenosis with plans for outpatient f/u and plans for surgery -s/p orthopaedic surgical procedure Result Diagram: 05/29/18 0434 05/29/18 0434 Results 24hrs Laboratory Tests Test 05/30/18 12:28 05/30/18 12:29 Erythrocyte Sedimentation Rate 20 Rapid Plasma Reagin NONREACTIVE Consultation Date/Type/Reason Admit Date/Time May 25, 2018 at 14:20 Initial Consult Date 05/25/18 Type of Consult cardiology Reason for Consultation jose Requesting Provider: SURINDER NAVA MD Exam/Review of Systems Vital Signs Vitals Vital Signs Date Temp Pulse Resp B/P (MAP) Pulse Ox O2 O2 Flow FiO2 Time Delivery Rate 05/31/18 72 12:01 05/31/18 98.3 20 142/78 92 Room Air 11:37 (99) 05/31/18 21 08:42 05/31/18 3.0 01:24 Intake and Output 05/30/18 05/30/18 05/31/18 1515:00 23:00 07:00 IntakeIntake Total 600 ml 100 ml OutputOutput Total 1200 ml 750 ml BalanceBalance -600 ml -650 ml Exam Review of Systems: CONSTITUTIONAL: No fevers, chills. PULMONARY: No sob CARDIOVASCULAR: No chest pain/palpitations GASTROINTESTINAL: No nausea/vomiting. GENITOURINARY: No hematuria/dysuria. MUSCULOSKELETAL: No myagias/arthalgias. PSYCHIATRIC: The patient denies depression. NEUROLOGIC: lethargic Constitutional: alert Psych: no complaints Head: normocephalic ENMT: mucosa pink and moist Neck: supple, jvd (9 cm water) Respiratory: clear to auscultation Cardiovascular: regular rate and rhythm Gastrointestinal: soft, non-tender Musculoskeletal: muscle tone (normal) Extremities: edema (none) Neurological: other (No focal deficits) Medications Medications Current Medications IV Flush (NS 3 ml) 3 ml PER PROTOCOL IV ; Start 05/25/18 at 16:00 Ondansetron HCl (Zofran Inj) 4 mg Q6H PRN IV NAUSEA AND/OR VOMITING; Start 05/25/18 at 16:00 Acetaminophen (Tylenol Tab) 650 mg Q6H PRN PO PAIN LEVEL 1-3 OR FEVER; Start 05/25/18 at 16:00 Acetaminophen/ Hydrocodone Bitart ([place] (5/325)) 1 tab Q6H PRN PO PAIN LEVEL 4-6 Last administered on 05/27/18at 09:46; Admin Dose 1 TAB; Start 05/25/18 at 16:00 Enoxaparin Sodium (Lovenox) 40 mg DAILY SC Last administered on 05/31/18 08:34; Admin Dose 40 MG; Start 05/26/18 at 09:00 Tiotropium Chaun[place] (Spiriva) 1 inh DAILY INH Last administered on 05/31/18 08:18; Admin Dose 1 INH; Start 05/26/18 at 09:00 Albuterol (Proventil 0.083% (Neb)) 2.5 mg Q4H RESP THERAPY PRN HHN SHORTNESS OF BREATH; Start 05/25/18 at 16:30 Atorvastatin Calcium (Lipitor) 40 mg QHS PO Last administered on 05/30/18 2 0:24; Admin Dose 40 MG; Start 05/25/18 at 21:00 Buspirone HCl (Buspar) 10 mg TID PO Last administered on 05/31/18 08:18; Admin Dose 10 MG; Start 05/25/18 at 21:00 Cholecalciferol (Vitamin D) 1,000 unit DAILY PO Last administered on 05/31/18 08:17; Admin Dose 1,000 UNIT; Start 05/26/18 at 09:00 Cyanocobalamin (Vitamin B12) 1,000 mcg DAILY PO Last administered on 05/31/18 08:18; Admin Dose 1,000 MCG; Start 05/26/18 at 09:00 Docusate Sodium (Colace) 250 mg DAILY PO Last administered on 05/31/18 08:17; Admin Dose 250 MG; Start 05/26/18 at 09:00 Fluoxetine HCl (Prozac) 10 mg DAILY PO Last administered on 05/31/18 08:17; Admin Dose 10 MG; Start 05/26/18 at 09:00 Fluticasone Propionate (Flonase 0.05% Nasal) 1 spray DAILY NASAL Last administered on 05/31/18 08:18; Admin Dose 1 SPRAY; Start 05/26/18 at 09:00 Polyethylene Glycol (Miralax) 17 gm DAILY PO Last administered on 05/30/18 08:13; Admin Dose 17 GM; Start 05/26/18 at 09:00 Arformoterol Tartrate (Brovana (Neb)) 2 ml BID RESP THERAPY NEB Last administered on 05/31/18 08:39; Admin Dose 2 ML; Start 05/25/18 at 20:00 Lorazepam (Ativan) 1 mg Q2H PRN IV Anxiety; Start 05/25/18 at 17:00 Multivitamins Therapeutic (Theragran) 1 tab DAILY PO Last administered on 05/31/18 08:18; Admin Dose 1 TAB; Start 05/26/18 at 09:00 Metoprolol Tartrate (Lopressor) 25 mg BID PO Last administered on 05/31/18 08:16; Admin Dose 25 MG; Start 05/26/18 at 21:00 Chlordiazepoxide (Librium) 10 mg TID PO Last administered on 05/31/18 08:17; Admin Dose 10 MG; Start 05/27/18 at 13:00 Albuterol (Ventolin Hfa) 2 puff Q6H RESP THERAPY PRN INH SHORTNESS OF BREATH; Start 05/28/18 at 16:00 Aspirin (Halfprin) 81 mg DAILY PO Last administered on 05/31/18 08:18; Admin Dose 81 MG; Start 05/31/18 at 09:00 Losartan Potassium (Cozaar) 25 mg DAILY PO Last administered on 05/31/18 08:17; Admin Dose 25 MG; Start 05/30/18 at 14:30 Thiamine HCl (Vitamin B1) 100 mg DAILY PO Last administered on 05/31/18 08:18; Admin Dose 100 MG; Start 05/30/18 at 14:30 Morphine Sulfate (morphine) 6 mg Q4H PRN PO SEVERE PAIN LEVEL 7-10 Last administered on 1/3/19at 10:58; Admin Dose 6 MG; Start 05/30/18 at 16:30 IVANA LANGSTON May 31, 2018 12:26
--- NOTE | 2018-05-31 13:06 | DS ---
Date/Time of Note Date/Time of Note DATE: 05/31/18 TIME: 12:51 Discharge Summary Admission/Discharge Info Admit Date/Time May 25, 2018 at 14:20 Discharge Date/Time Patient Condition: Stable Consults Dr Samantha Mac Procedures CT Brain IMPRESSION: 1. Negative for evidence of acute intracranial hemorrhage or significant mass effect. Negative for CT evidence of acute large territory vascular infarct. If there is concern for recent ischemia, consider MRI brain for further evaluation. 2. Patchy low density changes in the supratentorial deep white matter are nonspecific but likely due to chronic small vessel ischemia. Chronic lacunar infarcts in bilateral cerebral hemispheres as described. 3. Moderate intracranial atherosclerosis. Moderate diffuse cerebral tissue loss. CT LEFT TIBIA AND FIBULA WITHOUT CONTRAST CLINICAL INDICATION: 63 years of age, male. Pain. Trauma. Status post fall. OMPARISON: Left tibia and fibula x-rays from earlier the same day FINDINGS: BONES AND JOINTS: There is an acute comminuted and obliquely oriented fracture of the proximal tibial shaft with a posterior butterfly fragment that measures 7.2 cm. Fracture has a vertical orientation that extends to the a medial tibial plateau alongside the intercondylar eminence. Negative for significant depression at the articular surface. There is an acute comminuted fracture of the fibular neck. There is an old healed fracture of the distal fibula at the ankle. The knee is incompletely included in the imaging field. In particular, the patella and anterior femoral condyles have been excluded from the field of view. The knee is anatomically aligned where imaged. There is chondrocalcinosis of the menisci that may be seen with CPPD. There is a small knee joint effusion. Ankle is unremarkable. SOFT TISSUES: Mild vascular calcification of the popliteal arteries and vascular calcification of the calf arteries. There is soft tissue swelling overlying the proximal tibia and fibula at the site of the fractures. There is also soft tissue swelling around the popliteal vessels in the popliteal fossa. Additional comment: None. IMPRESSION: 1. Acute comminuted fracture of the proximal tibial shaft demonstrates intra- articular extension into the medial tibial plateau without step deformity at the articular surface. There is a small knee joint effusion. Please note that the knee is incompletely imaged on the CT. 2. Acute comminuted fracture of the neck of the fibula. 3. Soft tissue swelling surrounding the fractures and soft tissue swelling in the popliteal fossa overlying the popliteal vessels. Physician Maco Date Time Electronically viewed and signed by Physician Maco on 05/25/2018 22:20 Chest x-ray no acute process Left knee x-ray CLINICAL INDICATION: Post reduction TECHNIQUE: AP, lateral and oblique views of the left knee were obtained. COMPARISON: Left knee radiographs May 25 FINDINGS: Again noted is comminuted fracture of the proximal shaft and metaphysis of the tibia and a fracture of the neck of the fibula. The fractures do not appear to involve the articular margins. The knee joint is intact without anatomic alignment. No effusion is visualized. There is external fixator device. IMPRESSION: Adequate alignment of the comminuted fracture proximal shaft and metaphysis left tibia and fibular neck fracture. .Haroon Gordillo MD, MD XR Tibia and Fibula IMPRESSION: 1. Comminuted fracture of the left proximal tibia with mild medial and anterior displacement of the distal fracture fragments. 2. Mildly impacted fracture of the left proximal fibula. .Gabbie Campbell MD, Date XR Tibia and Fibula CLINICAL INDICATION: Trauma. Post reduction. IMPRESSION: Adequate alignment of the comminuted fracture proximal left tibia and fibula. .Haroon Gordillo MD, MD Date Carotid ultrasound #1 IMPRESSION: 1. Moderate stenosis ( 50 - 69% ) of the right internal carotid artery. 2. No evidence of a significant stenosis of the left internal carotid artery. 3. Normal antegrade flow in the vertebral arteries bilaterally. Measurement of carotid stenosis is based on peak systolic and diastolic velocity parameters that correlate to the residual internal carotid diameter with [place] Symptomatic Carotid Endarterectomy Trial (NASCET) based stenosis levels. Normal ( < 50% ) - ICA peak systolic velocity < 125 cm/sec, ICA / CCA ratio < 2.0 Moderate stenosis ( 50 - 69% ) - ICA peak systolic velocity 125 - 230 cm/sec, ICA / CCA ratio 2.0 - 4.0 Severe stenosis ( >70% ) - ICA peak systolic velocity > 230 cm/sec, ICA / CCA ratio > 4.0 Physician Jackie Date Time Carotid ultrasound #2 IMPRESSION: No evidence for hemodynamically significant carotid artery stenosis. Antegrade flow in the vertebral arteries bilaterally. If further characterization of the arterial vasculature is needed CTA is recommended. Validated velocity measurements with angiographic measurements, velocity criteria are extrapolated from diameter data as defined by the Society of Radiologists in Ultrasound Consensus Conference Radiology 2003; 229; 340 - 346. This study does indirectly reference the measurement of the distal internal carotid artery diameter as the denominator for stenosis measurement. .Jacques Husain MD, Date Time n 05/30/2018 12:02 CTA Neck IMPRESSION: 1. Focal 50 - 69% stenosis proximal right ICA due to calcified plaque. 2. Focal 50% stenosis proximal left ICA due to calcified plaque. 3. Aortic arch and great vessel origins were not included in the film of view. Donna Velez Physician MRI brain MRI brain IMPRESSION: 1. Acute to early subacute non-hemorrhagic lacunar infarct of the anterior right putamen measuring 10 x 7 mm. 2. Mild to moderate generalized parenchymal volume loss. 3. Moderate chronic microvascular white matter ischemic disease. 4. Remote lacunar infarcts of the posterior right putamen, the bilateral thalami, and left nevarez radiata. Scott Mcknight EEG IMPRESSION: Abnormal electroencephalogram due to: mld diffuse slowing. COMMENT: The slowing of the background indicates mild, diffuse cortical dysfunction of nonspecific etiology. Clinical correlation is advised. MIKE RENEE of Present Illness 63-year-old gentleman admitted after a fall at home. Concern of syncope Concern of leg injury. Hospital Course Hospital course -No further syncope. Etiology undetermined. Likely alcohol intoxication and hypovolemia. Unable to do orthostatics. No arrhythmias or hypoglycemia noted. There were no other episodes while in the hospital. Patient is seen by cardiology. Next seen by neurology. Alert oriented follows commands. Remote history of seizure disorder as childhood. EEG done which is nonspecific. No antiepileptic drugs needed. Carotid ultrasound concerning for stenosis. CT neck done. Patient was seen by vascular surgery. Recommendation to have vascular intervention down the line. MRI concerning for acute subacute ischemic stroke. Patient was treated medically. Aspirin/statin beta-twyla FERNANDO inhibitor initiated. Patient does not need acute rehab. Transfer to snf due to deconditioning. Continue PT OT ST there. Needs advanced care planning reevaluated due to high risk of stroke. In terms of his orthopedic injuries, he is nonweightbearing. Seen by orthopedic surgery. Conservative management brace etc. Need snf due to deconditioning. outpatient rehab/ therapy at home once stable for discharge. Patient and his sister are aware at his request. A/P 1. Syncope ukn etio, likely due to orthostatic changes/hypovolemia. unable to do orthostatics, stable observe, appreciate neurology opinion. MRI/ EEG results noted. 2. Carotid stenosis bilateral, possibly symptomatic, stable surgery down the line.. 3. Lt Tib- Fib fracture sp reduction/ immobilization, nwb, stable, dc to snf. XR prior to next ortho visit 4. Past alcoholism vs ongoing? 5. Nonadherence 6. Ftt: Dc to snf vs ARU 7. Anemia rule out occult bleed 8. H/o lacunar infarcts? MRI- subacute/ acute; recommend recovery from stroke/ leg fracture, then carotid surgery 9. Chr COPD 10. Past tobacco 11. Hypertension? 12. Dyslipidemia 13. Abn EKG, however echo w/o any wma's S: no history of tongue bite or incontinence. Recurrent falls possibly syncope occurring without any known aggravating or relieving factors. Sometimes days sometimes night sometimes outside his house. No previous history of injuries prior to this arrival. He drinks 4 beers a day. He is awake alert oriented to year month and eyes any chest pain palpitations loss of focal deficits speech or vision prior to these events. Denies any history of strokes. 05/29: No distress. No loss of speech vision focal deficits, chest pain or palpitations 05/30: No tongue bite no loss of speech or vision. Frustrated wants to ambulate. 05/31: No events. i Spoke with patient's neurologist and vascular surgeon. O: Vital signs stable PE No pallor adenopathy droop or carotid bruits appreciated s1s2 reg no m/r/g Clear Benign No edema; brace intact Neuro: Essentially symmet bilat Home Meds Reported Medications Buspirone Hcl* (Buspirone Hcl*) 10 Mg Tab, 10 MG PO TID, TAB 05/25/18 Trazodone Hcl* (Trazodone Hcl*) 100 Mg Tablet, 100 MG PO QHS, #30 TAB 05/25/18 Tiotropium [place]* (Spiriva*) 18 Mcg Cap.w.dev, 1 CAP INHALATION DAILY, #30 CAP 05/25/18 Fluticasone Propionate* (Fluticasone Propionate* Nasal) 50 Mcg/Garland - 16 Gm [place].susp, 1 SPRAY NASAL DAILY, #1 BOTTLE TO EACH NOSTRIL 05/25/18 [place]-3 Fatty Acids/Fish Oil (Fish Oil 1,000 mg Capsule) 1 Each Capsule, 2 EACH PO DAILY, CAP 05/25/18 Docusate Sodium* (Colace*) 250 Mg Capsule, 250 MG PO DAILY, #30 CAP 05/25/18 Budesonide-Formoterol Fumarate* (Symbicort*) 80-4.5 Inha, 2 PUFFS INHALATION BID, #1 EACH 05/25/18 Amlodipine Besylate* (Norvasc*) 5 Mg Tablet, 5 MG PO DAILY, TAB 05/25/18 Aspirin* (Aspirin* EC) 81 Mg Tablet.dr, 81 MG PO DAILY, TAB 05/25/18 Atorvastatin* (Atorvastatin*) 40 Mg Tablet, 40 MG PO QHS, #30 TAB 05/25/18 Hyaluronate Sodium (Euflexxa) 20 Mg/2 Ml Syringe, 20 MG IU Q7D 05/25/18 Fluoxetine Hcl* (Fluoxetine Hcl*) 10 Mg Tablet, 10 MG PO DAILY, TAB 05/25/18 Sildenafil Citrate* (Viagra*) 100 Mg Tablet, 100 MG PO Q24H PRN for NEEDED, TAB 05/25/18 Multivitamin with Minerals (Multivitamins with Minerals) 1 Each Tablet, 1 EACH PO DAILY, TAB 05/25/18 Albuterol Sulfate (Proair Respiclick) 90 Mcg Aer.pow.ba, 2 PUFFS INHALATION Q4H, #1 BOTTLE 05/25/18 Atenolol* (Atenolol*) 25 Mg Tablet, 25 MG PO DAILY, #30 TAB 05/25/18 Amlodipine Besylate* (Amlodipine Besylate*) 2.5 Mg Tablet, 2.5 MG PO DAILY, #30 TAB 05/25/18 Polyethylene Glycol* (Miralax*) 17 Gm Powd.pack, 17 GM PO DAILY, #30 PACKET 05/25/18 Menth/Me-Salicyl In [place] Oil (Castiva Cooling Lotion) 113 Gm Liquid, 113 GM TP QID 05/25/18 Cyanocobalamin* (Vitamin B-12*) 1,000 Mcg Tablet.sa, 1000 MCG PO DAILY, TAB 05/25/18 Cholecalciferol* (Vitamin D3*) 1,000 Unit Tablet, 1000 UNIT PO DAILY, TAB 05/25/18 Discontinued Reported Medications [place]-3S/Dha/Epa/Fish Oil (Fish Oil 1,000 mg Softgel) 1 Each Capsule, 1 EACH PO DAILY, CAP 05/25/18 Multivitamins* (Theragran*) 1 Tab Tab, 1 TAB PO DAILY, TAB 05/25/18 Primary Care Provider Not On Staff Doctor Time spent on discharge: > 30 minutes SURINDER NAVA MD May 31, 2018 13:05
--- NOTE | 2018-05-31 13:53 | CONS ---
Assessment/Plan Assessment/Plan Hospital Course A: 63 yo M with hx of brain surgery NOS, repeated syncopal episodes who presents following a fall c/b L tib/fib fx...for which neurology is consulted. Of note, he reports a Hx of epilepsy earlier in life following remote head trauma... Perhaps this is a syncopal episode.. Seizure is less likely. Of note, MRI brain revealed a small R putamen infarction.. CTA N is notable for moderate BL ICA stenoses, R> L. EEG is without evidence of epileptiform activity P: Recommend vascular surgeon to evaluate R carotid stenosis Cont asa/lipitor daily for secondary stroke prevention Other medical management and supportive care per primary Will follow clinically Result Diagram: 05/29/184 05/29/18 0434 Consultation Date/Type/Reason Admit Date/Time May 25, 2018 at 14:20 Type of Consult Neurology Requesting Provider: SURINDER NAVA MD Date/Time of Note DATE: 05/31/18 TIME: 13:53 24 HR Interval Summary Free Text/Dictation Continues telemetry monitoring. Pt still has c/o L leg pain. Exam Vital Signs Vitals Vital Signs Date Temp Pulse Resp B/P (MAP) Pulse Ox O2 O2 Flow FiO2 Time Delivery Rate 05/31/18 3.0 12:54 05/31/18 72 12:01 05/31/18 98.3 20 142/78 92 Room Air 11:37 (99) 05/31/18 21 08:42 Intake and Output 05/30/18 05/30/18 05/31/18 1515:00 23:00 07:00 IntakeIntake Total 600 ml 100 ml OutputOutput Total 1200 ml 750 ml BalanceBalance -600 ml -650 ml Exam PE: Gen Appearance: No Apparent Distress HEENT: Normocephalic Cardiovascular: Regular rate Lungs: Clear bilaterally Abdomen: Soft Extremities: Dry NE: The patient was alert and oriented.. Language was normal. Fund of knowledge was normal. Pupils were equal and reactive to light. There was no afferent pupillary defect. Visual singh were normal. Funduscopic examination was limited. Extra-ocular movements were full. Ptosis was absent. There was no nystagmus. Facial sensation was normal. Face was symmetric with normal strength. Hearing was intact. Palate movements were normal. Neck strength was normal. There was normal tongue bulk and speed of movement. Tone was normal. Muscle bulk was normal. I did not see fasciculations. Arms were strong; legs were pain-limited (L>R). Vibration sensation was normal. Temperature and pinprick sensation was normal. Rapid alternating movements were normal. There was no dysmetria. There was no intention tremor. Gait was deferred due to bedrest. Arm and leg reflexes were 2+ and symmetric. Rodriguez's sign was absent. Plantar responses were flexor. FILEMON AREVALO NP May 31, 2018 13:53
[2018-05-31] MEDS ORDERED: CARBOXYMETHYLCELLULOSE 0.5% 0.4 ML OPH BOTH EYES PRN (14:30)
--- NOTE | 2018-05-31 15:42 | NUR ---
CM NOTE PT HAS BEEN ACCEPTED AT [facility] PER CAIT AND MAY TRANSFER TODAY, [id number] [facility] TIME 0 THIS EVENING, ARLENE JENSEN MADE AWARE. TRIP NUMBER [id number]. [facility] [phone], PT MADE AWARE AND HE IS AGREEABLE AND ARLENE JENSEN TRANSFERRED A CALL FROM SISTER AND SHE WAS MADE AWARE OF THE TRANSFER.
--- NOTE | 2018-05-31 16:00 | NUR ---
Report given and endorsed care to Mary JACOBS.
--- NOTE | 2018-05-31 16:23 | NUR ---
PT EVAL Therapy day number 1 Evaluation Start Time 15:19 Evaluation Total Time 0 min Subjective Denies pain Pain Scale NUMERIC Pain Intensity 0 (0-10) Patient Stated Goal for Pain Relief 0 (0-10) Pain Level Comment denies pain Pre Treatment Vital Signs Stable Yes Exercise Assessment Label Right Lower Extremity Exercise Type Active ROM Additional Exercise Comments semi-supine APs, heel slides, SLR, seated LAQs, marching Supine to Sit Moderate Assist Transfer Sit to Stand Ability Dependent Bed Mobility Sit to Supine Minimum Assist Sitting Tolerance 15 min Additional Mobility Comments attempted STS x 2; pt unable to stand due to inability to maintain L LE NWB Patient uses wheelchair Not Applicable Additional Gait Comments TBA Weight Bearing Assessment Label Left Lower Extremity Weight Bearing Status Non Weight Bearing Static Sitting Balance Fair plus Dynamic Sitting Balance Fair Safety Judgement Fair Activity Tolerance Fair Additional Equipment Present L LE brace Post Treatment Pain Intensity 0 0-10 Variance Documentation SEE PT EVAL PT Technical Record Comment PT EVAL Pt is a 63 yo M with PMH of COPD, HTN, dyslipidemia, anxiety who sustained a ground-level fall with impact to L LE resulting in a comminuted fracture of L proximal tibia and mildly impacted fracture of L proximal fibula. Pt S/P L LE reduction and immobilization. MRI of brain concerning for acute subacute ischemic stroke. Pt received in 6W, telemetry. Precautions: L LE NWB PLOF: Pt lives alone in first floor apartment with 11 [address]. Ambulatory using rollator, FWW, or SPC as needed. CLOF: ARLENE Vela cleared pt for PT evaluation. Pt received in bed, vitals assessed and stable. Pt educated in purpose of PT evaluation and L LE NWB status. Pt participated in bed mobility, and transfer training as described above. Noted pt unable to achieve full sit to stand due to inability to maintain L LE NWB with transitional movement. Pt returned to bed, all needs within reach, bed alarm activated, RN notified of pt's status. Recommendation: Pt with generalized weakness, unable to perform sit to stand due to inability to maintain L LE NWB. Recommend 2-person assist for future therapy sessions. Also pt requires assistance managing L LE with bed mobility supine<>sitting EOB (min-modA). Pt will benefit from additional skilled PT services during hospital stay for further mobility training. D/C recommendation to post-acute setting once cleared by MD for further therapies. Plan: Continue c PT POC (Daily x 5) continue progressing transfer training
--- NOTE | 2018-05-31 20:10 | NUR ---
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 Pt has been sating 90-92% on RA throughout day. MD made aware, ordered keep patient overnight and put on O2 2L NC to keep above 92%. Will endorse care to mini shifter RN.
--- NOTE | 2018-05-31 20:28 | NUR ---
RN Notes: Notified Edward at [facility] that patient is staying in house.
[2018-05-31] MEDS: ATORVASTATIN 40 MG TAB PO SCH (21:22)
[2018-06-01] VITALS (8 sets, daily range): BP systolic 119–164; BP diastolic 63–87; PULSE 72–84; RESP 18–20
--- NOTE | 2018-06-01 07:40 | NUR ---
EOSS: PATIENT IS A/O X3-4, SR ON THE MONITORS, VSS, ON ROOM AIR, NO IV SITE, STILL HAS BRACE ON LEFT LEG, MANAGED PAIN THROUGHOUT THE NIGHT, NO C/O CP OR SOB, NO ACUTE EVENTS OVER NIGHT. PATIENT IS CLEAN AND DRY, HAS CALL LIGHT IN REACH, BED IN LOWEST POSITION, BED ALARM ON, NON-SLIP SOCKS ON, ROOM IS CLUTTER FREE. CONTINUE POC; WILL ENDORSE TO DAY SHIFT RN.
[2018-06-01] MEDS: CHOLECALCIFEROL 1,000 UNIT TAB PO SCH (08:40)
[2018-06-01] MEDS: ASPIRIN (EC) 81 MG TAB PO SCH (08:40)
[2018-06-01] MEDS: FLUTICASONE 0.05% 16 GM NAS SPRAY NASAL SCH (08:40)
[2018-06-01] MEDS: BUSPIRONE 10 MG TAB PO SCH ×2 (08:40→15:01)
[2018-06-01] MEDS: CYANOCOBALAMIN 500 MCG TAB PO SCH (08:40)
[2018-06-01] MEDS: DOCUSATE SODIUM 250 MG CAP PO SCH (08:41)
[2018-06-01] MEDS: FLUOXETINE 10 MG CAP PO SCH (08:41)
[2018-06-01] MEDS: METOPROLOL 25 MG TAB PO SCH (08:42)
[2018-06-01] MEDS: ENOXAPARIN 40 MG/0.4 ML SYG SC SCH (08:54)
[2018-06-01] MEDS: CHLORDIAZEPOXIDE 5 MG CAP PO SCH ×2 (08:55→14:58)
[2018-06-01] MEDS: MULTIVITAMINS THERAPEUTIC TAB PO SCH (08:55)
[2018-06-01] MEDS: POLYETHYLENE GLYCOL 17 GM PACKET PO SCH (08:55)
[2018-06-01] MEDS: THIAMINE 100 MG TAB PO SCH (08:55)
[2018-06-01] MEDS: ARFORMOTEROL TARTRATE 15MCG/2 ML AMP NEB SCH (09:32)
--- NOTE | 2018-06-01 12:06 | PDOCDIS ---
Discharge Instructions CONDITION [id number] Patient Condition: [id number] Stable HOME CARE INSTRUCTIONS: [id number] Special Diet: [id number] cardiac diet ACTIVITY: [id number] Activity Restrictions: [id number] Slowly Increase Activity No Weight Bearing (left leg) FOLLOW UP/APPOINTMENTS Follow-up Plan Dr Singh 1wk Dr Morris 1wk Dr Carver 2wks SURINDER NAVA MD Jun 01, 2018 12:06
[2018-06-01] MEDS ORDERED: THIA100T56 PO (12:07)
[2018-06-01] MEDS ORDERED: ENOX40DI12 SC (12:07)
--- NOTE | 2018-06-01 12:10 | DS ---
Date/Time of Note Date/Time of Note DATE: 06/01/18 TIME: 12:09 Discharge Summary Admission/Discharge Info Admit Date/Time May 25, 2018 at 14:20 Discharge Date/Time Patient Condition: Stable Hx of Present Illness 63-year-old gentleman admitted after a fall at home. Concern of syncope Concern of leg injury. Hospital Course Consults Dr Samantha Mac Procedures CT Brain IMPRESSION: 1. Negative for evidence of acute intracranial hemorrhage or significant mass effect. Negative for CT evidence of acute large territory vascular infarct. If there is concern for recent ischemia, consider MRI brain for further evaluation. 2. Patchy low density changes in the supratentorial deep white matter are nonspecific but likely due to chronic small vessel ischemia. Chronic lacunar infarcts in bilateral cerebral hemispheres as described. 3. Moderate intracranial atherosclerosis. Moderate diffuse cerebral tissue loss. CT LEFT TIBIA AND FIBULA WITHOUT CONTRAST CLINICAL INDICATION: 63 years of age, male. Pain. Trauma. Status post fall. OMPARISON: Left tibia and fibula x-rays from earlier the same day FINDINGS: BONES AND JOINTS: There is an acute comminuted and obliquely oriented fracture of the proximal tibial shaft with a posterior butterfly fragment that measures 7.2 cm. Fracture has a vertical orientation that extends to the a medial tibial plateau alongside the intercondylar eminence. Negative for significant depression at the articular surface. There is an acute comminuted fracture of the fibular neck. There is an old healed fracture of the distal fibula at the ankle. The knee is incompletely included in the imaging field. In particular, the patella and anterior femoral condyles have been excluded from the field of view. The knee is anatomically aligned where imaged. There is chondrocalcinosis of the menisci that may be seen with CPPD. There is a small knee joint effusion. Ankle is unremarkable. SOFT TISSUES: Mild vascular calcification of the popliteal arteries and vascular calcification of the calf arteries. There is soft tissue swelling overlying the proximal tibia and fibula at the site of the fractures. There is also soft tissue swelling around the popliteal vessels in the popliteal fossa. Additional comment: None. IMPRESSION: 1. Acute comminuted fracture of the proximal tibial shaft demonstrates intra- articular extension into the medial tibial plateau without step deformity at the articular surface. There is a small knee joint effusion. Please note that the knee is incompletely imaged on the CT. 2. Acute comminuted fracture of the neck of the fibula. 3. Soft tissue swelling surrounding the fractures and soft tissue swelling in the popliteal fossa overlying the popliteal vessels. Physician Maco Date Time Electronically viewed and signed by Joe Hinojosa Physician on 05/25/2018 22:20 Chest x-ray no acute process Left knee x-ray CLINICAL INDICATION: Post reduction TECHNIQUE: AP, lateral and oblique views of the left knee were obtained. COMPARISON: Left knee radiographs May 25 FINDINGS: Again noted is comminuted fracture of the proximal shaft and metaphysis of the tibia and a fracture of the neck of the fibula. The fractures do not appear to involve the articular margins. The knee joint is intact without anatomic alignment. No effusion is visualized. There is external fixator device. IMPRESSION: Adequate alignment of the comminuted fracture proximal shaft and metaphysis left tibia and fibular neck fracture. .Haroon Gordillo MD, MD XR Tibia and Fibula IMPRESSION: 1. Comminuted fracture of the left proximal tibia with mild medial and anterior displacement of the distal fracture fragments. 2. Mildly impacted fracture of the left proximal fibula. .Gabbie Campbell MD, MD XR Tibia and Fibula CLINICAL INDICATION: Trauma. Post reduction. IMPRESSION: Adequate alignment of the comminuted fracture proximal left tibia and fibula. .Haroon Gordillo MD, Date Carotid ultrasound #1 IMPRESSION: 1. Moderate stenosis ( 50 - 69% ) of the right internal carotid artery. 2. No evidence of a significant stenosis of the left internal carotid artery. 3. Normal antegrade flow in the vertebral arteries bilaterally. Measurement of carotid stenosis is based on peak systolic and diastolic velocity parameters that correlate to the residual internal carotid diameter with [place] Symptomatic Carotid Endarterectomy Trial (NASCET) based stenosis levels. Normal ( < 50% ) - ICA peak systolic velocity < 125 cm/sec, ICA / CCA ratio < 2.0 Moderate stenosis ( 50 - 69% ) - ICA peak systolic velocity 125 - 230 cm/sec, ICA / CCA ratio 2.0 - 4.0 Severe stenosis ( >70% ) - ICA peak systolic velocity > 230 cm/sec, ICA / CCA ratio > 4.0 Physician Jackie Date Time Carotid ultrasound #2 IMPRESSION: No evidence for hemodynamically significant carotid artery stenosis. Antegrade flow in the vertebral arteries bilaterally. If further characterization of the arterial vasculature is needed CTA is recommended. Validated velocity measurements with angiographic measurements, velocity criteria are extrapolated from diameter data as defined by the Society of Radiologists in Ultrasound Consensus Conference Radiology 2003; 229; 340 - 346. This study does indirectly reference the measurement of the distal internal carotid artery diameter as the denominator for stenosis measurement. .Jacques Husain MD, Date Time n 05/30/2018 12:02 CTA Neck IMPRESSION: 1. Focal 50 - 69% stenosis proximal right ICA due to calcified plaque. 2. Focal 50% stenosis proximal left ICA due to calcified plaque. 3. Aortic arch and great vessel origins were not included in the film of view. Donna Velez Physician MRI brain MRI brain IMPRESSION: 1. Acute to early subacute non-hemorrhagic lacunar infarct of the anterior right putamen measuring 10 x 7 mm. 2. Mild to moderate generalized parenchymal volume loss. 3. Moderate chronic microvascular white matter ischemic disease. 4. Remote lacunar infarcts of the posterior right putamen, the bilateral thalami, and left nevarez radiata. Scott Mcknight EEG IMPRESSION: Abnormal electroencephalogram due to: mld diffuse slowing. COMMENT: The slowing of the background indicates mild, diffuse cortical dysfunction of nonspecific etiology. Clinical correlation is advised. MIKE MORRIS of Present Illness 63-year-old gentleman admitted after a fall at home. Concern of syncope Concern of leg injury. Hospital Course Hospital course -No further syncope. Etiology undetermined. Likely alcohol intoxication and hypovolemia. Unable to do orthostatics. No arrhythmias or hypoglycemia noted. There were no other episodes while in the hospital. Patient is seen by cardiology. Next seen by neurology. Alert oriented follows commands. Remote history of seizure disorder as childhood. EEG done which is nonspecific. No antiepileptic drugs needed. Carotid ultrasound concerning for stenosis. CT neck done. Patient was seen by vascular surgery. Recommendation to have vascular intervention down the line. MRI concerning for acute subacute ischemic stroke. Patient was treated medically. Aspirin/statin beta-twyla FERNANDO inhibitor initiated. Patient does not need acute rehab. Transfer to snf due to deconditioning. Continue PT OT ST there. Needs advanced care planning reevaluated due to high risk of stroke. In terms of his orthopedic injuries, he is nonweightbearing. Seen by orthopedic surgery. Conservative management brace etc. Need snf due to deconditioning. outpatient rehab/ therapy at home once stable for discharge. Patient and his sister are aware at his request. A/P 1. Syncope ukn etio, likely due to orthostatic changes/hypovolemia. unable to do orthostatics, stable observe, appreciate neurology opinion. MRI/ EEG results noted. 2. Carotid stenosis bilateral, possibly symptomatic, stable surgery down the line.. 3. Lt Tib- Fib fracture sp reduction/ immobilization, nwb, stable, dc to snf. XR prior to next ortho visit 4. Past alcoholism vs ongoing? 5. Nonadherence 6. Ftt: Dc to snf vs ARU 7. Anemia rule out occult bleed 8. H/o lacunar infarcts? MRI- subacute/ acute; recommend recovery from stroke/ leg fracture, then carotid surgery 9. Chr COPD 10. Past tobacco 11. Hypertension? 12. Dyslipidemia 13. Abn EKG, however echo w/o any wma's 14. Hypoxia overnight? Probable atelectasis. Chest x-ray done. Incentive spirometry O2 to continue. Patient already on Lovenox S: no history of tongue bite or incontinence. Recurrent falls possibly syncope occurring without any known aggravating or relieving factors. Sometimes days sometimes night sometimes outside his house. No previous history of injuries prior to this arrival. He drinks 4 beers a day. He is awake alert oriented to year month and eyes any chest pain palpitations loss of focal deficits speech or vision prior to these events. Denies any history of strokes. 05/29: No distress. No loss of speech vision focal deficits, chest pain or palpitations 05/30: No tongue bite no loss of speech or vision. Frustrated wants to ambulate. 05/31: No events. i Spoke with patient's neurologist and vascular surgeon. 06/01 hypoxia overnight? No cough no expectoration no chest pain no edema. No distress O: Vital signs stable PE No pallor adenopathy droop or carotid bruits appreciated s1s2 reg no m/r/g Clear Benign No edema; brace intact Neuro: Essentially symmet bilat Home Meds Active Scripts Thiamine* (Vitamin B-1*) 100 Mg Tablet, 100 MG PO DAILY for 30 Days, TAB Prov:SURINDER NAVA MD 06/01/18 Enoxaparin Sodium (Enoxaparin Sodium) 40 Mg/0.4 Ml Syringe, 40 MG SC DAILY for 10 Days Prov:SURINDER NAVA MD 06/01/18 Reported Medications Buspirone Hcl* (Buspirone Hcl*) 10 Mg Tab, 10 MG PO TID, TAB 05/25/18 Tiotropium [place]* (Spiriva*) 18 Mcg Cap.w.dev, 1 CAP INHALATION DAILY, #30 CAP 05/25/18 Fluticasone Propionate* (Fluticasone Propionate* Nasal) 50 Mcg/Hudgins - 16 Gm Hudgins.susp, 1 SPRAY NASAL DAILY, #1 BOTTLE TO EACH NOSTRIL 05/25/18 [place]-3 Fatty Acids/Fish Oil (Fish Oil 1,000 mg Capsule) 1 Each Capsule, 2 EACH PO DAILY, CAP 12/28/18 Docusate Sodium* (Colace*) 250 Mg Capsule, 250 MG PO DAILY, #30 CAP 05/25/18 Budesonide-Formoterol Fumarate* (Symbicort*) 80-4.5 Inha, 2 PUFFS INHALATION BID, #1 EACH 05/25/18 Aspirin* (Aspirin* EC) 81 Mg Tablet.dr, 81 MG PO DAILY, TAB 05/25/18 Atorvastatin* (Atorvastatin*) 40 Mg Tablet, 40 MG PO QHS, #30 TAB 05/25/18 Fluoxetine Hcl* (Fluoxetine Hcl*) 10 Mg Tablet, 10 MG PO DAILY, TAB 05/25/18 Multivitamin with Minerals (Multivitamins with Minerals) 1 Each Tablet, 1 EACH PO DAILY, TAB 05/25/18 Albuterol Sulfate (Proair Respiclick) 90 Mcg Aer.pow.ba, 2 PUFFS INHALATION Q4H, #1 BOTTLE 05/25/18 Polyethylene Glycol* (Miralax*) 17 Gm Powd.pack, 17 GM PO DAILY, #30 PACKET 05/25/18 Menth/Me-Salicyl In [place] Oil (Castiva Cooling Lotion) 113 Gm Liquid, 113 GM TP QID 05/25/18 Cyanocobalamin* (Vitamin B-12*) 1,000 Mcg Tablet.sa, 1000 MCG PO DAILY, TAB 05/25/18 Cholecalciferol* (Vitamin D3*) 1,000 Unit Tablet, 1000 UNIT PO DAILY, TAB 05/25/18 Discontinued Reported Medications Trazodone Hcl* (Trazodone Hcl*) 100 Mg Tablet, 100 MG PO QHS, #30 TAB 05/25/18 Amlodipine Besylate* (Norvasc*) 5 Mg Tablet, 5 MG PO DAILY, TAB 05/25/18 Hyaluronate Sodium (Euflexxa) 20 Mg/2 Ml Syringe, 20 MG IU Q7D 05/25/18 Sildenafil Citrate* (Viagra*) 100 Mg Tablet, 100 MG PO Q24H PRN for NEEDED, TAB 05/25/18 Atenolol* (Atenolol*) 25 Mg Tablet, 25 MG PO DAILY, #30 TAB 05/25/18 Amlodipine Besylate* (Amlodipine Besylate*) 2.5 Mg Tablet, 2.5 MG PO DAILY, #30 TAB 05/25/18 [place]-3S/Dha/Epa/Fish Oil (Fish Oil 1,000 mg Softgel) 1 Each Capsule, 1 EACH PO DAILY, CAP 05/25/18 Multivitamins* (Theragran*) 1 Tab Tab, 1 TAB PO DAILY, TAB 05/25/18 Follow-up Plan Dr Singh 1wk Dr Morris 1wk Dr Carver 2wks Primary Care Provider Not On Staff Doctor Time spent on discharge: > 30 minutes SURINDER NAVA MD Jun 01, 2018 12:10
[2018-06-01] MEDS: TIOTROPIUM 18 MCG CAPSULE INHA DEV INH SCH (12:56)
--- NOTE | 2018-06-01 13:12 | CONS ---
Assessment/Plan Assessment/Plan Hospital Course A: 63 yo M with hx of brain surgery NOS, repeated syncopal episodes who presents following a fall c/b L tib/fib fx...for which neurology is consulted. Of note, he reports a Hx of epilepsy earlier in life following remote head trauma... Perhaps this is a syncopal episode.. Seizure is less likely. Of note, MRI brain revealed a small R putamen infarction.. CTA N is notable for moderate BL ICA stenoses, R> L. EEG is without evidence of epileptiform activity P: Cont asa/lipitor daily for secondary stroke prevention Other medical management and supportive care per primary Will follow clinically Result Diagram: 05/29/18 0434 05/29/18 0434 Consultation Date/Type/Reason Admit Date/Time May 25, 2018 at 14:20 Type of Consult Neurology Requesting Provider: SURINDER NAVA MD Date/Time of Note DATE: 06/01/18 TIME: 13:12 24 HR Interval Summary Free Text/Dictation Continues telemetry monitoring. No acute events reported. Seen by vascular surgery. Pt states that he is feeling okay today and is waiting to be discharged. Exam Vital Signs Vitals Vital Signs Date Temp Pulse Resp B/P (MAP) Pulse Ox O2 O2 Flow FiO2 Time Delivery Rate 06/01/18 76 12:04 06/01/18 98.2 20 164/84 95 Nasal 11:36 (110) Cannula 06/01/18 2.0 28 09:32 Intake and Output 05/31/18 05/31/18 06/01/18 1515:00 23:00 07:00 IntakeIntake Total 200 ml OutputOutput Total 600 ml BalanceBalance -400 ml Exam PE: Gen Appearance: No Apparent Distress HEENT: Normocephalic Cardiovascular: Regular rate Lungs: Clear bilaterally Abdomen: Soft Extremities: Dry NE: The patient was alert and oriented.. Language was normal. Fund of knowledge was normal. Pupils were equal and reactive to light. There was no afferent pupillary defect. Visual singh were normal. Funduscopic examination was limited. Extra-ocular movements were full. Ptosis was absent. There was no nystagmus. Facial sensation was normal. Face was symmetric with normal strength. Hearing was intact. Palate movements were normal. Neck strength was normal. There was normal tongue bulk and speed of movement. Tone was normal. Muscle bulk was normal. I did not see fasciculations. Arms were strong; legs were pain-limited (L>R). Vibration sensation was normal. Temperature and pinprick sensation was normal. Rapid alternating movements were normal. There was no dysmetria. There was no intention tremor. Gait was deferred due to bedrest. Arm and leg reflexes were 2+ and symmetric. Rodriguez's sign was absent. Plantar responses were flexor. FILEMON AREVALO NP Jun 01, 2018 13:12
--- NOTE | 2018-06-01 14:29 | NUR ---
PT NOTE Therapy day number 2 Subjective Current complaint of pain Pain Scale NUMERIC Pain Intensity 0 (0-10) Patient Stated Goal for Pain Relief 0 (0-10) Pain Level Comment LLE Exercise Assessment Label Right Lower Extremity Exercise Type Active ROM Additional Exercise Comments Semi-fowlers: AP's, heel slides, hip abd/add, SLR, SAQ Exercise Start Time 14:29 Exercise End Time 14:56 Total Exercise Time 27 min (8-127) Additional Mobility Comments Refused EOB activities due to pain and fatigue Patient uses wheelchair Not Applicable Additional Gait Comments TBA Weight Bearing Assessment Label Left Lower Extremity Weight Bearing Status Non Weight Bearing Activity Tolerance Fair Additional Equipment Present L LE brace Post Treatment Pain Intensity 10 0-10 Variance Documentation SEE BELOW AND PT NOTE Total Treament Time 27 min (8-127) Total Minutes 27 Total Units 2 PT Technical Record Comment PT NOTE S: Pt stated, "I am in pain and really tired." C/O 10/10, however agreeable for PT and cleared per RN Hiwot. O: Received pt in R side-lying, asleep. VCs to rouse. Pt performed RLE AROM thera ex, see above for exercises, 2 sets x 10 per exercise. Pt required a rest break after each exercise due to pain and fatigue. Left pt in comfort position, call light/phone within reach, bed alarmed, and all needs met. RN Hiwot informed of pt's status. Pt left attended w/RN Hiwot post tx. A: Fair tolerance to tx. Pt showed no signs of distress or SOB during or after tx. No c/o dizziness or nausea throughout tx. Limited tx and no EOB activities due to fatigue and pain. P: Continue POC and progress as tolerated.
[2018-06-01] MEDS: HYDROCODONE/APAP (5/325) TAB PO PRN ×2 (14:56→16:06)
--- NOTE | 2018-06-01 15:48 | NUR ---
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 TRIP NUMBER [phone].
[2018-06-01] MEDS: LOSARTAN 25 MG TAB PO SCH (16:08)
--- NOTE | 2018-06-01 17:42 | CONS ---
Date/Time of Note Date/Time of Note DATE: 06/01/18 TIME: 17:39 Assessment/Plan Assessment/Plan Hospital Course IMPRESSION: 1. Syncope, rule out cardiac etiology, rule out cardiac arrhythmia. -neg trop x 3 2. Abnormal electrocardiogram, assess for acute coronary syndrome. 3. Dyslipidemia without medications. 4. Left tibia fracture. 5. History of chronic obstructive pulmonary disease. 6. Possible anxiety disorder. 7. Hyponatremia-slowly improving 8. Leukocytosis. 9. carotid stenosis REcc: -Tele -Continue BB -pain control -continue statin -s/p vascular surgery consult given carotid stenosis with plans for outpatient f/u and plans for surgery -s/p orthopaedic surgical procedure -ok d/c planning from cardiac standpoint Result Diagram: 05/29/18 0434 05/29/18 0434 Consultation Date/Type/Reason Admit Date/Time May 25, 2018 at 14:20 Initial Consult Date 05/25/18 Type of Consult cardiology Reason for Consultation syncope Requesting Provider: SURINDER NAVA MD Exam/Review of Systems Vital Signs Vitals Vital Signs Date Temp Pulse Resp B/P (MAP) Pulse Ox O2 O2 Flow FiO2 Time Delivery Rate 06/01/18 98.6 75 20 129/66 97 Nasal 15:14 (87) Cannula 06/01/18 2.0 28 09:32 Intake and Output 05/31/18 05/31/18 06/01/18 1515:00 23:00 07:00 IntakeIntake Total 200 ml OutputOutput Total 600 ml BalanceBalance -400 ml Exam Review of Systems: CONSTITUTIONAL: No fevers, chills. PULMONARY: No sob CARDIOVASCULAR: No chest pain/palpitations GASTROINTESTINAL: No nausea/vomiting. GENITOURINARY: No hematuria/dysuria. MUSCULOSKELETAL: No myagias/arthalgias. PSYCHIATRIC: The patient denies depression. NEUROLOGIC: No weakness Constitutional: alert Psych: no complaints Head: normocephalic ENMT: mucosa pink and moist Neck: supple, jvd Respiratory: diminished breath sounds Cardiovascular: regular rate and rhythm Gastrointestinal: soft, non-tender Musculoskeletal: muscle weakness (generalized) Extremities: edema (none) Neurological: other (no focal deficits) Medications Medications Current Medications IV Flush (NS 3 ml) 3 ml PER PROTOCOL IV ; Start 05/25/18 at 16:00 Ondansetron HCl (Zofran Inj) 4 mg Q6H PRN IV NAUSEA AND/OR VOMITING; Start 05/25/18 at 16:00 Acetaminophen (Tylenol Tab) 650 mg Q6H PRN PO PAIN LEVEL 1-3 OR FEVER; Start 05/25/18 at 16:00 Acetaminophen/ Hydrocodone Bitart ([place]ney (5/325)) 1 tab Q6H PRN PO PAIN LEVEL 4-6 Last administered on 06/01/18 14:56; Admin Dose 1 TAB; Start 05/25/18 at 16:00 Enoxaparin Sodium (Lovenox) 40 mg DAILY SC Last administered on 06/01/18 08:54; Admin Dose 40 MG; Start 05/26/18 at 09:00 Tiotropium [place] (Spiriva) 1 inh DAILY INH Last administered on 06/01/18 12:56; Admin Dose 1 INH; Start 05/26/18 at 09:00 Albuterol (Proventil 0.083% (Neb)) 2.5 mg Q4H RESP THERAPY PRN HHN SHORTNESS OF BREATH; Start 05/25/18 at 16:30 Atorvastatin Calcium (Lipitor) 40 mg QHS PO Last administered on 05/31/18 21 :22; Admin Dose 40 MG; Start 05/25/18 at 21:00 Buspirone HCl (Buspar) 10 mg TID PO Last administered on 06/01/18 15:01; Admin Dose 10 MG; Start 05/25/18 at 21:00 Cholecalciferol (Vitamin D) 1,000 unit DAILY PO Last administered on 06/01/18 08:40; Admin Dose 1,000 UNIT; Start 05/26/18 at 09:00 Cyanocobalamin (Vitamin B12) 1,000 mcg DAILY PO Last administered on 06/01/18 08:40; Admin Dose 1,000 MCG; Start 05/26/18 at 09:00 Docusate Sodium (Colace) 250 mg DAILY PO Last administered on 06/01/18 08:41; Admin Dose 250 MG; Start 05/26/18 at 09:00 Fluoxetine HCl (Prozac) 10 mg DAILY PO Last administered on 06/01/18 08:41; Admin Dose 10 MG; Start 05/26/18 at 09:00 Fluticasone Propionate (Flonase 0.05% Nasal) 1 spray DAILY NASAL Last administered on 06/01/18 08:40; Admin Dose 1 SPRAY; Start 05/26/18 at 09:00 Polyethylene Glycol (Miralax) 17 gm DAILY PO Last administered on 06/01/18 0 8:55; Admin Dose 17 GM; Start 05/26/18 at 09:00 Arformoterol Tartrate (Brovana (Neb)) 2 ml BID RESP THERAPY NEB Last administered on 06/01/18 09:32; Admin Dose 2 ML; Start 05/25/18 at 20:00 Lorazepam (Ativan) 1 mg Q2H PRN IV Anxiety; Start 05/25/18 at 17:00 Multivitamins Therapeutic (Theragran) 1 tab DAILY PO Last administered on 06/01/18 08:55; Admin Dose 1 TAB; Start 05/26/18 at 09:00 Metoprolol Tartrate (Lopressor) 25 mg BID PO Last administered on 06/01/18 08:42; Admin Dose 25 MG; Start 05/26/18 at 21:00 Chlordiazepoxide (Librium) 10 mg TID PO Last administered on 06/01/18 14:58; Admin Dose 10 MG; Start 05/27/18 at 13:00 Albuterol (Ventolin Hfa) 2 puff Q6H RESP THERAPY PRN INH SHORTNESS OF BREATH; Start 05/28/18 at 16:00 Aspirin (Halfprin) 81 mg DAILY PO Last administered on 06/01/18 08:40; Admin Dose 81 MG; Start 05/31/18 at 09:00 Losartan Potassium (Cozaar) 25 mg DAILY PO Last administered on 06/01/18 16:08; Admin Dose 25 MG; Start 05/30/18 at 14:30 Thiamine HCl (Vitamin B1) 100 mg DAILY PO Last administered on 06/01/18 08:55; Admin Dose 100 MG; Start 05/30/18 at 14:30 Morphine Sulfate (morphine) 6 mg Q4H PRN PO SEVERE PAIN LEVEL 7-10 Last administered on 05/31/18 22:34; Admin Dose 6 MG; Start 05/30/18 at 16:30 Eye Lubricant (Refresh Plus) 1 drop QID PRN BOTH EYES DRY EYES; Start 05/31/18 at 14:30 IVANA LANGSTON 4, 2019 17:42
--- NOTE | 2018-06-01 17:55 | NUR ---
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.
== END 2018-06-01 19:24 | DRG 563 ==
LOC: E/R 11:29 → 6WM 14:20
PROVIDERS: ADMIT Family Medicine; ATTEND Internal Medicine
PROC: 0QSHXZZ Reposition Left Tibia, External Approach (ICD-10-PCS; principal; 2018-05-26)
DX: S82.142A Displaced bicondylar fracture of left tibia, initial encounter for closed fracture (principal); E87.1 Hypo-osmolality and hyponatremia; S82.402A Unspecified fracture of shaft of left fibula, initial encounter for closed fracture; R55 Syncope and collapse; R94.31 Abnormal electrocardiogram [ECG] [EKG]; I10 Essential (primary) hypertension; E78.5 Hyperlipidemia, unspecified; J44.9 Chronic obstructive pulmonary disease, unspecified; F41.9 Anxiety disorder, unspecified; F10.10 Alcohol abuse, uncomplicated; D72.829 Elevated white blood cell count, unspecified; I65.21 Occlusion and stenosis of right carotid artery; D64.9 Anemia, unspecified; W18.30XA Fall on same level, unspecified, initial encounter
CPT/HCPCS: 36415; 70450; 70498; 70553; 71045; 73562; 73590; 73700; 80048; 80053; 80061; 80307; 82270; 82550; 82553; 83036; 83540; 83690; 83735; 83930; 83935; 84100; 84439; 84443; 84484; 85025; 85610; 85651; 85730; 86592; 93005; 93306; 93880; 94640; 94664; 95819; 96374; 96375; 97110; 97161; J1170; J1650; J2270; J2274; J2405; J7030; L1832; Q9967